=== PATIENT | female | born 1955 | race Two or more races ===

== ENCOUNTER → 2020-04-28 09:48 | Outpatient (BNVA) | payer OTHER, SELFPAY | PROVIDERS: PCP Internal Medicine Endocrinology, Diabetes & Metabolism; Referring Provider Internal Medicine Endocrinology, Diabetes & Metabolism; Visit Provider Hospitalist | DX: J45.40 Moderate persistent asthma, uncomplicated (principal); G47.33 Obstructive sleep apnea (adult) (pediatric); D86.9 Sarcoidosis, unspecified; Z23 Encounter for immunization | CPT/HCPCS: 90686 ==

== ENCOUNTER → 2020-08-10 14:17 | Outpatient (BNVA) | payer OTHER, SELFPAY | PROVIDERS: PCP Internal Medicine Endocrinology, Diabetes & Metabolism; Visit Provider Hospitalist ==

== ENCOUNTER → 2020-08-30 10:29 | Outpatient (BNVA) | payer OTHER, SELFPAY | PROVIDERS: PCP Internal Medicine Endocrinology, Diabetes & Metabolism; Visit Provider Hospitalist | DX: D86.9 Sarcoidosis, unspecified (principal) ==

== ENCOUNTER → 2020-12-17 10:51 | Outpatient (BNVA) | payer OTHER, SELFPAY | PROVIDERS: PCP Internal Medicine Endocrinology, Diabetes & Metabolism; Visit Provider Hospitalist ==

== ENCOUNTER → 2021-06-20 13:28 | Outpatient (BNVA) | payer MEDICARE, OTHER, SELFPAY | PROVIDERS: PCP Internal Medicine Endocrinology, Diabetes & Metabolism; Visit Provider Hospitalist | DX: J45.40 Moderate persistent asthma, uncomplicated (principal); G47.33 Obstructive sleep apnea (adult) (pediatric); D86.9 Sarcoidosis, unspecified; I21.4 Non-ST elevation (NSTEMI) myocardial infarction; I42.9 Cardiomyopathy, unspecified; Z23 Encounter for immunization | CPT/HCPCS: 90471; 90686; 99212 ==

== ENCOUNTER 2021-09-29 09:52 | Outpatient (REF) | payer MEDICARE, OTHER, SELFPAY ==
--- NOTE | 2021-09-29 13:20 | PFT_ITS ---
Forced vital capacity is 77%, FEV1 82%. FEV1/FVC is 82. FEF 25-75 93%. MVV 74%. Post bronchodilator therapy, there is no change. Total lung capacity 75%. Residual volume 79%. Diffusion capacity 71%. CONCLUSION: Mild restrictive pulmonary disorder. No obstructive airway disorder. No response to bronchodilator therapy. Clinical correlation is recommended. MD SUNDAY Bryan/MODL / [id number]
== END 2021-09-29 09:53 | disposition home or self-care (01) ==
LOC: HO.RESP 09:52
PROVIDERS: PCP Internal Medicine Endocrinology, Diabetes & Metabolism; Visit Provider Hospitalist
DX: D86.9 Sarcoidosis, unspecified (principal)
CPT/HCPCS: 94060; 94727; 94729; 99212

== ENCOUNTER → 2022-01-05 10:29 | Outpatient (BNVA) | payer MEDICARE, OTHER, SELFPAY | PROVIDERS: PCP Internal Medicine Endocrinology, Diabetes & Metabolism; Visit Provider Hospitalist | DX: D86.9 Sarcoidosis, unspecified (principal); J45.40 Moderate persistent asthma, uncomplicated; G47.33 Obstructive sleep apnea (adult) (pediatric); I21.4 Non-ST elevation (NSTEMI) myocardial infarction; I42.9 Cardiomyopathy, unspecified | CPT/HCPCS: 99212 ==

== ENCOUNTER → 2022-04-24 10:26 | Outpatient (BNVA) | payer MEDICARE, OTHER, SELFPAY | PROVIDERS: PCP Internal Medicine Endocrinology, Diabetes & Metabolism; Visit Provider Hospitalist | DX: D86.9 Sarcoidosis, unspecified (principal); J45.40 Moderate persistent asthma, uncomplicated; G47.33 Obstructive sleep apnea (adult) (pediatric); I42.9 Cardiomyopathy, unspecified; I25.2 Old myocardial infarction; Z23 Encounter for immunization | CPT/HCPCS: 90471; 90686; 99212 ==

== ENCOUNTER 2022-06-19 16:07 | Outpatient (REF) | payer MEDICARE, OTHER, SELFPAY ==
--- NOTE | ~2022-06-19 | XR_ITS ---
EXAMINATION: XR CHEST CLINICAL INFORMATION: The lungs are well-expanded and clear of acute process. The heart size and pulmonary vascularity is normal. There are dual pacer electrodes in right atrium and right ventricle. No gross bony abnormality seen. COMPARISON: Chest x-ray 03/31/2020 TECHNIQUE: 2 views of the chest were obtained. FINDINGS: No significant abnormality is noted involving the heart, lungs, mediastinum, bony thorax or soft tissues. XR/XR chest 2V IMPRESSION: Unremarkable chest examination.
[2022-06-19 16:24] LABS: MANUAL DIFF FLAG NO
[2022-06-19 16:33] LABS: Basophils Absolute Auto 0.1 X10*3/uL (0.0-0.2); Basophils Percent Auto 0.8 % (0-2); Eosinophils Absolute Auto 0.3 X10*3/uL (0.0-0.4); Hematocrit 36.6 % (37.0-47.0); Hemoglobin 11.6 g/dl (12.0-16.0); Imm Gran Abs Auto 0.01 X10*3/uL (0.00-0.03); Imm Gran Pct Auto 0.2 % (0.0-0.4); Lymphocytes Absolute Auto 1.8 X10*3/uL (1.2-4.9); Lymphocytes Percent Auto 29.4 % (20-40); Mean Corpuscular HGB Conc 31.7 g/dl (31.0-35.0); Mean Corpuscular Hemoglobin 28.2 pg (27.0-33.0); Mean Corpuscular Volume 88.8 fL (80.0-98.0); Mean Platelet Volume 10.3 fL (9.4-12.3); Monocytes Absolute Auto 0.4 X10*3/uL (0.1-1.2); Monocytes Percent Auto 6.7 % (2-11); Neutrophils Absolute Auto 3.4 x10*3/uL (2.0-8.3); Neutrophils Percent Auto 57.9 % (45-73); Platelet Count 204 X10*3/uL (160-400); Red Blood Count 4.12 X10*6/uL (4.20-5.50); Red Cell Distribution Width 14.5 % (11.0-16.0)
[2022-06-19 17:00] LABS: Alanine Aminotransferase 19 U/L (0-31); Albumin Level 4.3 g/dL (3.5-5.0); Alkaline Phosphatase 56 U/L (39-117); Anion Gap 12 (12-20); Aspartate Amino Transferase 22 U/L (5-31); Bilirubin Direct < 0.2 mg/dL (0.0-0.5); Bilirubin Total 0.4 mg/dL (0.0-1.0); Blood Urea Nitrogen 23 mg/dL (9-16); Calcium 9.4 mg/dL (8.4-10.2); Carbon Dioxide 25 mmol/L (22-29); Chloride 106 mmol/L (96-108); Estimated Glomerular Filt Rate > 60; Glucose Random 82 mg/dL (60-115); Potassium 4.4 mmol/L (3.3-5.1); Sodium 139 mmol/L (135-145); Total Protein 7.2 g/dL (6.5-8.0)
[2022-06-19 17:28] LABS: Erythrocyte Sedimentation Rate 16 MM/HR (0-20)
[2022-06-22 01:23] LABS: TS Negative Control Passed; TS Panel A 2; TS Panel B 0; TS Positive Control Passed; TSpotTB Negative (Negative)
[2022-06-22 10:34] LABS: Anti Nuclear Antibody Screen POSITIVE (NEGATIVE)
[2022-06-22 10:43] LABS: Anti Nuclear Antibody Titer 1:40 titer
[2022-06-23 04:58] LABS: Angiotensin Converting Enzyme 38 U/L (9-67)
== END 2022-06-19 16:08 | disposition home or self-care (01) ==
LOC: HO.LAB 16:07
PROVIDERS: Visit Provider Hospitalist
DX: D86.9 Sarcoidosis, unspecified (principal); J45.40 Moderate persistent asthma, uncomplicated; R05.3 Chronic cough; G47.33 Obstructive sleep apnea (adult) (pediatric); I21.4 Non-ST elevation (NSTEMI) myocardial infarction; I42.9 Cardiomyopathy, unspecified; Z95.0 Presence of cardiac pacemaker; Z98.890 Other specified postprocedural states; Z79.899 Other long term (current) drug therapy
CPT/HCPCS: 36415; 71046; 80048; 80076; 82164; 85025; 85652; 86038; 86039; 86481; 99212

== ENCOUNTER → 2022-08-01 11:02 | Outpatient (BNVA) | payer MEDICARE, OTHER, SELFPAY | PROVIDERS: PCP Internal Medicine Endocrinology, Diabetes & Metabolism; Visit Provider Hospitalist | DX: D86.9 Sarcoidosis, unspecified (principal); G47.33 Obstructive sleep apnea (adult) (pediatric); J45.40 Moderate persistent asthma, uncomplicated; I21.4 Non-ST elevation (NSTEMI) myocardial infarction; I42.9 Cardiomyopathy, unspecified | CPT/HCPCS: 99212 ==

== ENCOUNTER 2022-09-05 14:42 | Outpatient (REF) | payer MEDICARE, OTHER, SELFPAY ==
[2022-09-05 17:35] LABS: Basophils Absolute Auto 0.1 X10*3/uL (0.0-0.2); Basophils Percent Auto 0.5 % (0-2); Eosinophils Absolute Auto 0.4 X10*3/uL (0.0-0.4); Eosinophils Percent Auto 4.7 % (0-4); Hematocrit 34.5 % (37.0-47.0); Hemoglobin 10.7 g/dl (12.0-16.0); Imm Gran Abs Auto 0.03 X10*3/uL (0.00-0.03); Imm Gran Pct Auto 0.3 % (0.0-0.4); Lymphocytes Absolute Auto 1.8 X10*3/uL (1.2-4.9); Lymphocytes Percent Auto 19.5 % (20-40); MANUAL DIFF FLAG NO; Mean Corpuscular Hemoglobin 26.9 pg (27.0-33.0); Mean Corpuscular Volume 86.7 fL (80.0-98.0); Mean Platelet Volume 10.4 fL (9.4-12.3); Monocytes Absolute Auto 0.7 X10*3/uL (0.1-1.2); Monocytes Percent Auto 7.2 % (2-11); Neutrophils Absolute Auto 6.4 x10*3/uL (2.0-8.3); Neutrophils Percent Auto 67.8 % (45-73); Platelet Count 367 X10*3/uL (160-400); Red Blood Count 3.98 X10*6/uL (4.20-5.50); Red Cell Distribution Width 15.3 % (11.0-16.0); White Blood Count 9.4 X10*3/uL (4.8-10.8)
[2022-09-05 17:45] LABS: D Dimer High Sensitivity 309 NG/ML
[2022-09-05 18:00] LABS: Alanine Aminotransferase 14 U/L (0-31); Albumin Level 3.8 g/dL (3.5-5.0); Alkaline Phosphatase 69 U/L (39-117); Anion Gap 16 (12-20); Aspartate Amino Transferase 16 U/L (5-31); Bilirubin Direct < 0.2 mg/dL (0.0-0.5); Bilirubin Total 0.2 mg/dL (0.0-1.0); Blood Urea Nitrogen 19 mg/dL (9-16); Calcium 8.8 mg/dL (8.4-10.2); Carbon Dioxide 27 mmol/L (22-29); Chloride 105 mmol/L (96-108); Estimated Glomerular Filt Rate > 60; Glucose Random 106 mg/dL (60-115); Potassium 4.8 mmol/L (3.3-5.1); Sodium 143 mmol/L (135-145); Total Protein 6.5 g/dL (6.5-8.0)
[2022-09-05 18:09] LABS: Troponin-I High Sensitivity < 3.5 ng/L (<3.5-17.0)
[2022-09-05 20:15] LABS: Erythrocyte Sedimentation Rate 95 MM/HR (0-20)
[2022-09-12 06:29] LABS: Angiotensin Converting Enzyme 34.8 U/L (9-67)
== END 2022-09-05 14:43 | disposition home or self-care (01) ==
LOC: HO.LAB 14:42
PROVIDERS: PCP Internal Medicine Endocrinology, Diabetes & Metabolism; Visit Provider Hospitalist
DX: J45.40 Moderate persistent asthma, uncomplicated (principal); G47.33 Obstructive sleep apnea (adult) (pediatric); R07.9 Chest pain, unspecified; I42.9 Cardiomyopathy, unspecified; R78.89 Finding of other specified substances, not normally found in blood; D86.9 Sarcoidosis, unspecified
CPT/HCPCS: 36415; 80048; 80076; 82164; 84484; 85025; 85379; 85652; 99212

== ENCOUNTER 2022-09-06 14:42 | Outpatient (REF) | payer MEDICARE, OTHER, SELFPAY ==
--- NOTE | ~2022-09-06 | CT_ITS ---
EXAMINATION: CT ANGIOGRAM OF THE CHEST WITH AND WITHOUT CONTRAST (CT PULMONARY ANGIOGRAM FOR PE) CLINICAL INFORMATION: Reason for Exam R07.9 - Chest pain, unspecified COMPARISON: Previous chest x-rays most recent May 2022 TECHNIQUE: Prior to contrast administration, noncontrast localization images were obtained. Subsequently, multidetector volumetric imaging was performed from the thoracic inlet to below the diaphragms following the administration of 65 mL Omnipaque 350 intravenous contrast. No contrast reaction reported Sagittal, coronal, and MIP oblique sagittal reformatted images were obtained on the CT workstation, uploaded to PACS, and reviewed. This CT examination was performed using dose optimization techniques as appropriate, variously including the following: *Automated exposure control *Adjustment of mA and/or kV according to patient size (this includes techniques or standardized protocols for targeted exams where dose is matched to indication/reason for exam; i.e. extremities or head) *Use of iterative reconstruction technique Total exam dose-length product 220 mGy-cm FINDINGS: QUALITY OF STUDY/CONTRAST BOLUS: Satisfactory. PULMONARY ARTERIES: No central or segmental pulmonary emboli. THORACIC AORTA: No aneurysm or dissection. LUNG: There is focal peripheral wedge-shaped consolidation and surrounding irregularly-shaped nodular opacities seen in the posterior segment of the right upper lobe. There are additional smaller bilateral pulmonary nodules and more irregularly-shaped nodular opacities. Largest pulmonary nodules measure 1.2 cm in the left upper lobe and right lower lobe. PLEURA: No pleural effusion or pneumothorax. MEDIASTINUM: Enlarged heart. Left subclavian dual chamber pacemaker. No pericardial effusion. No enlarged hilar or mediastinal lymph nodes. Upper normal-sized pulmonary arteries. Normal caliber thoracic aorta. CORONARY ARTERY CALCIFICATION: None visualized on this study. CHEST WALL/AXILLA: No axillary or internal mammary lymphadenopathy. OSSEOUS STRUCTURES: No acute or suspicious osseous abnormality. Degenerative changes of the spine. UPPER ABDOMEN: Unremarkable. No reflux of contrast into the hepatic veins to suggest elevated right heart pressures. CT/CT angio chest PE protocol IMPRESSION: No evidence of pulmonary embolism. Large area of consolidation in the posterior segment of the right upper lobe and surrounding smaller nodular opacities. Bilateral smaller pulmonary nodules and nodular opacities, largest measuring 1.2 cm. Infectious, inflammatory and neoplastic processes should be considered. Enlarged heart. Upper normal-sized pulmonary arteries. VTE: negative Findings will be communicated by the [facility] work flow infant childcare provider.
[2022-09-06] MEDS: iohexoL 350 MG/ML 100 ML INFUS..BTL IV (15:21)
== END 2022-09-06 14:43 | disposition home or self-care (01) ==
LOC: HO.CT 14:42
PROVIDERS: PCP Internal Medicine Endocrinology, Diabetes & Metabolism; Visit Provider Hospitalist
DX: R07.9 Chest pain, unspecified (principal); R78.89 Finding of other specified substances, not normally found in blood
CPT/HCPCS: 71275; Q9967

== ENCOUNTER → 2022-09-28 12:47 | Outpatient (BNVA) | payer MEDICARE, OTHER, SELFPAY | PROVIDERS: PCP Internal Medicine Endocrinology, Diabetes & Metabolism; Visit Provider Hospitalist | DX: J45.40 Moderate persistent asthma, uncomplicated (principal); J18.9 Pneumonia, unspecified organism; R91.8 Other nonspecific abnormal finding of lung field; G47.33 Obstructive sleep apnea (adult) (pediatric); I42.9 Cardiomyopathy, unspecified; D86.9 Sarcoidosis, unspecified | CPT/HCPCS: 99212 ==

== ENCOUNTER → 2022-10-17 10:55 | Outpatient (BNVA) | payer MEDICARE, OTHER, SELFPAY | PROVIDERS: PCP Internal Medicine Endocrinology, Diabetes & Metabolism; Visit Provider Hospitalist | DX: D86.9 Sarcoidosis, unspecified (principal); J45.40 Moderate persistent asthma, uncomplicated; G47.33 Obstructive sleep apnea (adult) (pediatric); I42.9 Cardiomyopathy, unspecified; R91.8 Other nonspecific abnormal finding of lung field; J18.9 Pneumonia, unspecified organism | CPT/HCPCS: 99212 ==

== ENCOUNTER 2023-01-16 12:48 | Outpatient (REF) | payer MEDICARE, OTHER, SELFPAY ==
--- NOTE | ~2023-01-16 | CT_ITS ---
EXAMINATION: CT CHEST WITHOUT CONTRAST CLINICAL INFORMATION: Pulmonary nodule >8 mm COMPARISON: CT angiogram chest 09/06/2022: Bilateral smaller pulmonary nodules and nodular opacities, largest measuring 1.2 cm. Infectious, inflammatory and neoplastic processes should be considered. TECHNIQUE: Multidetector volumetric CT imaging of the chest was done. Axial MIP volume rendering provided. Sagittal and coronal reformatted images were obtained. This CT examination was performed using dose optimization techniques as appropriate, variously including the following: *Automated exposure control *Adjustment of mA and/or kV according to patient size (this includes techniques or standardized protocols for targeted exams where dose is matched to indication/reason for exam; i.e. extremities or head) *Use of iterative reconstruction technique DLP: 118 mGy-cm FINDINGS: LUNGS: Since the prior study, there has been improvement in the wedge-shaped consolidation previously seen in the right upper lobe. However, the irregular-shaped nodular opacities seen surrounding this in a vivo-wp-apu-type configuration appear unchanged to minimally improved. For example, a right upper lobe opacity which had measured 1.2 x 1.2 cm now measures 1.1 x 1.0 cm (5:100 compare prior 7:92). Similar irregular opacities are present in the left upper lobe. A left upper lobe opacity that had measured 0.8 x 0.6 cm now measures 0.6 x 0.4 cm (5:88 compare prior 7:62). Both Lower lobes appear normal without worrisome opacity or nodular density. MEDIASTINUM: A left chest wall dual-lead pacemaker is again seen. Some small mediastinal lymph nodes are present but there is no adenopathy. No aortic aneurysm. Thyroid appears unremarkable. CORONARY ARTERY CALCIFICATION: Moderate PLEURA: There is no pleural effusion. No pleural mass or thickening. AXILLA: No lymphadenopathy. UPPER ABDOMEN: Unremarkable. OSSEOUS STRUCTURES: Degenerative changes are present in the spine. No bony destructive lesions. CT/CT chest wo IV con IMPRESSION: 1. Improvement in the wedge-shaped consolidation in the right upper lobe. 2. Other irregular-shaped opacities in the upper lobes are unchanged to minimally improved. 3. No new suspicious lung nodules are seen. 4. Suspect etiology to be inflammatory/infectious and 3 month follow-up CT is recommended. Fleischner guidelines were followed.
== END 2023-01-16 12:49 | disposition home or self-care (01) ==
LOC: HO.CT 12:48
PROVIDERS: PCP Internal Medicine Endocrinology, Diabetes & Metabolism; Visit Provider Hospitalist
DX: R91.8 Other nonspecific abnormal finding of lung field (principal)
CPT/HCPCS: 71250

== ENCOUNTER 2023-02-19 11:07 | Outpatient (AMB) | payer MEDICARE, OTHER, SELFPAY ==
--- NOTE | 2023-02-19 11:24 | MHC.OFFVIS ---
Intake Vital Signs 02/19/23 11:25 Height 4 ft 11 in Weight 141 lb BMI 28.5 Pulse 63 Pulse Source Pulse Oximeter Pulse Oximetry (%) 99 Oxygen Delivery Method Room Air Intake Visit Reasons: COPD Make Up Artist Required: No Allergies No Known Allergies [No Known Allergies*] Allergy (Verified 02/19/23 11:26) HPI HPI Comments History of Present Illness Details The patient is a 68-year-old woman with a known history of sarcoid and obstructive sleep apnea. During the last visit the patient was having some chest discomfort. Her EKG was abnormal and her cardiac enzymes were elevated. She was admitted to the hospital in transfer to [facility]. There, she did have a cardiac catheterization demonstrated no significant CAD which is reassuring. Ultimately, underwent an MRI of the heart demonstrating no significant infiltrative cardiac disease to suggest cardiac sarcoid. Also, in the past she did have a cardiac PET that was negative for any cardiac sarcoid. 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 Current the patient has been feeling better. Her shortness of breath has improved. no evidence of active cardiac sarcoid at this time. will recheck her Champ level in the next few weeks and have to Champ level is elevated we will talk about repeating her cardiac PET scan. 06/20/2021 the patient is here for a pulmonary follow-up visit. Since we last spoke the patient is admitted to [facility] with chest discomfort. She was found to have a non ST elevation myocardial infarction. The workup included an echocardiogram with EF of 50-55%. She was noted to have left ventricular hypertrophy. The patient also underwent a cardiac catheterization without any significant coronary artery disease. She did follow-up with cardiology. The concern is if indeed she could have some active cardiac sarcoidosis. She has had a history of high-grade cardiac pauses requiring a pacemaker in the past. The patient denies any respiratory symptoms. At this point the patient requires a cardiac PET to address the question of cardiac sarcoidosis and see if she needs systemic immunosuppression. She was on steroids in the past but resulted significant adverse effects and she could not tolerate the systemic therapy. Therefore, will be important to get a cardiac PET to assess her need for systemic therapy. 09/29/2021 the patient is here for a pulmonary follow-up visit. Overall the patient is doing fair. She started to have a lot of her symptoms that she had back when she was diagnosed with sarcoidosis. Some neuropathy issues in some headache issues and fatigue. She did have a cardiac PET scan that was reassuring without any activity in the heart although she still has significant nodular densities in the lungs and lymph nodes that are active consistent with active sarcoidosis. She also has some dyspnea on exertion. The patient did have a pulmonary function study that we did review in the office demonstrating a mild restrictive ventilatory defect likely suggestive of her active sarcoid. The patient is agreeable to starting a small dose of methotrexate in order to improve the inflammatory changes. I am also hopeful that this does will provide her with some relief. The patient is very sensitive to medications and out that we can keep her on a low-dose at this time. Before starting the medication she is going to have blood work to make sure that her kidneys liver and blood counts are stable. She continues using her CPAP. 01/05/2022 the patient is here for pulmonary follow-up visit. The patient appears to be upset. She recently underwent a thyroid ultrasound which demonstrated left sided thyroid nodule. Was recommended she get a biopsy. We did review the results together. Explained to her that this will be a relatively benign procedure with local anesthesia. The patient was reassured. She is going to go ahead and get the biopsy done. I in regards of her sarcoidosis, she recently started the methotrexate. She has not been taking it for too long. Therefore will go ahead and just continue to watch her on this lower dose. Will plan to get blood work prior to consider increasing the medication in the fall. Patient denies any significant shortness of breath. Denies any significant cough or any other concerning respiratory symptoms. 04/24/2022 the patient is here for a pulmonary follow-up visit. She has multiple complaints. She started developing some visual changes in addition to that she has noted a lump in her subcutaneous tissue. We did talk that this may be manifestation of sarcoidosis. She has been taking the methotrexate with good adherence. However, she is taking a very small dose. Therefore the dose may have to be adjusted. She did have blood work recently we did reviewed. Since that she has a very mild anemia. Appears to be stable compared to previous drops. Will continue to monitor. Other laboratory data was reassuring. Seems to tolerate the methotrexate. She is reluctant to take more. I did explain to her that if indeed the sarcoid is active then additional medication will be warranted. The other option is to add a small dose of prednisone. She will have an appoint with silk screen layout drafter soon therefore that area could be further addressed. The patient also states that she has been having issues with increased heart rate. She does have cardiology at [facility] although her mold finisher is retired. She needs to be set up with a new mold finisher at [facility] at this time. Her last cardiac PET scan was reassuring without any evidence of any cardiac involvement although she did have significant hypermetabolic activity of the lymph nodes. 06/19/2022 the patient is here for a pulmonary follow-up visit. She continues to have fatigue in addition to dyspnea. She also complains of no a dry hacky cough. Moderate severity. She has been on the methotrexate. Did talk about the risks and adverse effects of methotrexate. Will go ahead and have her undergo blood work in addition to a chest x-ray to see if there is any evidence of pneumonitis or evidence of any issues with the methotrexate. In view of her ongoing symptoms she may be a very good candidate for Remicade. Remicade will be able to stabilize her sarcoid symptoms inflammation to a greater affecting the methotrexate. In view of her ongoing cough may be a sign that she is not tolerating the Immunomodulator. In the meantime will go ahead and treat her cough. She does use respiratory medications. The patient is resistant to use any systemic steroids at this time. 08/01/2022 the patient is here for a pulmonary follow-up visit. She is still continues to complaint of dyspnea. She had increased her methotrexate to 6 tablets weekly. Her cough improved. Although she was doing better then all of a sudden she started feeling worse again. She has been having more shortness of breath and chest tightness. Unfortunately she could not get the Symbicort because it was too expensive. She does have a rescue inhaler. We did review her last blood work and chest x-ray which were all reassuring. At this point she seems to be tolerating the methotrexate. I do not see any evidence of any adverse effects of pulmonary toxicity. Will plan to continue the current regimen and repeat her blood work and chest x-ray in 6-8 weeks. In the meantime I do have a sample of Breo that I did provide the patient is she can start treating her asthma. Her blood work did demonstrate eosinophilia suggesting an allergic component to her asthma. In addition to not taking the Symbicort the patient ran out of the Singulair because it was back order at the pharmacy. I did send it to a different pharmacy in order for her to be started. The patient understands that stopping the singular also with worsen her asthma symptoms. Now back on the Singulair and starting the Breo I am hoping that her symptoms will continue to improve. If however she has worsening symptoms she is to call the office. Otherwise we will follow-up in 6-8 weeks. 09/05/2022 the patient is here for a sick visit. She started developing worsening cough and also pleuritic chest discomfort along with back pain. Moderate to severe. She had a hard time breathing with it. She did follow-up with her primary care doctor who ordered a D-dimer. This was done at [facility]. The D-dimer was indeed elevated 0.94 N anything about 0.5 is considered abnormal. She also complained of like discomfort. Fell some tenderness behind the calf in the knee. 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 However, with a positive D-dimer will going to have to further look into this. I will going to have her repeat the D-dimer and also get additional blood work including kidney function in case we need to do a CTA. The patient's last chest x-ray was without any acute disease. She does have underlying sarcoidosis that is being treated with methotrexate at this time. It may be the case that the methotrexate may not be holding or stabilizing the sarcoidosis and she may need a different agent. Therefore, will send her some prednisone that she can use in the meantime while we wait for the blood work to come back. 09/28/2022 the patient is here for sick visit. She initially was doing okay and all the sudden her cough returned. Initially she developed laryngitis and lost her voice and then her cough has been even worse. moderate to severe in severity. She has been able to sleep because of the cough. She took the prednisone without any significant improvement. She has been on the methotrexate. She did have an elevated D-dimer so therefore she underwent a CTA. We personally reviewed in the office. No evidence of any pulmonary emboli although the patient does have evidence of airspace disease. She has been on the azithromycin. Will go ahead and switch over to Vantin for better coverage. In the meantime will take her off the methotrexate just in case she is having an adverse reaction to the medication. Another option will be to place on CellCept which should be also helpful in decreasing the sarcoid activity but does not have the pulmonary adverse effects. Remicade is also good option. patient does not want take any medications that have to do with opiates therefore she is not willing to take any other cough syrup with codeine. The Tessalon Perles are only partially helpful. I did recommend she pear picker Mucinex DM to see if that would help some. Will reassess and a few weeks. If the patient is no better will consider bronchoscopy further diagnostic interventions to assess the abnormal findings on the CT scan. We did talk about the likelihood of the progression of the sarcoidosis. However, need to consider infectious processes and or noninfectious inflammatory conditions. Malignancy is also in differential though less likely based on the fact that she has had this nodular densities to some degree in the past. 10/17/2022 the patient is overall doing better. Her cough is better and her breathing is better. She does stop the methotrexate and she did take the prednisone and also the Vantin. She also started the mycophenolate. However, after reading the side effects in the adverse issues potentially with that she decided to stop it altogether. Clinically the patient is feeling better and she opts to avoid any immunosuppressants at this time specially since she is going to need surgery in a couple months. I did agree with her as long she is doing okay. If her symptoms were to worsen we can also readdressed. I do believe that she was having a reaction to the methotrexate at the end. A or if anything indeed a could have been an infectious process. Do a way to know for sure is to repeat the CT scan in several months after her surgery in order to see if there is any progression of the airspace disease and nodular densities. If indeed she becomes symptomatic we can address that earlier. But right now will try to minimize her immune suppression in view of her other ongoing issues. Clinically patient is doing better. She is using respiratory therapy. 02/19/2023 the patient is here for a pulmonary follow-up visit. The patient's breathing seems to be better overall. She stop the methotrexate and has been off the prednisone. She also completed the antibiotics. The patient has been noticing lower extremity edema which is new for her. Moderate in the mouth. The patient did have a Doppler ultrasound the ruled out DVT. She no longer has a mold finisher. She was being followed by Cardiology program at [facility] specially with when she was diagnosed with cardiac sarcoidosis. The patient has not had an echo in more than a year. Will go ahead and start her on diuretics because appears to be volume overloaded will request blood work and also request an echocardiogram. The patient needs to be stab which with a new mold finisher at this time. Hold off any treatments for sarcoid at this time. Although depending on the results we can talk about potential therapies. She tried immunomodulators without any significant improvement if anything worsening symptoms. I do believe that if she has any evidence of active sarcoidosis we can consider Remicade as a very good option for her. REPLACED BY [facility] Medical History (Updated 02/19/23 @ 11:49 by Naldo Salguero MD) Asthma Cardiomyopathy Limb swelling NSTEMI (non-ST elevated myocardial infarction) JES (obstructive sleep apnea) Pneumonia Pulmonary nodules Sarcoid Family History Other HTN (hypertension) Social History Patient Tobacco Use Status: Never used Tobacco Review of Systems Const Denies fatigue, Denies headache(s) and Denies night sweats ENT Denies change in voice, Denies headache(s) and Denies lip swelling Card Denies chest pain, Reports leg edema, Denies dyspnea and Reports dyspnea on exertion Resp Denies chest congestion, Reports cough, Denies excessive phlegm production, Denies dyspnea and Reports dyspnea on exertion GI Denies abdominal pain Musc Denies no additional complaints and Denies tingling Neuro Denies Neuro-related abnormal movements, Denies headache(s) and Denies tingling Psych Denies no additional complaints Endo Denies fatigue Gucci/Lymph Denies easy bleeding and Denies lymphadenopathy Aller/Immun Denies lip swelling Physical Exam Vital Signs: Last Vital Signs Pulse 63 02/19/23 11:25 Pulse Ox 99 02/19/23 11:25 Oxygen Delivery Method Room Air 02/19/23 11:25 BMI result Body Mass Index 28.5 Const General: alert Neck Neck: Yes normal visual inspection, Yes full ROM and Yes no lymphadenopathy Chest Chest palpation & inspection: normal inspection of the chest Resp Effort & Inspection: normal respiratory effort Auscultation: diminished lung sounds Cardio Rate: regular rate Rhythm: regular rhythm Heart sounds: S1 normal heart sound present, S2 normal heart sound present and Murmur heart sound present GI Palpation (GI): Soft to palpation and nontender Auscultation: normal bowel sounds Skin General skin exam: rashes and/or lesions noted Extrem General: Yes edema Assessment & Plan Assessment & Plan (1) Sarcoid: Code(s): D86.9 - Sarcoidosis, unspecified (2) Asthma: Code(s): J45.909 - Unspecified asthma, uncomplicated Qualifiers: Asthma complication type: uncomplicated Asthma persistence: persistent Asthma severity: moderate Qualified Code(s): J45.40 - Moderate persistent asthma, uncomplicated (3) JES (obstructive sleep apnea): Comment: Not compliant with CPAP at this time Code(s): G47.33 - Obstructive sleep apnea (adult) (pediatric) (4) Cardiomyopathy: Code(s): I42.9 - Cardiomyopathy, unspecified (5) Pulmonary nodules: Code(s): R91.8 - Other nonspecific abnormal finding of lung field Plan REC: start Lasix Bloodwork ECHO Cardiology referral consider remicade continue Breo continue singulair Continue Benzonates Mucinex DM OTC ABIGAIL as needed follow-up with Dermatology in addition to ophthalmology F/U 2-[address] chest Orders: Orders CA echo transthoracic complete Today I27.20 - Pulmonary hypertension, unspecified, I42.9 - Cardiomyopathy, unspecified, M79.89 - Other specified soft tissue disorders Complete Blood Count Auto Diff Today D86.9 - Sarcoidosis, unspecified, M79.89 - Other specified soft tissue disorders Basic Metabolic Panel Today D86.9 - Sarcoidosis, unspecified, M79.89 - Other specified soft tissue disorders Liver Panel Today D86.9 - Sarcoidosis, unspecified, M79.89 - Other specified soft tissue disorders Angiotensin Converting Enzyme Today J18.9 - Pneumonia, unspecified organism B Type Natriuretic Peptide Today I42.9 - Cardiomyopathy, unspecified, I50.9 - Heart failure, unspecified Referrals Cardiology Referral I42.9 - Cardiomyopathy, unspecified, M79.89 - Other specified soft tissue disorders Medications: New furosemide (Lasix) 20 mg PO DAILY 30 tabs 1RF Coding Level of Care Code Est Pt Level 4 (37698) Diagnoses Sarcoid D86.9 Asthma J45.40 Asthma complication type: uncomplicated Asthma persistence: persistent Asthma severity: moderate JES (obstructive sleep apnea) G47.33 Cardiomyopathy I42.9 Pulmonary nodules R91.8 Time Spent (min) 20
[2023-02-19 11:25] VITALS: PULSE 63; O2SAT 99; BMI 28.5
== END 2023-02-19 11:56 | disposition home or self-care (01) ==
PROVIDERS: PCP Internal Medicine Endocrinology, Diabetes & Metabolism; Visit Provider Hospitalist
DX: D86.9 Sarcoidosis, unspecified (principal); J45.40 Moderate persistent asthma, uncomplicated; G47.33 Obstructive sleep apnea (adult) (pediatric); I42.9 Cardiomyopathy, unspecified; R91.8 Other nonspecific abnormal finding of lung field
CPT/HCPCS: 99214

== ENCOUNTER 2023-02-19 11:07 | Outpatient (REF) | payer MEDICARE, OTHER, SELFPAY ==
[2023-02-19 12:25] LABS: MANUAL DIFF FLAG NO
[2023-02-19 14:08] LABS: Basophils Absolute Auto 0.1 X10*3/uL (0.0-0.2); Basophils Percent Auto 0.8 % (0-2); Eosinophils Absolute Auto 0.3 X10*3/uL (0.0-0.4); Eosinophils Percent Auto 4.5 % (0-4); Hematocrit 34.6 % (37.0-47.0); Hemoglobin 10.6 g/dl (12.0-16.0); Imm Gran Abs Auto 0.02 X10*3/uL (0.00-0.03); Imm Gran Pct Auto 0.3 % (0.0-0.4); Lymphocytes Absolute Auto 1.9 X10*3/uL (1.2-4.9); Lymphocytes Percent Auto 25.1 % (20-40); Mean Corpuscular HGB Conc 30.6 g/dl (31.0-35.0); Mean Corpuscular Hemoglobin 25.2 pg (27.0-33.0); Mean Corpuscular Volume 82.2 fL (80.0-98.0); Mean Platelet Volume 11.1 fL (9.4-12.3); Monocytes Absolute Auto 0.5 X10*3/uL (0.1-1.2); Monocytes Percent Auto 6.5 % (2-11); Neutrophils Absolute Auto 4.7 x10*3/uL (2.0-8.3); Neutrophils Percent Auto 62.8 % (45-73); Platelet Count 215 X10*3/uL (160-400); Red Blood Count 4.21 X10*6/uL (4.20-5.50); Red Cell Distribution Width 16.5 % (11.0-16.0); White Blood Count 7.5 X10*3/uL (4.8-10.8)
[2023-02-19 14:39] LABS: B Type Natriuretic Peptide 34 pg/mL (<100)
[2023-02-19 15:50] LABS: Alanine Aminotransferase 19 U/L (0-31); Alkaline Phosphatase 52 U/L (39-117); Anion Gap 13 (12-20); Aspartate Amino Transferase 22 U/L (5-31); Bilirubin Direct 0.2 mg/dL (0.0-0.5); Bilirubin Total 0.4 mg/dL (0.0-1.0); Blood Urea Nitrogen 27 mg/dL (9-16); Calcium 9.3 mg/dL (8.4-10.2); Carbon Dioxide 25 mmol/L (22-29); Chloride 110 mmol/L (96-108); Estimated Glomerular Filt Rate > 60; Glucose Random 56 mg/dL (60-115); Potassium 3.9 mmol/L (3.3-5.1); Sodium 144 mmol/L (135-145)
[2023-02-23 08:49] LABS: Angiotensin Converting Enzyme 33 U/L (9-67)
== END 2023-02-19 11:08 | disposition home or self-care (01) ==
LOC: HO.LAB 11:07
PROVIDERS: PCP Internal Medicine Endocrinology, Diabetes & Metabolism; Visit Provider Hospitalist
DX: R91.8 Other nonspecific abnormal finding of lung field (principal); M79.89 Other specified soft tissue disorders; J18.9 Pneumonia, unspecified organism; I42.9 Cardiomyopathy, unspecified; I50.9 Heart failure, unspecified; D86.9 Sarcoidosis, unspecified; J45.40 Moderate persistent asthma, uncomplicated; G47.33 Obstructive sleep apnea (adult) (pediatric)
CPT/HCPCS: 36415; 80048; 80076; 82164; 83880; 85025; 99212

== ENCOUNTER → 2023-03-30 12:45 | Outpatient (REF) | payer MEDICARE, OTHER, SELFPAY ==
--- NOTE | 2023-03-30 13:17 | CA_ITS ---
Transthoracic Echocardiogram Patient (Last, First, Middle): Sharon Zhu, Gender: Female Date of : 1955 Age: 68 Procedure Date: 03/30/2023 Procedure Type: Transthoracic Echocardiogram Location: OP Height: 149.86 cm Weight: 64.41 kg BSA: 1.59 m2 Heart Rate: 60 bpm BP: 155 / 75 mmHg Department Sales Manager: SABRA Reddy MD: Naldo Salguero MD Slat Basket Maker Helper Machine: Corey Martinez MD Symptoms: I27.20 - Pulmonary hypertension, unspecified Study Quality: Fair ECG Rhythm: Sinus Conclusions: - 1. Normal LV systolic function with severe asymmetric septal hypertrophy without obstructive physiology with impaired relaxation filling pattern 2. Mild mitral regurgitation 3. Normal RV systolic pressure 4. No gross pericardial effusion Findings Left Ventricle Normal left ventricular size, thickness, and systolic function. The visually estimated ejection fraction is between 60-65%. There is no dynamic left ventricular outflow tract obstruction. Spectral Doppler is indicative of an impaired relaxation filling pattern. E/E prime ratio is between 8 and 15 consistent with indeterminate filling pressures. There is severe septal asymmetric hypertrophy. Peak GLS is -17.5%, borderline normal. Right Ventricle Normal right ventricular cavity size and systolic function. Atria The left atrium is normal in size. There is no evidence of interatrial shunt. The right atrium is normal in size. Aortic Valve Normal aortic valve structure and function. There is no aortic valve stenosis. There is no aortic valve regurgitation. Mitral Valve Normal mitral valve structure and function. There is mild mitral valve regurgitation. There is no mitral valve stenosis. Pulmonic Valve The pulmonic valve is likely normal. There is trace pulmonic valve regurgitation. Tricuspid Valve Normal tricuspid valve structure. There is trace tricuspid valve regurgitation. The right ventricular systolic pressure is normal. Normal right atrial pressure. There is no evidence of pulmonary hypertension. Great Vessels All visible segments of the aorta are normal in size. The pulmonary artery was not well visualized. Venous The inferior vena cava is normal in size and collapses greater than 50% with inspiration. Pericardium/Pleural There is no evidence of pericardial effusion. Prior Study Comparison No prior study available for comparison. Measurements 2D Linear Measurements IVSd: 2.10 0.6-0.9/0.6-1.0 cm LVIDd: 3.10 3.9-5.3/4.2-5.9 cm LVIDd Index: 1.95 2.4-3.2/2.2-3.1 cm/m2 LVIDs: 2.00 2.0-3.6 cm LVPWd: 1.00 0.7-1.1 cm LA Diam: 3.70 2.7-3.8/3.0-4.0 cm LAIDs Index: 2.33 1.5-2.3 cm/m2 LV Mass: 216.88 67-162/88-224 g LV Mass Index: 136.40 43-95/49-115 g/m2 LVOT Diam: 1.90 3.0+(-)1.3 cm 2D Systolic Function EF 4C: 53.70 >55% EF 2C: 71.30 >55% EF BiP: 63.10 >55% Mitral Valve MV Pk E: 0.72 MV PK A: 0.70 MV Decel Time: 204.00 E/A: 1.00 E'Lateral: 10.10 E'Medial: 4.90 E/E' Med: 14.60 E/E' Lat: 7.10 PHT: 60.00 MVA PHT: 3.67 Decel Loíza: 3.50 Aortic Valve AoV Pk Dominik: 1.19 AoV Mn Dominik: 0.89 AoV VTI: 0.30 AoV Pk Grad: 6.00 Aov Mn Grad: 4.00 KAL Cont.VTI: 2.27 LVOT LVOT Pk Dominik: 0.93 LVOT Mn Dominik: 0.72 LVOT VTI: 0.24 LVOT Pk Grad: 3.00 LVOT Mn Grad: 2.00 LVOT Diam: 1.90 LVOT Area: 2.84 Diastolic Function MV Pk E: 0.72 MV Pk A: 0.70 E/A: 1.00 E'Medial: 4.90 E/E' Med: 14.60 E' Laterial: 10.10 E/E' Lat: 7.10 Right Ventricle TAPSE (mm): 17.10 TVS' Dominik: 9.57 Tricuspid Valve TR Pk Dominik: 1.79 TR Pk Grad: 13.00 RA Press: 3.00 RVSP: 16.00 Great Vessels Aorta Sinus of Valsalva: 3.30 2.0-3.5 cm Ao Asc: 3.40 2.1-3.4 cm Pulmonary Valve PV Pk Dominik: 1.05 Peak PV Grad: 4.00 Updated in Other Vendor System with Status of Final Corey Martinez MD electronically signed on 03/30/2023 3:56:46 PM with status of Final
== END ==
LOC: HO.CARD 12:45
PROVIDERS: PCP Internal Medicine Endocrinology, Diabetes & Metabolism; Visit Provider Hospitalist
DX: I27.20 Pulmonary hypertension, unspecified (principal); I42.9 Cardiomyopathy, unspecified; M79.89 Other specified soft tissue disorders
CPT/HCPCS: 93306; 93356

== ENCOUNTER → 2023-03-30 13:17 | Outpatient (BNV) | payer MEDICARE, OTHER, SELFPAY | PROVIDERS: PCP Internal Medicine Endocrinology, Diabetes & Metabolism; Visit Provider Internal Medicine Cardiovascular Disease | DX: I34.0 Nonrheumatic mitral (valve) insufficiency (principal) | CPT/HCPCS: 93306 ==

== ENCOUNTER 2023-05-15 10:00 | Outpatient (REF) | payer MEDICARE, OTHER, SELFPAY ==
[2023-05-15 10:19] LABS: MANUAL DIFF FLAG NO
[2023-05-15 10:40] LABS: Basophils Absolute Auto 0.1 X10*3/uL (0.0-0.2); Basophils Percent Auto 0.7 % (0-2); Eosinophils Absolute Auto 0.3 X10*3/uL (0.0-0.4); Eosinophils Percent Auto 4.5 % (0-4); Hemoglobin 12.4 g/dl (12.0-16.0); Imm Gran Abs Auto 0.02 X10*3/uL (0.00-0.03); Imm Gran Pct Auto 0.3 % (0.0-0.4); Lymphocytes Absolute Auto 1.9 X10*3/uL (1.2-4.9); Mean Corpuscular HGB Conc 31.8 g/dl (31.0-35.0); Mean Corpuscular Hemoglobin 26.6 pg (27.0-33.0); Mean Corpuscular Volume 83.5 fL (80.0-98.0); Mean Platelet Volume 9.8 fL (9.4-12.3); Monocytes Absolute Auto 0.5 X10*3/uL (0.1-1.2); Monocytes Percent Auto 7.7 % (2-11); Neutrophils Absolute Auto 4.1 x10*3/uL (2.0-8.3); Neutrophils Percent Auto 59.8 % (45-73); Platelet Count 320 X10*3/uL (160-400); Red Blood Count 4.67 X10*6/uL (4.20-5.50); Red Cell Distribution Width 14.1 % (11.0-16.0); White Blood Count 6.9 X10*3/uL (4.8-10.8)
[2023-05-15 11:08] LABS: Alanine Aminotransferase 24 U/L (0-31); Albumin Level 4.5 g/dL (3.5-5.0); Alkaline Phosphatase 56 U/L (39-117); Anion Gap 14 (12-20); Aspartate Amino Transferase 28 U/L (5-31); Bilirubin Direct 0.2 mg/dL (0.0-0.5); Bilirubin Total 0.4 mg/dL (0.0-1.0); Blood Urea Nitrogen 23 mg/dL (9-16); Calcium 9.8 mg/dL (8.4-10.2); Carbon Dioxide 28 mmol/L (22-29); Chloride 103 mmol/L (96-108); Estimated Glomerular Filt Rate 59; Glucose Random 91 mg/dL (60-115); Potassium 4.4 mmol/L (3.3-5.1); Sodium 141 mmol/L (135-145); Total Protein 8.1 g/dL (6.5-8.0)
[2023-05-15 11:32] LABS: Erythrocyte Sedimentation Rate 27 MM/HR (0-20)
== END 2023-05-15 10:01 | disposition home or self-care (01) ==
LOC: HO.LAB 10:00
PROVIDERS: PCP Internal Medicine Endocrinology, Diabetes & Metabolism; Visit Provider Hospitalist
DX: D86.9 Sarcoidosis, unspecified (principal); M79.89 Other specified soft tissue disorders
CPT/HCPCS: 36415; 80048; 80076; 85025; 85652

== ENCOUNTER 2023-05-21 10:06 | Outpatient (AMB) | payer MEDICARE, OTHER, SELFPAY ==
--- NOTE | 2023-05-21 10:16 | MHC.OFFVIS ---
Intake Intake Visit Reasons: copd Allergies No Known Allergies [No Known Allergies*] Allergy (Verified 02/19/23 11:26) HPI HPI Comments History of Present Illness Details The patient is a 68-year-old woman with a known history of sarcoid and obstructive sleep apnea. During the last visit the patient was having some chest discomfort. Her EKG was abnormal and her cardiac enzymes were elevated. She was admitted to the hospital in transfer to [facility]. There, she did have a cardiac catheterization demonstrated no significant CAD which is reassuring. Ultimately, underwent an MRI of the heart demonstrating no significant infiltrative cardiac disease to suggest cardiac sarcoid. Also, in the past she did have a cardiac PET that was negative for any cardiac sarcoid. 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 Current the patient has been feeling better. Her shortness of breath has improved. no evidence of active cardiac sarcoid at this time. will recheck her Champ level in the next few weeks and have to Champ level is elevated we will talk about repeating her cardiac PET scan. 01/05/2022 the patient is here for pulmonary follow-up visit. The patient appears to be upset. She recently underwent a thyroid ultrasound which demonstrated left sided thyroid nodule. Was recommended she get a biopsy. We did review the results together. Explained to her that this will be a relatively benign procedure with local anesthesia. The patient was reassured. She is going to go ahead and get the biopsy done. I in regards of her sarcoidosis, she recently started the methotrexate. She has not been taking it for too long. Therefore will go ahead and just continue to watch her on this lower dose. Will plan to get blood work prior to consider increasing the medication in the fall. Patient denies any significant shortness of breath. Denies any significant cough or any other concerning respiratory symptoms. 04/24/2022 the patient is here for a pulmonary follow-up visit. She has multiple complaints. She started developing some visual changes in addition to that she has noted a lump in her subcutaneous tissue. We did talk that this may be manifestation of sarcoidosis. She has been taking the methotrexate with good adherence. However, she is taking a very small dose. Therefore the dose may have to be adjusted. She did have blood work recently we did reviewed. Since that she has a very mild anemia. Appears to be stable compared to previous drops. Will continue to monitor. Other laboratory data was reassuring. Seems to tolerate the methotrexate. She is reluctant to take more. I did explain to her that if indeed the sarcoid is active then additional medication will be warranted. The other option is to add a small dose of prednisone. She will have an appoint with supervisor char house soon therefore that area could be further addressed. The patient also states that she has been having issues with increased heart rate. 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 She needs to be set up with a new field crop grower at [facility] at this time. Her last cardiac PET scan was reassuring without any evidence of any cardiac involvement although she did have significant hypermetabolic activity of the lymph nodes. 06/19/2022 the patient is here for a pulmonary follow-up visit. She continues to have fatigue in addition to dyspnea. She also complains of no a dry hacky cough. Moderate severity. She has been on the methotrexate. Did talk about the risks and adverse effects of methotrexate. Will go ahead and have her undergo blood work in addition to a chest x-ray to see if there is any evidence of pneumonitis or evidence of any issues with the methotrexate. In view of her ongoing symptoms she may be a very good candidate for Remicade. Remicade will be able to stabilize her sarcoid symptoms inflammation to a greater affecting the methotrexate. In view of her ongoing cough may be a sign that she is not tolerating the Immunomodulator. In the meantime will go ahead and treat her cough. She does use respiratory medications. The patient is resistant to use any systemic steroids at this time. 08/01/2022 the patient is here for a pulmonary follow-up visit. She is still continues to complaint of dyspnea. She had increased her methotrexate to 6 tablets weekly. Her cough improved. Although she was doing better then all of a sudden she started feeling worse again. She has been having more shortness of breath and chest tightness. Unfortunately she could not get the Symbicort because it was too expensive. She does have a rescue inhaler. We did review her last blood work and chest x-ray which were all reassuring. At this point she seems to be tolerating the methotrexate. I do not see any evidence of any adverse effects of pulmonary toxicity. Will plan to continue the current regimen and repeat her blood work and chest x-ray in 6-8 weeks. In the meantime I do have a sample of Breo that I did provide the patient is she can start treating her asthma. Her blood work did demonstrate eosinophilia suggesting an allergic component to her asthma. In addition to not taking the Symbicort the patient ran out of the Singulair because it was back order at the pharmacy. I did send it to a different pharmacy in order for her to be started. The patient understands that stopping the singular also with worsen her asthma symptoms. Now back on the Singulair and starting the Breo I am hoping that her symptoms will continue to improve. If however she has worsening symptoms she is to call the office. Otherwise we will follow-up in 6-8 weeks. 09/05/2022 the patient is here for a sick visit. She started developing worsening cough and also pleuritic chest discomfort along with back pain. Moderate to severe. She had a hard time breathing with it. She did follow-up with her primary care doctor who ordered a D-dimer. This was done at [facility]. The D-dimer was indeed elevated 0.94 N anything about 0.5 is considered abnormal. She also complained of like discomfort. Fell some tenderness behind the calf in the knee. 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 However, with a positive D-dimer will going to have to further look into this. I will going to have her repeat the D-dimer and also get additional blood work including kidney function in case we need to do a CTA. The patient's last chest x-ray was without any acute disease. She does have underlying sarcoidosis that is being treated with methotrexate at this time. It may be the case that the methotrexate may not be holding or stabilizing the sarcoidosis and she may need a different agent. Therefore, will send her some prednisone that she can use in the meantime while we wait for the blood work to come back. 09/28/2022 the patient is here for sick visit. She initially was doing okay and all the sudden her cough returned. Initially she developed laryngitis and lost her voice and then her cough has been even worse. moderate to severe in severity. She has been able to sleep because of the cough. She took the prednisone without any significant improvement. She has been on the methotrexate. She did have an elevated D-dimer so therefore she underwent a CTA. We personally reviewed in the office. No evidence of any pulmonary emboli although the patient does have evidence of airspace disease. She has been on the azithromycin. Will go ahead and switch over to Vantin for better coverage. In the meantime will take her off the methotrexate just in case she is having an adverse reaction to the medication. Another option will be to place on CellCept which should be also helpful in decreasing the sarcoid activity but does not have the pulmonary adverse effects. Remicade is also good option. patient does not want take any medications that have to do with opiates therefore she is not willing to take any other cough syrup with codeine. The Tessalon Perles are only partially helpful. I did recommend she cone picker Mucinex DM to see if that would help some. Will reassess and a few weeks. If the patient is no better will consider bronchoscopy further diagnostic interventions to assess the abnormal findings on the CT scan. We did talk about the likelihood of the progression of the sarcoidosis. However, need to consider infectious processes and or noninfectious inflammatory conditions. Malignancy is also in differential though less likely based on the fact that she has had this nodular densities to some degree in the past. 10/17/2022 the patient is overall doing better. Her cough is better and her breathing is better. She does stop the methotrexate and she did take the prednisone and also the Vantin. She also started the mycophenolate. However, after reading the side effects in the adverse issues potentially with that she decided to stop it altogether. Clinically the patient is feeling better and she opts to avoid any immunosuppressants at this time specially since she is going to need surgery in a couple months. I did agree with her as long she is doing okay. If her symptoms were to worsen we can also readdressed. I do believe that she was having a reaction to the methotrexate at the end. A or if anything indeed a could have been an infectious process. Do a way to know for sure is to repeat the CT scan in several months after her surgery in order to see if there is any progression of the airspace disease and nodular densities. If indeed she becomes symptomatic we can address that earlier. But right now will try to minimize her immune suppression in view of her other ongoing issues. Clinically patient is doing better. She is using respiratory therapy. 02/19/2023 the patient is here for a pulmonary follow-up visit. The patient's breathing seems to be better overall. She stop the methotrexate and has been off the prednisone. She also completed the antibiotics. The patient has been noticing lower extremity edema which is new for her. Moderate in the mouth. The patient did have a Doppler ultrasound the ruled out DVT. 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 She was being followed by Cardiology program at [facility] specially with when she was diagnosed with cardiac sarcoidosis. The patient has not had an echo in more than a year. Will go ahead and start her on diuretics because appears to be volume overloaded will request blood work and also request an echocardiogram. The patient needs to be stab which with a new field crop grower at this time. Hold off any treatments for sarcoid at this time. Although depending on the results we can talk about potential therapies. She tried immunomodulators without any significant improvement if anything worsening symptoms. I do believe that if she has any evidence of active sarcoidosis we can consider Remicade as a very good option for her. 05/21/2023 the patient is here for a pulmonary follow-up visit. Overall she is feeling better. She continues on the Lasix 20 mg daily. Although she has noticed some increased lower extremity swelling since we last spoke. Should go ahead increase it to 2 tablets for the next few days and then go back down to 20 mg daily. She did have an echocardiogram demonstrating significant asymmetric hypertrophy of the left ventricle. She will be following up with Cardiology soon. She is also going to have a pacemaker check as well. We did review her blood work which is reassuring. The inflammatory markers have subsided significantly. At this point the patient does not need any therapy for the sarcoid as appears to be dormant. She continues use respiratory therapy as needed. Recently she did have a upper respiratory illness and she was able to clear without any medications prescribed. Clinically the patient is doing better will follow-up in 4-6 months. [facility] Medical History (Updated 05/21/23 @ 10:17 by Naldo Salguero MD) Limb swelling Pneumonia Pulmonary nodules Cardiomyopathy NSTEMI (non-ST elevated myocardial infarction) JES (obstructive sleep apnea) Asthma Sarcoid Family History Other HTN (hypertension) Social History Patient Tobacco Use Status: Never used Tobacco Review of Systems Const Denies fatigue, Denies headache(s) and Denies night sweats ENT Denies change in voice, Denies headache(s) and Denies lip swelling Card Denies chest pain, Reports leg edema, Denies dyspnea and Denies dyspnea on exertion Resp Denies chest congestion, Reports cough, Denies excessive phlegm production, Denies dyspnea and Denies dyspnea on exertion GI Denies abdominal pain Musc Denies no additional complaints and Denies tingling Neuro Denies Neuro-related abnormal movements, Denies headache(s) and Denies tingling Psych Denies no additional complaints Endo Denies fatigue Gucci/Lymph Denies easy bleeding and Denies lymphadenopathy Aller/Immun Denies lip swelling Physical Exam Const General: alert HEENT Head: Yes normocephalic Neck Neck: Yes normal visual inspection, Yes full ROM and Yes no lymphadenopathy Chest Chest palpation & inspection: normal inspection of the chest Resp Effort & Inspection: normal respiratory effort Auscultation: diminished lung sounds Cardio Rate: regular rate Rhythm: regular rhythm Heart sounds: S1 normal heart sound present, S2 normal heart sound present and Murmur heart sound present GI Palpation (GI): Soft to palpation and nontender Auscultation: normal bowel sounds Skin General skin exam: rashes and/or lesions noted Extrem General: Yes edema Immunizations pneumoc 20-abhilash conj-dip cr(PF) 0.5 mL IM syringe Performing Provider: Naldo Salguero MD Performing Location: [facility] [place] [facility] Administered by: Linda Bhatti LPN on 05/21/23 10:33 Dose Route Admin Location Dispensed Lot Number Expiration Date 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 0.5 mL IM Left Deltoid 0.5 mL [id number] 05/22/24 [id number] [employer] [place] VIS Given Date VIS Provided VIS Publication Date 05/21/23 Single Vaccine 22 Eligibility Eligibility Date Funding Source Not [facility] Eligible 05/21/23 Private Assessment & Plan Assessment & Plan (1) Sarcoid: Code(s): D86.9 - Sarcoidosis, unspecified (2) Asthma: Code(s): J45.909 - Unspecified asthma, uncomplicated Qualifiers: Asthma complication type: uncomplicated Asthma persistence: persistent Asthma severity: moderate Qualified Code(s): J45.40 - Moderate persistent asthma, uncomplicated (3) JES (obstructive sleep apnea): Comment: Not compliant with CPAP at this time Code(s): G47.33 - Obstructive sleep apnea (adult) (pediatric) (4) Cardiomyopathy: Code(s): I42.9 - Cardiomyopathy, unspecified Qualifiers: Cardiomyopathy type: unspecified Qualified Code(s): I42.9 - Cardiomyopathy, unspecified (5) Pulmonary nodules: Code(s): R91.8 - Other nonspecific abnormal finding of lung field Plan REC: continue Lasix, additional lasix x 2-3 days, then back to 20mg daily Cardiology referral pending consider remicade, holding for now as the sarcoid appears to be dormant continue Breo continue singulair Continue Benzonates as needed ABIGAIL as needed follow-up with Dermatology in addition to ophthalmology F/U 4-6 months Orders: Orders Pneumococcal 20 Immunization Today Z23 - Encounter for immunization Medications: Changed From furosemide (Lasix) 20 mg PO DAILY 30 tabs 1RF To furosemide (Lasix) 40 mg (2 x 20 mg) PO DAILY 30 tabs 3RF Coding Level of Care Code Est Pt Level 4 (50335) Diagnoses Sarcoid D86.9 Moderate persistent asthma without complication J45.40 Asthma complication type: uncomplicated Asthma persistence: persistent Asthma severity: moderate JES (obstructive sleep apnea) G47.33 Cardiomyopathy, unspecified type I42.9 Cardiomyopathy type: unspecified Pulmonary nodules R91.8 Time Spent (min) 17
== END 2023-05-21 10:32 | disposition home or self-care (01) ==
PROVIDERS: PCP Internal Medicine Endocrinology, Diabetes & Metabolism; Visit Provider Hospitalist
DX: D86.9 Sarcoidosis, unspecified (principal); J45.40 Moderate persistent asthma, uncomplicated; G47.33 Obstructive sleep apnea (adult) (pediatric); I42.9 Cardiomyopathy, unspecified; R91.8 Other nonspecific abnormal finding of lung field
CPT/HCPCS: 99214

== ENCOUNTER → 2023-05-21 10:06 | Outpatient (BNVA) | payer MEDICARE, OTHER, SELFPAY | PROVIDERS: PCP Internal Medicine Endocrinology, Diabetes & Metabolism; Visit Provider Hospitalist | DX: Z23 Encounter for immunization (principal); D86.9 Sarcoidosis, unspecified; J45.40 Moderate persistent asthma, uncomplicated; R91.8 Other nonspecific abnormal finding of lung field; G47.33 Obstructive sleep apnea (adult) (pediatric); I42.9 Cardiomyopathy, unspecified | CPT/HCPCS: 90471; 90677; 99212 ==

== ENCOUNTER 2023-08-20 09:47 | Outpatient (REF) | payer MEDICARE, OTHER, SELFPAY ==
[2023-08-20 10:40] LABS: MANUAL DIFF FLAG NO
[2023-08-20 11:36] LABS: Basophils Absolute Auto 0.1 X10*3/uL (0.0-0.2); Basophils Percent Auto 0.8 % (0-2); Eosinophils Absolute Auto 0.3 X10*3/uL (0.0-0.4); Eosinophils Percent Auto 3.5 % (0-4); Hematocrit 33.9 % (37.0-47.0); Hemoglobin 10.7 g/dl (12.0-16.0); Imm Gran Abs Auto 0.02 X10*3/uL (0.00-0.03); Imm Gran Pct Auto 0.3 % (0.0-0.4); Lymphocytes Absolute Auto 1.9 X10*3/uL (1.2-4.9); Lymphocytes Percent Auto 25.9 % (20-40); Mean Corpuscular HGB Conc 31.6 g/dl (31.0-35.0); Mean Corpuscular Hemoglobin 26.1 pg (27.0-33.0); Mean Corpuscular Volume 82.7 fL (80.0-98.0); Mean Platelet Volume 10.5 fL (9.4-12.3); Monocytes Absolute Auto 0.5 X10*3/uL (0.1-1.2); Monocytes Percent Auto 7.4 % (2-11); Neutrophils Absolute Auto 4.5 x10*3/uL (2.0-8.3); Neutrophils Percent Auto 62.1 % (45-73); Platelet Count 228 X10*3/uL (160-400); Red Cell Distribution Width 14.5 % (11.0-16.0); White Blood Count 7.2 X10*3/uL (4.8-10.8)
[2023-08-20 12:19] LABS: Erythrocyte Sedimentation Rate 25 MM/HR (0-20)
[2023-08-20 12:42] LABS: Alanine Aminotransferase 19 U/L (0-31); Albumin Level 4.3 g/dL (3.5-5.0); Alkaline Phosphatase 55 U/L (39-117); Anion Gap 11 (12-20); Aspartate Amino Transferase 21 U/L (5-31); Bilirubin Direct 0.1 mg/dL (0.0-0.5); Bilirubin Total 0.3 mg/dL (0.0-1.0); Blood Urea Nitrogen 34 mg/dL (9-16); Calcium 9.2 mg/dL (8.4-10.2); Carbon Dioxide 26 mmol/L (22-29); Chloride 108 mmol/L (96-108); Estimated Glomerular Filt Rate 56; Glucose Random 92 mg/dL (60-115); Potassium 3.9 mmol/L (3.3-5.1); Sodium 141 mmol/L (135-145); Total Protein 7.7 g/dL (6.5-8.0)
[2023-08-20 13:13] LABS: TSH reflex Free T4 4.27 uIU/mL (0.32-4.0)
[2023-08-20 14:10] LABS: Free T4 (Free Thyroxine) 0.97 ng/dL (0.71-1.85)
[2023-08-23 17:59] LABS: Angiotensin Converting Enzyme 32 U/L (9-67)
== END 2023-08-20 09:48 | disposition home or self-care (01) ==
LOC: HO.LAB 09:47
PROVIDERS: PCP Internal Medicine Endocrinology, Diabetes & Metabolism; Visit Provider Hospitalist
DX: M79.89 Other specified soft tissue disorders (principal); D86.9 Sarcoidosis, unspecified; J45.40 Moderate persistent asthma, uncomplicated; I42.9 Cardiomyopathy, unspecified; R91.8 Other nonspecific abnormal finding of lung field; G47.33 Obstructive sleep apnea (adult) (pediatric)
CPT/HCPCS: 36415; 80048; 80076; 82164; 84439; 84443; 85025; 85652; 99212

== ENCOUNTER 2023-08-20 09:47 | Outpatient (AMB) | payer MEDICARE, OTHER, SELFPAY ==
[2023-08-20 09:55] VITALS: PULSE 67; O2SAT 100; BMI 32.0
--- NOTE | 2023-08-20 09:55 | A.OFFVIS_ITS ---
Intake Vital Signs 08/20/23 09:55 Height 4 ft 9 in Weight 148 lb BMI 32.0 Pulse 67 Pulse Source Pulse Oximeter Pulse Oximetry (%) 100 Oxygen Delivery Method Room Air Intake Visit Reasons: copd Computer Security Coordinator Required: No Allergies No Known Allergies [No Known Allergies*] Allergy (Verified 08/20/23 09:57) HPI HPI Comments History of Present Illness Details The patient is a 68-year-old woman with a known history of sarcoid and obstructive sleep apnea. During the last visit the patient was having some chest discomfort. Her EKG was abnormal and her cardiac enzymes were elevated. She was admitted to the hospital in transfer to [facility]. There, she did have a cardiac catheterization demonstrated no significant CAD which is reassuring. Ultimately, underwent an MRI of the heart demonstrating no significant infiltrative cardiac disease to suggest cardiac sarcoid. Also, in the past she did have a cardiac PET that was negative for any cardiac sarcoid. 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 Current the patient has been feeling better. Her shortness of breath has improved. no evidence of active cardiac sarcoid at this time. will recheck her Champ level in the next few weeks and have to Champ level is elevated we will talk about repeating her cardiac PET scan. 08/01/2022 the patient is here for a pulm onary follow-up visit. She is still continues to complaint of dyspnea. She had increased her methotrexate to 6 tablets weekly. Her cough improved. Although she was doing better then all of a sudden she started feeling worse again. She has been having more shortness of breath and chest tightness. Unfortunately she could not get the Symbicort because it was too expensive. She does have a rescue inhaler. We did review her last blood work and chest x-ray which were all reassuring. At this point she seems to be tolerating the methotrexate. I do not see any evidence of any adverse effects of pulmonary toxicity. Will plan to continue the current regimen and repeat her blood work and chest x-ray in 6-8 weeks. In the meantime I do have a sample of Breo that I did provide the patient is she can start treating her asthma. Her blood work did demonstrate eosinophilia suggesting an allergic component to her asthma. In addition to not taking the Symbicort the patient ran out of the Singulair because it was back order at the pharmacy. I did send it to a different pharmacy in order for her to be started. The patient understands that stopping the singular also with worsen her asthma symptoms. Now back on the Singulair and starting the Breo I am hoping that her symptoms will continue to improve. If however she has worsening symptoms she is to call the office. Otherwise we will follow-up in 6-8 weeks. 09/05/2022 the patient is here for a sick visit. She started developing worsening cough and also pleuritic chest discomfort along with back pain. Moderate to severe. She had a hard time breathing with it. She did follow-up with her primary care doctor who ordered a D-dimer. This was done at [facility]. The D-dimer was indeed elevated 0.94 N anything about 0.5 is considered abnormal. She also complained of like discomfort. Fell some tenderness behind the calf in the knee. 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 However, with a positive D-dimer will going to have to further look into this. I will going to have her repeat the D-dimer and also get additional blood work including kidney function in case we need to do a CTA. The patient's last chest x-ray was without any acute disease. She does have underlying sarcoidosis that is being treated with methotrexate at this time. It may be the case that the methotrexate may not be holding or stabilizing the sarcoidosis and she may need a different agent. Therefore, will send her some prednisone that she can use in the meantime while we wait for the blood work to come back. 09/28/2022 the patient is here for sick vi sit. She initially was doing okay and all the sudden her cough returned. Initially she developed laryngitis and lost her voice and then her cough has been even worse. moderate to severe in severity. She has been able to sleep because of the cough. She took the prednisone without any significant improvement. She has been on the methotrexate. She did have an elevated D-dimer so therefore she underwent a CTA. We personally reviewed in the office. No evidence of any pulmonary emboli although the patient does have evidence of airspace disease. She has been on the azithromycin. Will go ahead and switch over to Vantin for better coverage. In the meantime will take her off the methotrexate just in case she is having an adverse reaction to the medication. Another option will be to place on CellCept which should be also helpful in decreasing the sarcoid activity but does not have the pulmonary adverse effects. Remicade is also good option. patient does not want take any medications that have to do with opiates therefore she is not willing to take any other cough syrup with codeine. The Tessalon Perles are only partially helpful. I did recommend she shredder picker Mucinex DM to see if that would help some. Will reassess and a few weeks. If the patient is no better will consider bronchoscopy further diagnostic interventions to assess the abnormal findings on the CT scan. We did talk about the likelihood of the progression of the sarcoidosis. However, need to consider infectious processes and or noninfectious inflammatory conditions. Malignancy is also in differential though less likely based on the fact that she has had this nodular densities to some degree in the past. 10/17/2022 the patient is overall doing b claire. Her cough is better and her breathing is better. She does stop the methotrexate and she did take the prednisone and also the Vantin. She also started the mycophenolate. However, after reading the side effects in the adverse issues potentially with that she decided to stop it altogether. Clinically the patient is feeling better and she opts to avoid any immunosuppressants at this time specially since she is going to need surgery in a couple months. I did agree with her as long she is doing okay. If her symptoms were to worsen we can also readdressed. I do believe that she was having a reaction to the methotrexate at the end. A or if anything indeed a could have been an infectious process. Do a way to know for sure is to repeat the CT scan in several months after her surgery in order to see if there is any progression of the airspace disease and nodular densities. If indeed she becomes symptomatic we can address that earlier. But right now will try to minimize her immune suppression in view of her other ongoing issues. Clinically patient is doing better. She is using respiratory therapy. 02/19/2023 the patient is here for a pulm onary follow-up visit. The patient's breathing seems to be better overall. She stop the methotrexate and has been off the prednisone. She also completed the antibiotics. The patient has been noticing lower extremity edema which is new for her. Moderate in the mouth. The patient did have a Doppler ultrasound the ruled out DVT. 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 She was being followed by Cardiology program at [facility] specially with when she was diagnosed with cardiac sarcoidosis. The patient has not had an echo in more than a year. Will go ahead and start her on diuretics because appears to be volume overloaded will request blood work and also request an echocardiogram. The patient needs to be stab which with a new computer technology trainer at this time. Hold off any treatments for sarcoid at this time. Although depending on the results we can talk about potential therapies. She tried immunomodulators without any significant improvement if anything worsening symptoms. I do believe that if she has any evidence of active sarcoidosis we can consider Remicade as a very good option for her. 05/21/2023 [facility]. Overall she is feeling better. She continues on the Lasix 20 mg daily. Although she has noticed some increased lower extremity swelling since we last spoke. Should go ahead increase it to 2 tablets for the next few days and then go back down to 20 mg daily. She did have an echocardiogram demonstrating significant asymmetric hypertrophy of the left ventricle. She will be following up with Cardiology soon. She is also going to have a pacemaker check as well. We did review her blood work which is reassuring. The inflammatory markers have subsided significantly. At this point the patient does not need any therapy for the sarcoid as appears to be dormant. She continues use respiratory therapy as needed. Recently she did have a upper respiratory illness and she was able to clear without any medications prescribed. Clinically the patient is doing better will follow-up in 4-6 months. 08/20/2023 the patient is here for a pul onary follow-up visit. The patient continues to have difficulties. Complaining of episodes of tachycardia palpitations. In addition to that she is having some lower extremity edema. She is responding well to the Lasix. She was supposed to see Cardiology but since she is already established at [facility] they would not see her here in her situation being so complex. We did again review her echocardiogram demonstrating the significant asymmetric hypertrophy concerning. The patient does have an explosive ordnance specialist at [facility] that prescribes her metoprolol. She is describing episodes of tachycardia and palpitations so therefore since she has taking a small dose I will go up on it to 25 mg. She should be followed up with him soon and if he thinks his reasonable he can continue prescribing the higher dose if he does not then he can bring it down to the previous dose. The patient will have blood work as well in the meantime to make sure that she can not tolerate the additional diuresis. From a pulmonary standpoint she continues to do fairly well though still complaining of some shortness of breath [id number] severity. Her respiratory exam is clear. She is still waiting to have knee surgery and now having issues with surgeries that she is going to further require. Therefore rather not place her on any immunosuppressant therapy for the purpose of postoperative healing. No evidence of any active sarcoid at this time. [facility] Medical History (Updated 05/21/23 @ 10:17 by Naldo Salguero MD) Limb swelling Pneumonia Pulmonary nodules Cardiomyopathy NSTEMI (non-ST elevated myocardial infarction) JES (obstructive sleep apnea) Asthma Sarcoid Family History Other HTN (hypertension) Social History Patient Tobacco Use Status: Never used Tobacco Review of Systems Const Denies fatigue, Denies headache(s) and Denies night sweats ENT Denies change in voice, Denies headache(s) and Denies lip swelling Card Denies chest pain, Reports leg edema, Denies dyspnea and Denies dyspnea on exertion Resp Denies chest congestion, Reports cough, Denies excessive phlegm production, Denies dyspnea and Denies dyspnea on exertion GI Denies abdominal pain Musc Denies no additional complaints and Denies tingling Neuro Denies Neuro-related abnormal movements, Denies headache(s) and Denies tingling Psych Denies no additional complaints Endo Denies fatigue Gucci/Lymph Denies easy bleeding and Denies lymphadenopathy Aller/Immun Denies lip swelling Physical Exam Vital Signs: Last Vital Signs Pulse 67 08/20/23 09:55 Pulse Ox 100 08/20/23 09:55 Oxygen Delivery Method Room Air 08/20/23 09:55 BMI result Body Mass Index 32.0 Const General: alert HEENT Head: Yes normocephalic Neck Neck: Yes normal visual inspection, Yes full ROM and Yes no lymphadenopathy Chest Chest palpation & inspection: normal inspection of the chest Resp Effort & Inspection: normal respiratory effort Auscultation: diminished lung sounds Cardio Rate: regular rate Rhythm: regular rhythm Heart sounds: S1 normal heart sound present, S2 normal heart sound present and Murmur heart sound present GI Palpation (GI): Soft to palpation and nontender Auscultation: normal bowel sounds Skin General skin exam: rashes and/or lesions noted Extrem General: Yes edema Assessment & Plan Assessment & Plan (1) Sarcoid: Code(s): D86.9 - Sarcoidosis, unspecified (2) Asthma: Code(s): J45.909 - Unspecified asthma, uncomplicated Qualifiers: Asthma complication type: uncomplicated Asthma persistence: persistent Asthma severity: moderate Qualified Code(s): J45.40 - Moderate persistent asthma, uncomplicated (3) JES (obstructive sleep apnea): Comment: Not compliant with CPAP at this time Code(s): G47.33 - Obstructive sleep apnea (adult) (pediatric) (4) Cardiomyopathy: Code(s): I42.9 - Cardiomyopathy, unspecified Qualifiers: Cardiomyopathy type: unspecified Qualified Code(s): I42.9 - Cardiomyopa thy, unspecified (5) Pulmonary nodules: Code(s): R91.8 - Other nonspecific abnormal finding of lung field Plan REC: Cardiology referral pending at [facility] Increase TOPROL 12.5 TO 25mg daily continue diuresis as tolerated Bloodwork consider remicade, holding for now as the sarcoid appears to be dormant continue Breo continue singulair Continue Benzonates as needed ABIGAIL as needed follow-up with Dermatology in addition to ophthalmology F/U 3-4 months Orders: Orders Complete Blood Count Auto Diff Today D86.9 - Sarcoidosis, unspecified, M79.89 - Other specified soft tissue disorders Basic Metabolic Panel Today D86.9 - Sarcoidosis, unspecified, M79.89 - Other specified soft tissue disorders Angiotensin Converting Enzyme Today D86.9 - Sarcoidosis, unspecified, M79.89 - Other specified soft tissue disorders Erythrocyte Sedimentation Rate Today D86.9 - Sarcoidosis, unspecified, M79.89 - Other specified soft tissue disorders Liver Panel Today D86.9 - Sarcoidosis, unspecified, M79.89 - Other specified soft tissue disorders TSH reflex Free T4 Today D86.9 - Sarcoidosis, unspecified, M79.89 - Other specified soft tissue disorders Referrals Cardiology Referral D86.9 - Sarcoidosis, unspecified, I42.9 - Cardiomyopathy, unspecified Medications: New metoprolol succinate ER 25 mg PO DAILY 30 days 30 tabs 1RF furosemide (Lasix) 40 mg (2 x 20 mg) PO DAILY 30 days 60 tabs 2RF Refilled furosemide (Lasix) 40 mg (2 x 20 mg) PO DAILY 30 tabs 3RF Coding Level of Care Code Est Pt Level 4 (20035) Diagnoses Sarcoid D86.9 Moderate persistent asthma without complication J45.40 Asthma complication type: uncomplicated Asthma persistence: persistent Asthma severity: moderate JES (obstructive sleep apnea) G47.33 Cardiomyopathy, unspecified type I42.9 Cardiomyopathy type: unspecified Pulmonary nodules R91.8 Time Spent (min) 17
== END 2023-08-20 10:17 | disposition home or self-care (01) ==
PROVIDERS: PCP Internal Medicine Endocrinology, Diabetes & Metabolism; Visit Provider Hospitalist
DX: D86.9 Sarcoidosis, unspecified (principal); J45.40 Moderate persistent asthma, uncomplicated; G47.33 Obstructive sleep apnea (adult) (pediatric); I42.9 Cardiomyopathy, unspecified; R91.8 Other nonspecific abnormal finding of lung field
CPT/HCPCS: 99214

== ENCOUNTER 2023-11-26 09:57 | Outpatient (AMB) | payer MEDICARE, OTHER, SELFPAY ==
[2023-11-26 10:04] VITALS: PULSE 71; O2SAT 97; BMI 32.7
--- NOTE | 2023-11-26 10:04 | A.OFFVIS_ITS ---
Vital Signs 11/26/23 10:04 Height 4 ft 9 in Weight 151 lb BMI 32.7 Pulse 71 Pulse Source Pulse Oximeter Pulse Oximetry (%) 97 Oxygen Delivery Method Room Air Intake Visit Reasons: COPD Heating Element Repairer Required: No Allergies No Known Allergies [No Known Allergies*] Allergy (Verified 11/26/23 10:07) HPI Comments Details: The patient is a 68-year-old woman with a known history of sarcoid and obstructive sleep apnea. During the last visit the patient was having some chest discomfort. Her EKG was abnormal and her cardiac enzymes were elevated. She was admitted to the hospital in transfer to [facility]. There, she did have a cardiac catheterization demonstrated no significant CAD which is reassuring. Ultimately, underwent an MRI of the heart demonstrating no sig nificant infiltrative cardiac disease to suggest cardiac sarcoid. Also, in the past she did have a cardiac PET that was negative for any cardiac sarcoid. 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 Current the patient has been feeling better. Her shortness of breath has improved. no evidence of active cardiac sarcoid at this time. will recheck her Champ level in the next few weeks and have to Champ level is elevated we will talk about repeating her cardiac PET scan. 10/17/2022 the patient is overall doing better. Her cough is better and her breathing is better. She does stop the methotrexate and she did take the prednisone and also the Vantin. She also started the mycophenolate. However, after reading the side effects in the adverse issues potentially with that she decided to stop it altogether. Clinically the patient is feeling better and she opts to avoid any immunosuppressants at this time specially since she is going to need surgery in a couple months. I did agree with her as long she is doing okay. If her symptoms were to worsen we can also readdressed. I do believe that she was having a reaction to the methotrexate at the end. A or if anything indeed a could have been an infectious process. Do a way to know for sure is to repeat the CT scan in several months after her surgery in order to see if there is any progression of the airspace disease and nodular densities. If indeed she becomes symptomatic we can address that earlier. But right now will try to minimize her immune suppression in view of her other ongoing issues. Clinically patient is doing better. She is using respiratory therapy. 02/19/2023 the patient is here for a pulmonary follow-up visit. The patient's breathing seems to be better overall. She stop the methotrexate and has been off the prednisone. She also completed the antibiotics. The patient has been noticing lower extremity edema which is new for her. Moderate in the mouth. The patient did have a Doppler ultrasound the ruled out DVT. She no longer has a marketing technology specialist. She was being followed by Cardiology program at [facility] specially with when she was diagnosed with cardiac sarcoidosis. The patient has not had an echo in more than a year. Will go ahead and start her on diuretics because appears to be volume overloaded will request blood work and also request an echocardiogram. The patient needs to be stab which with a new marketing technology specialist at this time. Hold off any treatments for sarcoid at this time. Although depending on the results we can talk about potential therapies. She tried immunomodulators without any significant improvement if anything worsening symptoms. I do believe that if she has any evidence of active sarcoidosis we can consider Remicade as a very good option for her. 05/21/2023 the patient is here for a pulmonary follow-up visit. Overall she is feeling better. She continues on the Lasix 20 mg daily. Although she has noticed some increased lower extremity swelling since we last spoke. Should go ahead increase it to 2 tablets for the next few days and then go back down to 20 mg daily. She did have an echocardiogram demonstrating significant asymmetric hypertrophy of the left ventricle. She will be following up with Cardiology soon. She is also going to have a pacemaker check as well. We did review her blood work which is reassuring. The inflammatory markers have subsided significantly. At this point the patient does not need any therapy for the sarcoid as appears to be dormant. She continues use respiratory therapy as needed. Recently she did have a upper respiratory illness and she was able to clear without any medications prescribed. Clinically the patient is doing better will follow-up in 4-6 months. 08/20/2023 the patient is here for a pulmonary follow-up visit. The patient continues to have difficulties. Complaining of episodes of tachycardia palpitations. In addition to that she is having some lower extremity edema. She is responding well to the Lasix. She was supposed to see Cardiology but since she is already established at [facility] they would not see her here in her situation being so complex. We did again review her echocardiogram demonstrating the significant asymmetric hypertrophy concerning. The patient does have an diamond sorter at [facility] that prescribes her metoprolol. She is describing episodes of tachycardia and palpitations so therefore since she has taking a small dose I will go up on it to 25 mg. She should be followed up with him soon and if he thinks his reasonable he can continue prescribing the higher dose if he does not then he can bring it down to the previous dose. The patient will have blood work as well in the meantime to make sure that she can not tolerate the additional diuresis. From a pulmonary standpoint she continues to do fairly well though still complaining of some shortness of breath [id number] severity. Her respiratory exam is clear. She is still waiting to have knee surgery and now having issues with surgeries that she is going to further require. Therefore rather not place her on any immunosuppressant therapy for the purpose of postoperative healing. No evidence of any active sarcoid at this time. 11/26/2023 the patient is here for a pulmonary follow-up visit. Patient is concerned that she is developing worsening she did finally see Cardiology at [facility]. She is scheduled to undergo an MRI of the heart to assess for any cardiac sarcoid. She was told to stop the Lasix. She stopped it after 3 days she noticed significant swelling of her lower extremity and she became very concerned. She started noticing some decrease appetite and early satiety. The patient did restart taking the Lasix. I did recommend she can talk to her marketing technology specialist regarding now. Once she gets her MRI of the heart I will go ahead and review to see if there is any active sarcoid. If the patient does have active sarcoidosis then will have to see about starting immunomodulator therapy or biologic therapy. She has been on multiple medications in the past. I do believe that Remicade will be a better option for her moving forward if she has any activity. In the meantime she will take additional diuresis today. [facility] Medical History (Updated 05/21/23 @ 10:17 by Naldo Salguero MD) Limb swelling Pneumonia Pulmonary nodules Cardiomyopathy NSTEMI (non-ST elevated myocardial infarction) JES (obstructive sleep apnea) Asthma Sarcoid Family History Other HTN (hypertension) Social History Patient Tobacco Use Status: Never used Tobacco Review of Systems Const Denies fatigue, Denies headache(s) and Denies night sweats ENT Denies change in voice, Denies headache(s) and Denies lip swelling Card Denies chest pain, Reports leg edema, Denies dyspnea and Denies dyspnea on exertion Resp Denies chest congestion, Reports cough, Denies excessive phlegm production, Denies dyspnea and Denies dyspnea on exertion GI Denies abdominal pain Musc Denies no additional complaints and Denies tingling Neuro Denies Neuro-related abnormal movements, Denies headache(s) and Denies tingling Psych Denies no additional complaints Endo Denies fatigue Gucci/Lymph Denies easy bleeding and Denies lymphadenopathy Aller/Immun Denies lip swelling Physical Exam Vital Signs: Last Vital Signs Pulse 71 11/26/23 10:04 Pulse Ox 97 11/26/23 10:04 Oxygen Delivery Method Room Air 11/26/23 10:04 BMI result Body Mass Index 32.7 Const General: alert HEENT Head: Yes normocephalic Neck Neck: Yes normal visual inspection, Yes full ROM and Yes no lymphadenopathy Chest Chest palpation & inspection: normal inspection of the chest Resp Effort & Inspection: normal respiratory effort Auscultation: diminished lung sounds Cardio Rate: regular rate Rhythm: regular rhythm Heart sounds: S1 normal heart sound present, S2 normal heart sound present and Murmur heart sound present GI Palpation (GI): Soft to palpation and nontender Auscultation: normal bowel sounds Skin General skin exam: rashes and/or lesions noted Extrem General: Yes edema Assessment & Plan Assessment & Plan (1) Sarcoid: Code(s): D86.9 - Sarcoidosis, unspecified Category: Medical (2) Asthma: Code(s): J45.909 - Unspecified asthma, uncomplicated Category: Medical Qualifiers: Asthma complication type: uncomplicated Asthma persistence: persistent Asthma severity: moderate Qualified Code(s): J45.40 - Moderate persistent as thma, uncomplicated (3) JES (obstructive sleep apnea): Comment: Not compliant with CPAP at this time Code(s): G47.33 - Obstructive sleep apnea (adult) (pediatric) Category: Medical (4) Cardiomyopathy: Code(s): I42.9 - Cardiomyopathy, unspecified Category: Medical Qualifiers: Cardiomyopathy type: unspecified Qualified Code(s): I42.9 - Cardiomyopathy, unspecified (5) Pulmonary nodules: Code(s): R91.8 - Other nonspecific abnormal finding of lung field Category: Medical Plan REC: Awaiting Cardiac MRI at [facility] continue diuresis as tolerated consider remicade, if +active sarcoid activity continue Breo continue singulair Continue Benzonates as needed ABIGAIL as needed follow-up with Dermatology in addition to ophthalmology F/U 3-4 months Coding Level of Care Code Est Pt Level 4 (51336) Diagnoses Sarcoid D86.9 Moderate persistent asthma without complication J45.40 Asthma complication type: uncomplicated Asthma persistence: persistent Asthma severity: moderate JES (obstructive sleep apnea) G47.33 Cardiomyopathy, unspecified type I42.9 Cardiomyopathy type: unspecified Pulmonary nodules R91.8 Time Spent (min) 17
== END 2023-11-26 10:25 | disposition home or self-care (01) ==
PROVIDERS: PCP Internal Medicine Endocrinology, Diabetes & Metabolism; Visit Provider Hospitalist
DX: D86.9 Sarcoidosis, unspecified (principal); J45.40 Moderate persistent asthma, uncomplicated; G47.33 Obstructive sleep apnea (adult) (pediatric); I42.9 Cardiomyopathy, unspecified; R91.8 Other nonspecific abnormal finding of lung field
CPT/HCPCS: 99214

== ENCOUNTER → 2023-11-26 09:57 | Outpatient (BNVA) | payer MEDICARE, OTHER, SELFPAY | PROVIDERS: PCP Internal Medicine Endocrinology, Diabetes & Metabolism; Visit Provider Hospitalist | DX: J45.40 Moderate persistent asthma, uncomplicated (principal); D86.9 Sarcoidosis, unspecified; G47.33 Obstructive sleep apnea (adult) (pediatric); I42.9 Cardiomyopathy, unspecified; R91.8 Other nonspecific abnormal finding of lung field | CPT/HCPCS: 99212 ==

== ENCOUNTER 2024-03-12 08:51 | Outpatient (AMB) | payer MEDICARE, OTHER, SELFPAY ==
[2024-03-12 08:59] VITALS: PULSE 60; O2SAT 98; BMI 30.9
--- NOTE | 2024-03-12 08:59 | MHC.OFFVIS ---
Vital Signs 03/12/24 08:59 Height 4 ft 10 in Weight 147 lb 11.355 oz BMI 30.9 Pulse 60 Pulse Source Pulse Oximeter Pulse Oximetry (%) 98 Oxygen Delivery Method Room Air Intake Visit Reasons: COPD Sleeping Car Service Attendant Required: No Allergies No Known Allergies [No Known Allergies*] Allergy (Verified 03/12/24 09:00) HPI Comments Details: The patient is a 69-year-old woman with a known history of sarcoid and obstructive sleep apnea. During the last visit the patient was having some chest discomfort. Her EKG was abnormal and her cardiac enzymes were elevated. She was admitted to the hospital in transfer to [facility]. There, she did have a cardiac catheterization demonstrated no significant CAD which is reassuring. Ultimately, underwent an MRI of the heart demonstrating no significant infiltrative cardiac disease to suggest cardiac sarcoid. Also, in the past she did have a cardiac PET that was negative for any cardiac sarcoid. 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 Current the patient has been feeling better. Her shortness of breath has improved. no evidence of active cardiac sarcoid at this time. will recheck her Champ level in the next few weeks and have to Champ level is elevated we will talk about repeating her cardiac PET scan. 10/17/2022 the patient is overall doing better. Her cough is better and her breathing is better. She does stop the methotrexate and she did take the prednisone and also the Vantin. She also started the mycophenolate. However, after reading the side effects in the adverse issues potentially with that she decided to stop it altogether. Clinically the patient is feeling better and she opts to avoid any immunosuppressants at this time specially since she is going to need surgery in a couple months. I did agree with her as long she is doing okay. If her symptoms were to worsen we can also readdressed. I do believe that she was having a reaction to the methotrexate at the end. A or if anything indeed a could have been an infectious process. Do a way to know for sure is to repeat the CT scan in several months after her surgery in order to see if there is any progression of the airspace disease and nodular densities. If indeed she becomes symptomatic we can address that earlier. But right now will try to minimize her immune suppression in view of her other ongoing issues. Clinically patient is doing better. She is using respiratory therapy. 02/19/2023 the patient is here for a pulmonary follow-up visit. The patient's breathing seems to be better overall. She stop the methotrexate and has been off the prednisone. She also completed the antibiotics. The patient has been noticing lower extremity edema which is new for her. Moderate in the mouth. The patient did have a Doppler ultrasound the ruled out DVT. She no longer has a checkering machine adjuster. She was being followed by Cardiology program at [facility] specially with when she was diagnosed with cardiac sarcoidosis. The patient has not had an echo in more than a year. Will go ahead and start her on diuretics because appears to be volume overloaded will request blood work and also request an echocardiogram. The patient needs to be stab which with a new checkering machine adjuster at this time. Hold off any treatments for sarcoid at this time. Although depending on the results we can talk about potential therapies. She tried immunomodulators without any significant improvement if anything worsening symptoms. I do believe that if she has any evidence of active sarcoidosis we can consider Remicade as a very good option for her. 05/21/2023 the patient is here for a pulmonary follow-up visit. Overall she is feeling better. She continues on the Lasix 20 mg daily. Although she has noticed some increased lower extremity swelling since we last spoke. Should go ahead increase it to 2 tablets for the next few days and then go back down to 20 mg daily. She did have an echocardiogram demonstrating significant asymmetric hypertrophy of the left ventricle. She will be following up with Cardiology soon. She is also going to have a pacemaker check as well. We did review her blood work which is reassuring. The inflammatory markers have subsided significantly. At this point the patient does not need any therapy for the sarcoid as appears to be dormant. She continues use respiratory therapy as needed. Recently she did have a upper respiratory illness and she was able to clear without any medications prescribed. Clinically the patient is doing better will follow-up in 4-6 months. 08/20/2023 the patient is here for a pulmonary follow-up visit. The patient continues to have difficulties. Complaining of episodes of tachycardia palpitations. In addition to that she is having some lower extremity edema. She is responding well to the Lasix. She was supposed to see Cardiology but since she is already established at [facility] they would not see her here in her situation being so complex. We did again review her echocardiogram demonstrating the significant asymmetric hypertrophy concerning. The patient does have an support services specialist at [facility] that prescribes her metoprolol. She is describing episodes of tachycardia and palpitations so therefore since she has taking a small dose I will go up on it to 25 mg. She should be followed up with him soon and if he thinks his reasonable he can continue prescribing the higher dose if he does not then he can bring it down to the previous dose. The patient will have blood work as well in the meantime to make sure that she can not tolerate the additional diuresis. From a pulmonary standpoint she continues to do fairly well though still complaining of some shortness of breath [id number] severity. Her respiratory exam is clear. She is still waiting to have knee surgery and now having issues with surgeries that she is going to further require. Therefore rather not place her on any immunosuppressant therapy for the purpose of postoperative healing. No evidence of any active sarcoid at this time. 11/26/2023 the patient is here for a pulmonary follow-up visit. Patient is concerned that she is developing worsening she did finally see Cardiology at [facility]. She is scheduled to undergo an MRI of the heart to assess for any cardiac sarcoid. She was told to stop the Lasix. She stopped it after 3 days she noticed significant swelling of her lower extremity and she became very concerned. She started noticing some decrease appetite and early satiety. The patient did restart taking the Lasix. I did recommend she can talk to her checkering machine adjuster regarding now. Once she gets her MRI of the heart I will go ahead and review to see if there is any active sarcoid. If the patient does have active sarcoidosis then will have to see about starting immunomodulator therapy or biologic therapy. She has been on multiple medications in the past. I do believe that Remicade will be a better option for her moving forward if she has any activity. In the meantime she will take additional diuresis today. 03/12/2024 the patient is here for a pulmonary follow-up visit. Overall the patient has been doing fair. She did have a cardiac MRI. No evidence of any cardiac sarcoid evident on the MRI which is reassuring. Although she does have a left ventricular outflow tract. Because of the significant she was referred to [facility] for further evaluation likely with Cardiothoracic surgery. From a sarcoid standpoint the patient appears to be in remission no evidence of any active disease. The patient does have daytime drowsiness. She does have an invalid [place] score of 11/24. She had 1 episode where she woke up short of breath and she checked her oxygen level was when was in the low 80s. She became concerned. The oxygen did come back up. Will go ahead and request a sleep study this time to further address the question sleep apnea. In the meantime no evidence of any active sarcoid so no need for any systemic therapies at this time. [facility] Medical History (Updated 03/12/24 @ 10:58 by Naldo Salguero MD) Limb swelling Pneumonia Pulmonary nodules Cardiomyopathy NSTEMI (non-ST elevated myocardial infarction) JES (obstructive sleep apnea) Asthma Sarcoid Family History Other HTN (hypertension) Social History Patient Tobacco Use Status: Never used Tobacco Review of Systems Const Reports daytime sleepiness, Reports fatigue, Denies headache(s) and Denies night sweats ENT Denies change in voice, Denies headache(s) and Denies lip swelling Card Denies chest pain, Reports leg edema, Denies dyspnea, Reports dyspnea on exertion and Reports orthopnea Resp Denies chest congestion, Reports cough, Denies excessive phlegm production, Denies dyspnea and Reports dyspnea on exertion GI Denies abdominal pain Musc Denies no additional complaints and Denies tingling Neuro Denies Neuro-related abnormal movements, Denies headache(s) and Denies tingling Psych Denies no additional complaints Endo Reports fatigue Gucci/Lymph Denies easy bleeding and Denies lymphadenopathy Aller/Immun Denies lip swelling Physical Exam Vital Signs: Last Vital Signs Pulse 60 03/12/24 08:59 Pulse Ox 98 03/12/24 08:59 Oxygen Delivery Method Room Air 03/12/24 08:59 BMI result Body Mass Index 30.9 Const General: alert HEENT Head: Yes normocephalic Neck Neck: Yes normal visual inspection, Yes full ROM and Yes no lymphadenopathy Chest Chest palpation & inspection: normal inspection of the chest Resp Effort & Inspection: normal respiratory effort Auscultation: diminished lung sounds Cardio Rate: regular rate Rhythm: regular rhythm Heart sounds: S1 normal heart sound present, S2 normal heart sound present and Murmur heart sound present GI Palpation (GI): Soft to palpation and nontender Auscultation: normal bowel sounds Skin General skin exam: rashes and/or lesions noted Extrem General: Yes edema Assessment & Plan Assessment & Plan (1) Sarcoid: Code(s): D86.9 - Sarcoidosis, unspecified Category: Medical (2) Asthma: Code(s): J45.909 - Unspecified asthma, uncomplicated Category: Medical Qualifiers: Asthma complication type: uncomplicated Asthma persistence: persistent Asthma severity: moderate Qualified Code(s): J45.40 - Moderate persistent asthma, uncomplicated (3) JES (obstructive sleep apnea): Code(s): G47.33 - Obstructive sleep apnea (adult) (pediatric) Category: Medical (4) Cardiomyopathy: Code(s): I42.9 - Cardiomyopathy, unspecified Category: Medical Qualifiers: Cardiomyopathy type: unspecified Qualified Code(s): I42.9 - Cardiomyopathy, unspecified (5) Pulmonary nodules: Code(s): R91.8 - Other nonspecific abnormal finding of lung field Category: Medical Plan REC: Home [facility] clinic appointment Cardiac MRI at [facility] - no sarcoid +LVOT continue diuresis as tolerated no remicade, only if +active sarcoid activity continue Breo continue singulair Continue Benzonates as needed ABIGAIL as needed follow-up with Dermatology in addition to ophthalmology F/U 3-4 months Orders: Orders RT home sleep study Today G47.33 - Obstructive sleep apnea (adult) (pediatric) Coding Level of Care Code Est Pt Level 4 (48919) Complex EM visit Add On G2211 Diagnoses Sarcoid D86.9 Moderate persistent asthma without complication J45.40 Asthma complication type: uncomplicated Asthma persistence: persistent Asthma severity: moderate JES (obstructive sleep apnea) G47.33 Cardiomyopathy, unspecified type I42.9 Cardiomyopathy type: unspecified Pulmonary nodules R91.8 Time Spent (min) 18
== END 2024-03-12 09:17 | disposition home or self-care (01) ==
PROVIDERS: PCP Internal Medicine Endocrinology, Diabetes & Metabolism; Visit Provider Hospitalist
DX: D86.9 Sarcoidosis, unspecified (principal); J45.40 Moderate persistent asthma, uncomplicated; G47.33 Obstructive sleep apnea (adult) (pediatric); I42.9 Cardiomyopathy, unspecified; R91.8 Other nonspecific abnormal finding of lung field
CPT/HCPCS: 99214; G2211

== ENCOUNTER → 2024-03-12 08:51 | Outpatient (BNVA) | payer MEDICARE, OTHER, SELFPAY | PROVIDERS: PCP Internal Medicine Endocrinology, Diabetes & Metabolism; Visit Provider Hospitalist | DX: J44.9 Chronic obstructive pulmonary disease, unspecified (principal); J45.40 Moderate persistent asthma, uncomplicated; I42.9 Cardiomyopathy, unspecified; G47.33 Obstructive sleep apnea (adult) (pediatric); D86.9 Sarcoidosis, unspecified; R91.8 Other nonspecific abnormal finding of lung field | CPT/HCPCS: 99212 ==

== ENCOUNTER → 2024-04-28 10:49 | Outpatient (REF) | payer MEDICARE, OTHER, SELFPAY | LOC: HO.SL 10:49 | PROVIDERS: PCP Internal Medicine Endocrinology, Diabetes & Metabolism; Visit Provider Hospitalist | DX: G47.33 Obstructive sleep apnea (adult) (pediatric) (principal) | CPT/HCPCS: 95806 ==

== ENCOUNTER 2024-06-17 09:36 | Outpatient (AMB) | payer MEDICARE, OTHER, SELFPAY ==
[2024-06-17 09:40] VITALS: BP 134/70; PULSE 78; O2SAT 97; BMI 32.5
--- NOTE | 2024-06-17 09:40 | MHC.OFFVIS ---
Vital Signs 06/17/24 09:40 Height 4 ft 10 in Weight 155 lb 6.814 oz BMI 32.5 BP 134/70 Blood Pressure Location Rt brachial Position Sitting Pulse 78 Pulse Source Pulse Oximeter Pulse Oximetry (%) 97 Oxygen Delivery Method Room Air Intake Visit Reasons: COPD Oncology Research Rn Required: No Cake Inspector: Cake Inspector offered & declined Accompanied by: Self / Same As Patient Allergies No Known Allergies [No Known Allergies*] Allergy (Verified 06/17/24 09:45) Medication List - Last Reconciled 06/17/24 by Suzanne Alexandra LPN acetaminophen (Tylenol) 325 mg PO QID PRN albuterol sulfate 90 mcg/actuation 2 puffs inhalation Q6H PRN aspirin 81 mg PO DAILY atorvastatin 10 mg PO DAILY benzonatate 200 mg PO BID PRN 30 days cefpodoxime 200 mg PO BID cholecalciferol (vitamin D3) 25 mcg PO DAILY famotidine (Pepcid) 20 mg PO DAILY fluticasone furoate-vilanterol 100-25 mcg/dose (Breo Ellipta) 1 inh inhalation Q24H folic acid 1 mg PO DAILY furosemide (Lasix) 40 mg (2 x 20 mg) PO DAILY furosemide (Lasix) 40 mg (2 x 20 mg) PO DAILY 30 days loratadine (Claritin) 10 mg PO DAILY 30 days metoprolol succinate ER 50 mg PO BID montelukast 10 mg PO DAILY oxybutynin chloride ER 10 mg PO DAILY HPI Comments Details: The patient is a 69-year-old woman with a known history of sarcoid and obstructive sleep apnea. During the last visit the patient was having some chest discomfort. Her EKG was abnormal and her cardiac enzymes were elevated. She was admitted to the hospital in transfer to [facility]. There, she did have a cardiac catheterization demonstrated no significant CAD which is reassuring. Ultimately, underwent an MRI of the heart demonstrating no significant infiltrative cardiac disease to suggest cardiac sarcoid. Also, in the past she did have a cardiac PET that was negative for any cardiac sarcoid. 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 Current the patient has been feeling better. Her shortness of breath has improved. no evidence of active cardiac sarcoid at this time. will recheck her Champ level in the next few weeks and have to Champ level is elevated we will talk about repeating her cardiac PET scan. 10/17/2022 the patient is overall doing better. Her cough is better and her breathing is better. She does stop the methotrexate and she did take the prednisone and also the Vantin. She also started the mycophenolate. However, after reading the side effects in the adverse issues potentially with that she decided to stop it altogether. Clinically the patient is feeling better and she opts to avoid any immunosuppressants at this time specially since she is going to need surgery in a couple months. I did agree with her as long she is doing okay. If her symptoms were to worsen we can also readdressed. I do believe that she was having a reaction to the methotrexate at the end. A or if anything indeed a could have been an infectious process. Do a way to know for sure is to repeat the CT scan in several months after her surgery in order to see if there is any progression of the airspace disease and nodular densities. If indeed she becomes symptomatic we can address that earlier. But right now will try to minimize her immune suppression in view of her other ongoing issues. Clinically patient is doing better. She is using respiratory therapy. 02/19/2023 the patient is here for a pulmonary follow-up visit. The patient's breathing seems to be better overall. She stop the methotrexate and has been off the prednisone. She also completed the antibiotics. The patient has been noticing lower extremity edema which is new for her. Moderate in the mouth. The patient did have a Doppler ultrasound the ruled out DVT. She no longer has a clinical coder. She was being followed by Cardiology program at [facility] specially with when she was diagnosed with cardiac sarcoidosis. The patient has not had an echo in more than a year. Will go ahead and start her on diuretics because appears to be volume overloaded will request blood work and also request an echocardiogram. The patient needs to be stab which with a new clinical coder at this time. Hold off any treatments for sarcoid at this time. Although depending on the results we can talk about potential therapies. She tried immunomodulators without any significant improvement if anything worsening symptoms. I do believe that if she has any evidence of active sarcoidosis we can consider Remicade as a very good option for her. 05/21/2023 the patient is here for a pulmonary follow-up visit. Overall she is feeling better. She continues on the Lasix 20 mg daily. Although she has noticed some increased lower extremity swelling since we last spoke. Should go ahead increase it to 2 tablets for the next few days and then go back down to 20 mg daily. She did have an echocardiogram demonstrating significant asymmetric hypertrophy of the left ventricle. She will be following up with Cardiology soon. She is also going to have a pacemaker check as well. We did review her blood work which is reassuring. The inflammatory markers have subsided significantly. At this point the patient does not need any therapy for the sarcoid as appears to be dormant. She continues use respiratory therapy as needed. Recently she did have a upper respiratory illness and she was able to clear without any medications prescribed. Clinically the patient is doing better will follow-up in 4-6 months. 08/20/2023 the patient is here for a pulmonary follow-up visit. The patient continues to have difficulties. Complaining of episodes of tachycardia palpitations. In addition to that she is having some lower extremity edema. She is responding well to the Lasix. She was supposed to see Cardiology but since she is already established at [facility] they would not see her here in her situation being so complex. We did again review her echocardiogram demonstrating the significant asymmetric hypertrophy concerning. The patient does have an outdoor studies director at [facility] that prescribes her metoprolol. She is describing episodes of tachycardia and palpitations so therefore since she has taking a small dose I will go up on it to 25 mg. She should be followed up with him soon and if he thinks his reasonable he can continue prescribing the higher dose if he does not then he can bring it down to the previous dose. The patient will have blood work as well in the meantime to make sure that she can not tolerate the additional diuresis. From a pulmonary standpoint she continues to do fairly well though still complaining of some shortness of breath [id number] severity. Her respiratory exam is clear. She is still waiting to have knee surgery and now having issues with surgeries that she is going to further require. Therefore rather not place her on any immunosuppressant therapy for the purpose of postoperative healing. No evidence of any active sarcoid at this time. 11/26/2023 the patient is here for a pulmonary follow-up visit. Patient is concerned that she is developing worsening she did finally see Cardiology at [facility]. She is scheduled to undergo an MRI of the heart to assess for any cardiac sarcoid. She was told to stop the Lasix. She stopped it after 3 days she noticed significant swelling of her lower extremity and she became very concerned. She started noticing some decrease appetite and early satiety. The patient did restart taking the Lasix. I did recommend she can talk to her clinical coder regarding now. Once she gets her MRI of the heart I will go ahead and review to see if there is any active sarcoid. If the patient does have active sarcoidosis then will have to see about starting immunomodulator therapy or biologic therapy. She has been on multiple medications in the past. I do believe that Remicade will be a better option for her moving forward if she has any activity. In the meantime she will take additional diuresis today. 03/12/2024 the patient is here for a pulmonary follow-up visit. Overall the patient has been doing fair. She did have a cardiac MRI. No evidence of any cardiac sarcoid evident on the MRI which is reassuring. Although she does have a left ventricular outflow tract. Because of the significant she was referred to [facility] for further evaluation likely with Cardiothoracic surgery. From a sarcoid standpoint the patient appears to be in remission no evidence of any active disease. The patient does have daytime drowsiness. She does have an invalid [place] score of 11/24. She had 1 episode where she woke up short of breath and she checked her oxygen level was when was in the low 80s. She became concerned. The oxygen did come back up. Will go ahead and request a sleep study this time to further address the question sleep apnea. In the meantime no evidence of any active sarcoid so no need for any systemic therapies at this time. 06/17/2024 the patient is here for a pulmonary follow-up visit. She did have her evaluation [facility]. She was not very impressed. She is not clear exactly what took place. She needs to follow-up with her local clinical coder to make signs of her visit and to review the impression from [facility]. For now the patient did have a repeat home sleep study. She does have moderate to severe sleep apnea with significant hypoxia. She needs to use her APAP. She did start using it. Her AHI using her machine is down 2 episodes per hour. Her pressure is adequate and her supplies are good. She will continue to use her CPAP at this time. In the meantime she is still having dyspnea on exertion. [id number] severity. It is not clear of her sarcoidosis is active. Will go ahead and request additional blood work and also a CT scan to address her pulmonary nodules into see this any progression of her interstitial lung disease to suggest sarcoid activity. If indeed she has active sarcoid she needs to start treatment. She also needs follow-up Cardiology to figure out what the next step is regarding the hypertrophic cardiac changes. [facility] Medical History (Updated 03/12/24 @ 10:58 by Naldo Salguero MD) Limb swelling Pneumonia Pulmonary nodules Cardiomyopathy NSTEMI (non-ST elevated myocardial infarction) JES (obstructive sleep apnea) Asthma Sarcoid Family History Other HTN (hypertension) Social History Patient Tobacco Use Status: Never used Tobacco Review of Systems Const Reports daytime sleepiness, Reports fatigue, Denies headache(s) and Denies night sweats ENT Denies change in voice, Denies headache(s) and Denies lip swelling Card Denies chest pain, Reports leg edema, Denies dyspnea, Reports dyspnea on exertion and Reports orthopnea Resp Denies chest congestion, Reports cough, Denies excessive phlegm production, Denies dyspnea and Reports dyspnea on exertion GI Denies abdominal pain Musc Denies no additional complaints and Denies tingling Neuro Denies Neuro-related abnormal movements, Denies headache(s) and Denies tingling Psych Denies no additional complaints Endo Reports fatigue Gucci/Lymph Denies easy bleeding and Denies lymphadenopathy Aller/Immun Denies lip swelling Physical Exam Vital Signs: Last Vital Signs Pulse 78 06/17/24 09:40 BP 134/70 06/17/24 09:40 Pulse Ox 97 06/17/24 09:40 Oxygen Delivery Method Room Air 06/17/24 09:40 BMI result Body Mass Index 32.5 Const General: alert HEENT Head: Yes normocephalic Neck Neck: Yes normal visual inspection, Yes full ROM and Yes no lymphadenopathy Chest Chest palpation & inspection: normal inspection of the chest Resp Effort & Inspection: normal respiratory effort Auscultation: diminished lung sounds Cardio Rate: regular rate Rhythm: regular rhythm Heart sounds: S1 normal heart sound present, S2 normal heart sound present and Murmur heart sound present GI Palpation (GI): Soft to palpation and nontender Auscultation: normal bowel sounds Skin General skin exam: rashes and/or lesions noted Extrem General: Yes edema Office Procedures Flu Questionnaire Does the patient have a severe egg allergy?: No Does the patient have severe life threatening allergies?: No Does the patient have a fever or illness today?: No Has the patient ever had Guillain-[place] Syndrome?: No Has the patient ever had any past reaction to a flu shot?: No Immunizations Fluarix Triv [id number] (PF) 45 mcg (15 mcg x 3)/0.5 mL IM syringe Performing Provider: Naldo Salguero MD Performing Location: [facility] Administered by: Suzanne Alexandra LPN on 06/17/24 10:24 Dose Route Admin Location Dispensed Lot Number Expiration Date NDC Awning Erector 0.5 mL IM Left Deltoid 0.5 mL [id number] 01/19/25 [id number] [employer] VIS Given Date VIS Provided VIS Publication Date 06/17/24 Single Vaccine 21 Eligibility Eligibility Date Funding Source Not [facility] Eligible 06/17/24 Private Assessment & Plan Assessment & Plan (1) Sarcoid: Code(s): D86.9 - Sarcoidosis, unspecified Category: Medical (2) Asthma: Code(s): J45.909 - Unspecified asthma, uncomplicated Category: Medical Qualifiers: Asthma complication type: uncomplicated Asthma persistence: persistent Asthma severity: moderate Qualified Code(s): J45.40 - Moderate persistent asthma, uncomplicated (3) JES (obstructive sleep apnea): Code(s): G47.33 - Obstructive sleep apnea (adult) (pediatric) Category: Medical (4) Cardiomyopathy: Code(s): I42.9 - Cardiomyopathy, unspecified Category: Medical Qualifiers: Cardiomyopathy type: unspecified Qualified Code(s): I42.9 - Cardiomyopathy, unspecified (5) Pulmonary nodules: Code(s): R91.8 - Other nonspecific abnormal finding of lung field Category: Medical Plan REC: continue APAP Cardiac MRI at [facility] - no sarcoid +LVOT continue diuresis as tolerated no remicade, only if +active sarcoid activity continue Breo continue singulair Continue Benzonates as needed ABIGAIL as needed follow-up with Dermatology in addition to ophthalmology bloodwork CT chest F/U 3 months Orders: Orders Angiotensin Converting Enzyme Today I50.9 - Heart failure, unspecified, J18.9 - Pneumonia, unspecified organism, M79.89 - Other specified soft tissue disorders Complete Blood Count Auto Diff Today I50.9 - Heart failure, unspecified, J18.9 - Pneumonia, unspecified organism, M79.89 - Other specified soft tissue disorders Erythrocyte Sedimentation Rate Today I50.9 - Heart failure, unspecified, J18.9 - Pneumonia, unspecified organism, M79.89 - Other specified soft tissue disorders Cyclic Citrullinated Peptide Today R91.8 - Other nonspecific abnormal finding of lung field CT chest wo IV con Today R91.8 - Other nonspecific abnormal finding of lung field Influenza [id number] Immunization Today D86.9 - Sarcoidosis, unspecified, J45.40 - Moderate persistent asthma, uncomplicated PHUONG Reflex Titer and Pattern Today I50.9 - Heart failure, unspecified, J18.9 - Pneumonia, unspecified organism, M79.89 - Other specified soft tissue disorders Liver Panel Today I50.9 - Heart failure, unspecified, J18.9 - Pneumonia, unspecified organism, M79.89 - Other specified soft tissue disorders B Type Natriuretic Peptide Today I50.9 - Heart failure, unspecified, J18.9 - Pneumonia, unspecified organism, M79.89 - Other specified soft tissue disorders Sjogren's Antibodies Today I50.9 - Heart failure, unspecified, J18.9 - Pneumonia, unspecified organism, M79.89 - Other specified soft tissue disorders Basic Metabolic Panel Today I50.9 - Heart failure, unspecified, J18.9 - Pneumonia, unspecified organism, M79.89 - Other specified soft tissue disorders Coding Level of Care Code Est Pt Level 4 (77718) Complex EM visit Add On G2211 Diagnoses Sarcoid D86.9 Moderate persistent asthma without complication J45.40 Asthma complication type: uncomplicated Asthma persistence: persistent Asthma severity: moderate JES (obstructive sleep apnea) G47.33 Cardiomyopathy, unspecified type I42.9 Cardiomyopathy type: unspecified Pulmonary nodules R91.8 Time Spent (min) 18
== END 2024-06-17 10:11 | disposition home or self-care (01) ==
PROVIDERS: PCP Internal Medicine Endocrinology, Diabetes & Metabolism; Visit Provider Hospitalist
DX: D86.9 Sarcoidosis, unspecified (principal); J45.40 Moderate persistent asthma, uncomplicated; G47.33 Obstructive sleep apnea (adult) (pediatric); I42.9 Cardiomyopathy, unspecified; R91.8 Other nonspecific abnormal finding of lung field
CPT/HCPCS: 99214; G2211

== ENCOUNTER → 2024-06-17 09:36 | Outpatient (BNVA) | payer MEDICARE, OTHER, SELFPAY | PROVIDERS: PCP Internal Medicine Endocrinology, Diabetes & Metabolism; Visit Provider Hospitalist | DX: J45.40 Moderate persistent asthma, uncomplicated (principal); J18.9 Pneumonia, unspecified organism; R91.8 Other nonspecific abnormal finding of lung field; G47.33 Obstructive sleep apnea (adult) (pediatric); R09.02 Hypoxemia; D86.9 Sarcoidosis, unspecified; I42.9 Cardiomyopathy, unspecified; I50.9 Heart failure, unspecified; M79.89 Other specified soft tissue disorders; Z23 Encounter for immunization; Z99.89 Dependence on other enabling machines and devices | CPT/HCPCS: 90471; 90656; 99212 ==

== ENCOUNTER 2024-08-14 10:27 | Outpatient (REF) | payer MEDICARE, OTHER, SELFPAY ==
--- NOTE | ~2024-08-14 | CT_ITS ---
CLINICAL HISTORY: R91.8 - Other nonspecific abnormal finding of lung field CT chest without contrast Comparison: CT/REG/HI/SR - CT CHEST WO IV CON - 01/16/23 12:[address]/HI/SR - CT ANGIO CHEST PE PROTOCOL - 09/06/22 15:14 EST Findings: Chest CT from September 06, 2022 demonstrated of the dense area of consolidation involving the lateral aspect of the right upper lobe. This is improved on the study from January 16, 2023. On the current examination, there is only a small amount of residual linear density in this areas suggesting post infectious/postinflammatory scarring. No concerning mass lesion or pulmonary nodule is identified in that location. There is a 4 mm noncalcified pulmonary nodule within the right middle lobe, not appreciably changed compared to prior study. No new pulmonary nodules are identified. No new areas of consolidation. No pleural effusion or pneumothorax. Left-sided pacemaker with right atrial and right ventricular pacer leads. Mild to moderate dilation of the left ventricular chamber with calcification of the mitral valve. Small hiatal hernia. No free fluid or free air within the upper abdomen. No acute bony abnormality. IMPRESSION: 1. Likely residual scarring from prior infection or inflammation within the right upper lobe. No concerning infiltrate or pulmonary nodule identified at this time. This document has been electronically signed by: Pablo Salas MD on 08/15/2024 09:14:32
[2024-08-14 11:12] LABS: MANUAL DIFF FLAG NO
[2024-08-14 11:28] LABS: Basophils Percent Auto 0.5 % (0-2); Eosinophils Absolute Auto 0.4 X10*3/uL (0.0-0.4); Eosinophils Percent Auto 7.2 % (0-4); Hematocrit 37.4 % (37.0-47.0); Hemoglobin 12.1 g/dl (12.0-16.0); Imm Gran Abs Auto 0.01 X10*3/uL (0.00-0.03); Imm Gran Pct Auto 0.2 % (0.0-0.4); Lymphocytes Absolute Auto 1.6 X10*3/uL (1.2-4.9); Lymphocytes Percent Auto 27.2 % (20-40); Mean Corpuscular HGB Conc 32.4 g/dl (31.0-35.0); Mean Corpuscular Hemoglobin 27.6 pg (27.0-33.0); Mean Corpuscular Volume 85.4 fL (80.0-98.0); Mean Platelet Volume 10.1 fL (9.4-12.3); Monocytes Absolute Auto 0.4 X10*3/uL (0.1-1.2); Monocytes Percent Auto 7.4 % (2-11); Neutrophils Absolute Auto 3.3 x10*3/uL (2.0-8.3); Neutrophils Percent Auto 57.5 % (45-73); Platelet Count 209 X10*3/uL (160-400); Red Blood Count 4.38 X10*6/uL (4.20-5.50); Red Cell Distribution Width 13.7 % (11.0-16.0); White Blood Count 5.7 X10*3/uL (4.8-10.8)
[2024-08-14 11:34] LABS: Alanine Aminotransferase 19 U/L (0-31); Albumin Level 4.1 g/dL (3.5-5.0); Alkaline Phosphatase 48 U/L (39-117); Anion Gap 8 (12-20); Aspartate Amino Transferase 24 U/L (5-31); Bilirubin Direct 0.1 mg/dL (0.0-0.5); Bilirubin Total 0.3 mg/dL (0.0-1.0); Blood Urea Nitrogen 28 mg/dL (9-16); Calcium 9.3 mg/dL (8.4-10.2); Carbon Dioxide 26 mmol/L (22-29); Chloride 112 mmol/L (96-108); Estimated Glomerular Filt Rate > 60; Glucose Random 79 mg/dL (60-115); Potassium 4.1 mmol/L (3.3-5.1); Sodium 142 mmol/L (135-145); Total Protein 7.6 g/dL (6.5-8.0)
[2024-08-14 11:39] LABS: B Type Natriuretic Peptide 43 pg/mL (<100)
[2024-08-14 12:18] LABS: Erythrocyte Sedimentation Rate 17 MM/HR (0-20)
[2024-08-15 20:29] LABS: Antibody to SS-A Antigen <1.0 NEG AI (<1.0 NEG); Antibody to SS-B Antigen <1.0 NEG AI (<1.0 NEG)
== END 2024-08-14 10:28 | disposition home or self-care (01) ==
LOC: HO.CT 10:27
PROVIDERS: PCP Internal Medicine Endocrinology, Diabetes & Metabolism; Visit Provider Hospitalist
DX: R91.8 Other nonspecific abnormal finding of lung field (principal); I50.9 Heart failure, unspecified; M79.89 Other specified soft tissue disorders; J18.9 Pneumonia, unspecified organism
CPT/HCPCS: 36415; 71250; 80048; 80076; 82164; 83880; 85025; 85652; 86038; 86200; 86235

== ENCOUNTER → 2024-08-14 10:29 | Outpatient (BNV) | payer MEDICARE, OTHER, SELFPAY | PROVIDERS: PCP Internal Medicine Endocrinology, Diabetes & Metabolism; Visit Provider Radiology Diagnostic Radiology | DX: R91.8 Other nonspecific abnormal finding of lung field (principal) | CPT/HCPCS: 71250 ==

== ENCOUNTER 2024-09-22 10:49 | Outpatient (AMB) | payer MEDICARE, OTHER, SELFPAY ==
[2024-09-22 10:58] VITALS: BP 140/82; PULSE 60; O2SAT 98; BMI 31.8
--- NOTE | 2024-09-22 10:58 | A.OFFVIS_ITS ---
Vital Signs 09/22/24 10:58 Height 4 ft 10 in Weight 152 lb 1.903 oz BMI 31.8 BP 140/82 H Blood Pressure Location Rt brachial Position Sitting Pulse 60 Pulse Source Pulse Oximeter Pulse Oximetry (%) 98 Oxygen Delivery Method Room Air Intake Visit Reasons: copd Allergies No Known Allergies [No Known Allergies*] Allergy (Verified 09/22/24 11:01) HPI Comments Details: The patient is a 69-year-old woman with a known history of sarcoid and obstructive sleep apnea. During the last visit the patient was having some chest discomfort. Her EKG was abnormal and her cardiac enzymes were elevated. She was admitted to the hospital in transfer to [facility]. There, she did have a cardiac catheterization demonstrated no significant CAD which is reassuring. Ultimately, underwent an MRI of the heart demonstrating no significant infiltrative cardiac disease to suggest cardiac sarcoid. Also, in the past she did have a cardiac PET that was negative for any cardiac sarcoid. 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 Current the patient has been feeling better. Her shortness of breath has improved. no evidence of active cardiac sarcoid at this time. will recheck her Champ level in the next few weeks and have to Champ level is elevated we will talk about repeating her cardiac PET scan. 10/17/2022 the patient is overall doing better. Her cough is better and her breathing is better. She does stop the methotrexate and she did take the prednisone and also the Vantin. She also started the mycophenolate. However, after reading the side effects in the adverse issues potentially with that she decided to stop it altogether. Clinically the patient is feeling better and she opts to avoid any immunosuppressants at this time specially since she is going to need surgery in a couple months. I did agree with her as long she is doing okay. If her symptoms were to worsen we can also readdressed. I do believe that she was having a reaction to the methotrexate at the end. A or if anything indeed a could have been an infectious process. Do a way to know for sure is to repeat the CT scan in several months after her surgery in order to see if there is any progression of the airspace disease and nodular densities. If indeed she becomes symptomatic we can address that earlier. But right now will try to minimize her immune suppression in view of her other ongoing issues. Clinically patient is doing better. She is using respiratory therapy. 02/19/2023 the patient is here for a pulmonary follow-up visit. The patient's breathing seems to be better overall. She stop the methotrexate and has been off the prednisone. She also completed the antibiotics. The patient has been noticing lower extremity edema which is new for her. Moderate in the mouth. The patient did have a Doppler ultrasound the ruled out DVT. She no longer has a motor overhauler. She was being followed by Cardiology program at [facility] specially with when she was diagnosed with cardiac sarcoidosis. The patient has not had an echo in more than a year. Will go ahead and start her on diuretics because appears to be volume overloaded will request blood work and also request an echocardiogram. The patient needs to be stab which with a new motor overhauler at this time. Hold off any treatments for sarcoid at this time. Although depending on the results we can talk about potential therapies. She tried immunomodulators without any significant improvement if anything worsening symptoms. I do believe that if she has any evidence of active sarcoidosis we can consider Remicade as a very good option for her. 05/21/2023 the patient is here for a pulmonary follow-up visit. Overall she is feeling better. She continues on the Lasix 20 mg daily. Although she has noticed some increased lower extremity swelling since we last spoke. Should go ahead increase it to 2 tablets for the next few days and then go back down to 20 mg daily. She did have an echocardiogram demonstrating significant asymmetric hypertrophy of the left ventricle. She will be following up with Cardiology soon. She is also going to have a pacemaker check as well. We did review her blood work which is reassuring. The inflammatory markers have subsided significantly. At this point the patient does not need any therapy for the sarcoid as appears to be dormant. She continues use respiratory therapy as needed. Recently she did have a upper respiratory illness and she was able to clear without any medications prescribed. Clinically the patient is doing better will follow-up in 4-6 months. 08/20/2023 the patient is here for a pulmonary follow-up visit. The patient continues to have difficulties. Complaining of episodes of tachycardia palpitations. In addition to that she is having some lower extremity edema. She is responding well to the Lasix. She was supposed to see Cardiology but since she is already established at [facility] they would not see her here in her situation being so complex. We did again review her echocardiogram demonstrating the significant asymmetric hypertrophy concerning. The patient does have an dental service chief at [facility] that prescribes her metoprolol. She is describing episodes of tachycardia and palpitations so therefore since she has taking a small dose I will go up on it to 25 mg. She should be followed up with him soon and if he thinks his reasonable he can continue prescribing the higher dose if he does not then he can bring it down to the previous dose. The patient will have blood work as well in the meantime to make sure that she can not tolerate the additional diuresis. From a pulmonary standpoint she continues to do fairly well though still complaining of some shortness of breath [id number] severity. Her respiratory exam is clear. She is still waiting to have knee surgery and now having issues with surgeries that she is going to further require. Therefore rather not place her on any immunosuppressant therapy for the purpose of postoperative healing. No evidence of any active sarcoid at this time. 11/26/2023 the patient is here for a pulmonary follow-up visit. Patient is concerned that she is developing worsening she did finally see Cardiology at [facility]. She is scheduled to undergo an MRI of the heart to assess for any cardiac sarcoid. She was told to stop the Lasix. She stopped it after 3 days she noticed significant swelling of her lower extremity and she became very concerned. She started noticing some decrease appetite and early satiety. The patient did restart taking the Lasix. I did recommend she can talk to her motor overhauler regarding now. Once she gets her MRI of the heart I will go ahead and review to see if there is any active sarcoid. If the patient does have active sarcoidosis then will have to see about starting immunomodulator therapy or biologic therapy. She has been on multiple medications in the past. I do believe that Remicade will be a better option for her moving forward if she has any activity. In the meantime she will take additional diuresis today. 03/12/2024 the patient is here for a pulmonary follow-up visit. Overall the patient has been doing fair. She did have a cardiac MRI. No evidence of any cardiac sarcoid evident on the MRI which is reassuring. Although she does have a left ventricular outflow tract. Because of the significant she was referred to [facility] for further evaluation likely with Cardiothoracic surgery. From a sarcoid standpoint the patient appears to be in remission no evidence of any active disease. The patient does have daytime drowsiness. She does have an invalid [place] score of 06/15. She had 1 episode where she woke up short of breath and she checked her oxygen level was when was in the low 80s. She became concerned. The oxygen did come back up. Will go ahead and request a sleep study this time to further address the question sleep apnea. In the meantime no evidence of any active sarcoid so no need for any systemic therapies at this time. 06/17/2024 the patient is here for a pulmonary follow-up visit. She did have her evaluation [facility]. She was not very impressed. She is not clear exactly what took place. She needs to follow-up with her local motor overhauler to make signs of her visit and to review the impression from [facility]. For now the patient did have a repeat home sleep study. She does have moderate to severe sleep apnea with significant hypoxia. She needs to use her APAP. She did start using it. Her AHI using her machine is down 2 episodes per hour. Her pressure is adequate and her supplies are good. She will continue to use her CPAP at this time. In the meantime she is still having dyspnea on exertion. [id number] severity. It is not clear of her sarcoidosis is active. Will go ahead and request additional blood work and also a CT scan to address her pulmonary nodules into see this any progression of her interstitial lung disease to suggest sarcoid activity. If indeed she has active sarcoid she needs to start treatment. She also needs follow-up Cardiology to figure out what the next step is regarding the hypertrophic cardiac changes. 09/22/2024 the patient is here for pulmonary follow-up visit. She continues to have difficulties in general. She has significant arthralgias primarily of her hands and elbows. We did do blood work including connective tissue disease workup and she had an elevated PHUONG but was mild and everything also pretty negative. She does have evidence of osteoarthritis. The patient has been on meloxicam. She also takes Tylenol. Be reasonable to see if she responds to Plaquenil. Because of debilitation of her hands have gotten to the point that she can not even open the water chamber on her CPAP and therefore she has a hard time using it. So will trial her on the Plaquenil to see if this provides her relief in order for her to be able to do her activities of daily living. The patient has tried other alternative medicines including turmeric and glucosamine with out any significant improvement. As far as her cardiac status apparently she is doing okay. She does not have any further follow-up with Cardiology. And as far as her sarcoid seems to be stable at this time. For CPAP we did talk about alternative therapies including an oral mandibular device. If she continues to struggle with her CPAP then will have to refer her to a dentist in order to see if we can get her mandibular device. The patient does have severe sleep apnea already established on her sleep study. She can not sleep on her side because of her arthritic issues not allowing her and also her pacemaker. She has been sleeping on a recliner for now. We did go for brief walking oximetry the patient did very well maintaining a pulse ox of 96%. [facility] Medical History (Updated 03/12/24 @ 10:58 by Naldo Salguero MD) Limb swelling Pneumonia Pulmonary nodules Cardiomyopathy NSTEMI (non-ST elevated myocardial infarction) JES (obstructive sleep apnea) Asthma Sarcoid Family History Other HTN (hypertension) Social History Patient Tobacco Use Status: Never used Tobacco Review of Systems Const Reports daytime sleepiness, Reports fatigue, Denies headache(s) and Denies night sweats ENT Denies change in voice, Denies headache(s) and Denies lip swelling Card Denies chest pain, Reports leg edema, Denies dyspnea, Reports dyspnea on exertion and Reports orthopnea Resp Denies chest congestion, Reports cough, Denies excessive phlegm production, Denies dyspnea and Reports dyspnea on exertion GI Denies abdominal pain Musc Reports as per HPI, Reports deformity, Reports arthralgias, Reports joint swelling, Reports limited range of motion and Denies tingling Neuro Denies Neuro-related abnormal movements, Denies headache(s) and Denies tingling Psych Denies no additional complaints Endo Reports fatigue Gucci/Lymph Denies easy bleeding and Denies lymphadenopathy Aller/Immun Denies lip swelling Physical Exam Vital Signs: Last Vital Signs Pulse 60 09/22/24 10:58 BP 140/82 H 03/03/25 10:58 Pulse Ox 98 09/22/24 10:58 Oxygen Delivery Method Room Air 09/22/24 10:58 BMI result Body Mass Index 31.8 Const General: alert HEENT Head: Yes normocephalic Neck Neck: Yes normal visual inspection, Yes full ROM and Yes no lymphadenopathy Chest Chest palpation & inspection: normal inspection of the chest Resp Effort & Inspection: normal respiratory effort Auscultation: diminished lung sounds Cardio Rate: regular rate Rhythm: regular rhythm Heart sounds: S1 normal heart sound present, S2 normal heart sound present and Murmur heart sound present GI Palpation (GI): Soft to palpation and nontender Auscultation: normal bowel sounds Skin General skin exam: rashes and/or lesions noted Extrem General: Yes edema Assessment & Plan Assessment & Plan (1) Sarcoid: Code(s): D86.9 - Sarcoidosis, unspecified Category: Medical (2) Asthma: Code(s): J45.909 - Unspecified asthma, uncomplicated Category: Medical Qualifiers: Asthma complication type: uncomplicated Asthma persistence: persistent Asthma severity: moderate Qualified Code(s): J45.40 - Moderate persistent asth ma, uncomplicated (3) JES (obstructive sleep apnea): Code(s): G47.33 - Obstructive sleep apnea (adult) (pediatric) Category: Medical (4) Cardiomyopathy: Code(s): I42.9 - Cardiomyopathy, unspecified Category: Medical Qualifiers: Cardiomyopathy type: unspecified Qualified Code(s): I42.9 - Cardiomyopathy, unspecified (5) Pulmonary nodules: Code(s): R91.8 - Other nonspecific abnormal finding of lung field Category: Medical Plan REC: continue APAP Cardiac MRI at [facility] - no sarcoid +LVOT continue diuresis as tolerated no remicade, only if +active sarcoid activity continue Breo continue singulair Continue Benzonates as needed ABIGAIL as needed start Plaquenil trial x 1 month F/U 3-4 months Medications: New hydroxychloroquine 100 mg PO BID 60 tabs 6RF Coding Level of Care Code Est Pt Level 4 (77721) Complex EM visit Add On G2211 Diagnoses Sarcoid D86.9 Moderate persistent asthma without complication J45.40 Asthma complication type: uncomplicated Asthma persistence: persistent Asthma severity: moderate JES (obstructive sleep apnea) G47.33 Cardiomyopathy, unspecified type I42.9 Cardiomyopathy type: unspecified Pulmonary nodules R91.8 Time Spent (min) 18
--- OUTSIDE RECORDS SUMMARY | 2024-09-22 12:44 | XMS_ITS | Continuity of Care Document ---
Author Organization [facility] [address] [place] [address] Phone [phone] Care Team Providers Care Tying In Machine Operator Name Role Phone Stepan Mancia M.D. Care Team Information Re ceiver [phone] Tami Ziegler M.D. Care Team Information Aircraft Lay Out Worker [phone] Problems Active Problems Provider Date Asthma Stepan Mancia M.D. Onset: 1 Sarcoidosis Stepan Mancia M.D. Onset: 1 Obstructive sleep apnea syndrome Stepan johnson M.D. Onset: 05/04/2022 Essential hypertension Stepan Mancia M.D. O nset: 05/04/2022 Multinodular goiter Stepan Mancia M.D. Onse t: 06/23/2022 Hyperlipidemia Stepan Mancia M.D. Onset: 1 08/27/2022 Social History Type Date Description Comments Sex Unknown Tobacco Use Start: Unknown Never Smoked Cigarettes Smoking Status Reviewed: 06/10/24 Never Smoked Cigaret bry ETOH Use Denies alcohol use Allergies and adverse reactions Description No Known Drug Allergies Medications Active Medications SIG Qnty Indications Order ing Provider Date Atorvastatin [id number] Tablets 1 tablet by mouth in the evening 90tabs Stepan Mancia M.D. 12/11/[address] 1 by mouth every day 90tabs Stepan Mancia M.D. 12/05/2022 Hydrocortisone2.5% Cream apply twice a day to affected area as needed 30gm Stepan Mancia M.D. 07/10/2022 Oxybutynin Chloride ER10mg Tablets ER 24HR take 1 tablet by mouth once daily as directed 90tabs Stepan Mancia M.D. 05/04/2022 Qrtzrlucj56es Tablets 1 by mouth every day Stepan Mancia M.D. 05/04/2022 Metoprolol Succinate ER25mg Tablets ER 24HR Take 1 Tablet By Mouth Every Day Before Breakfast Unknown Albuterol Sulfate OHV641(90Base) mcg/Act Aerosol Naldo Salguero Vital Signs Date Vital Result Comment 06/10/2024 2:13pm BP Systolic 150 mmHg BP Diastolic 90 mmHg Heart Rate 72 /min Height 59 inches 4'11 Weight 152.38 lb BMI (Body Mass Index) 30.8 kg/m2 Results Test Acquired Date Facility Test Result H/L Range Note Comp. Metabolic Panel (14) 12/10/2023 [facility] Glucose 83 mg/dL 70-99 BUN 25 mg/dL 8-27 Creatinine 0.84 mg/dL 0.57-1.00 eGFR 76 mL/min/1.7 3 >59 BUN/Creatinine Ratio 30 High 12-28 Sodium 144 mmol/L 134-144 Potassium 4.6 mmol/L 3.5-5.2 Chloride 109 mmol/L High 96-106 Carbon Dioxide, Total 21 mmol/L 20-29 Calcium 9.1 mg/dL 8.7-10.3 Protein, Total 6.8 g/dL 6.0-8.5 Albumin 4.3 g/dL 3.9-4.9 Globulin, Total 2.5 g/dL 1.5-4.5 A/G Ratio 1.7 1.2-2.2 Bilirubin, Total 0.3 mg/dL 0.0-1.2 Alkaline Phosphatase 54 IU/L 44-121 Ast (Sgot) 22 IU/L 0-40 Alt (SGPT) 13 IU/L 0-32 Lipid Panel 12/10/2023 [facility] Cholesterol, Total 242 mg/dL High 100-199 Triglycerides 103 mg/dL 0-149 HDL Cholesterol 64 mg/dL >39 VLDL Cholesterol Sebastien 18 mg/dL 5-40 LDL Chol Calc (Nih) 160 mg/dL High 0-99 Comment: TNP Urinalysis, Complete 12/10/2023 [facility] Specific [place] 1.023 1.005-1.03 0 pH 6.0 5.0-7.5 Urine-Color Yellow Yellow Appearance Clear Clear WBC Esterase Trace Abnormal Negative Protein Negative Negative/T race Glucose Negative Negative Ketones Negative Negative Occult Blood Negative Negative Bilirubin Negative Negative Urobilinogen,Se mi-Qn 0.2 mg/dL 0.2-1.0 Nitrite, Urine Negative Negative Microscopic Examination See below: 1 Microscopic Examination TNP WBC 0-5 /hpf 0 - 5 RBC 0-2 /hpf 0 - 2 Epithelial Cells (non renal) 0-10 /hpf 0 - 10 Epithelial Cells (renal) TNP Casts None seen /lpf None seen Cast Type TNP Crystals TNP Crystal Type TNP Mucus Threads TNP Bacteria None seen None seen/Few Yeast TNP Trichomonas TNP Comment TNP CBC With Differential/Pl atelet 12/10/2023 [facility] WBC 5.4 x10E3/uL 3.4-10.8 RBC 4.48 x10E6/uL 3.77-5.28 Hemoglobin 11.5 g/dL 11.1-15.9 Hematocrit 37.0 % 34.0-46.6 MCV 83 fL 79-97 MCH 25.7 pg Low 26.6-33.0 MCHC 31.1 g/dL Low 31.5-35.7 RDW 14.8 % 11.7-15.4 Platelets 234 x10E3/uL 150-450 Neutrophils 54 % Not Estab. Lymphs 28 % Not Estab. Monocytes 8 % Not Estab. Eos 9 % Not Estab. Basos 1 % Not Estab. Immature Cells TNP Neutrophils (Absolute) 3.0 x10E3/uL 1.4-7.0 Lymphs (Absolute) 1.5 x10E3/uL 0.7-3.1 Monocytes(Absol subhash) 0.4 x10E3/uL 0.1-0.9 Eos (Absolute) 0.5 x10E3/uL High 0.0-0.4 Baso (Absolute) 0.0 x10E3/uL 0.0-0.2 Immature Granulocytes 0 % Not Estab. Immature Grans (Abs) 0.0 x10E3/uL 0.0-0.1 NRBC TNP Hematology Comments: TNP TSH+Free T4 12/10/2023 [facility] T4,Free(Direct) 1.10 ng/dL 0.82-1.77 TSH 3.420 uIU/mL 0.450-4.50 0 Laboratory test finding 01/25/2023 [facility] TSH With Reflex To FT4 3.86 uIU/mL (0.4-4.2) Comprehensive Metabolic Panl 12/05/2022 [facility] Glucose 86 mg/dL (70-99) BUN 20 mg/dL (8-23) Creatinine 0.8 mg/dL (0.5-1.0) Sodium 142 mmol/L (133-145) Potassium 4.6 mmol/L (3.6-5.2) Chloride 106 mmol/L (98-107) Bicarbonate 27 mmol/L (22-29) Anion Gap 9 (4-17) Albumin 4.5 GM/DL (3.4-4.8) Calcium 9.4 mg/dL (8.6-10.5) Bilirubin,Total 0.2 mg/dL (0-1.2 ) Total Protein 7.0 GM/DL (6.2-8.2 ) Ag Ratio 1.8 Ast 22 U/L (0-32) Alk Phos 53 U/L (35-104) Alt 18 U/L (0-33) Estimated GFR Creatinine 82 ML/MIN/1.7 3M2 2 Complete Abc With Diff 12/05/2022 [facility] WBC 6.2 K/MM3 (4.0-11.0) RBC 4.52 M/MM3 (4.20-5.40 ) HGB 11.1 GM/DL Low (11.7-15.5 ) HCT 37.6 % (35.7-45.8 ) MCV 83.2 FL (80.0-100. 0) MCH 24.6 pg Low (27.0-34.0 ) MCHC 29.5 g/dL Low (33.0-37.0 ) PLT 233 K/MM3 (150-460) RDW-SD 45.1 FL (<47.0) MPV 12.4 FL (9.4-12.4) Automated NRBC 0.0 #/100WBC'S Abs. NRBC 0.0 K/MM3 Neut # 3.6 K/MM3 (1.3-7.0) Lymph # 1.9 K/MM3 (0.8-3.1) Tompkins# 0.4 K/MM3 (0.4-0.9) Eo # 0.3 K/MM3 (0.0-0.4) Baso # 0.0 K/MM3 (0.0-0.1) Abs. Imm Gran 0.0 K/MM3 Neut 57.9 % (44-76) Lymph 30.0 % (15-43) Monocyte 6.0 % (4.5-10.5) Eo 5.3 % (0-6) Baso 0.6 % (0-2) Imm Gran 0.2 % Order 12/05/2022 Inhouse EKG <pending> Laboratory test finding 09/01/2022 [facility] D-Dimer 0.93 mg/LFEU (<1.01) 3 1 Microscopic was mj cated and was performed. 2 Creatinine based est imated glomerular filtration (eGFR) in adults is calculated using the [employer] recommended 2020 CKD-EPI equation. Estimates GFR from serum creatinine, age and sex. 3 The sales and distribution clerk rec ommends that a d-Dimer value of <0.5 FEU mg/L can be used in conjunction with clinical criteria to help exclude Deep Vein Thrombosis (DVT) and/or Pulmonary Embolism (PE) in patients with a low pretest probability. Procedures Date Code Description Status 12/05/2022 47392 Electrocardiogram Complete C ompleted 12/01/2022 NSHOWOFF No Show Office Visit Complet ed Medical Devices Description No Information Available Encounters Type Date Location Provider Dx Diagnosis Office Visit 05/26/2024 2:14p Main Office Stepan Mancia M.D. E78.5 Hyperlipidemia, unspecified I10 Essential (primary) hypertension Assessments Date Code Description Provider 06/10/2024 I10 Essential (primary) hyperten uriah Stepan Mancia M.D. 06/10/2024 E04.1 Thyroid nodule Stepan stewart M.D. 06/10/2024 D86.9 Sarcoidosis Stepan johnson M.D. Plan of Treatment Future Appointment(s):* 12/08/2024 10:30 am - Stepan Mancia M.D. at Main Office 06/10/2024 - Stepan Mancia M.D.* I10 Essential (primary) hypertension * E04.1 Thyroid nodule * D86.9 Sarcoidosis Functional Status Description No Information Available Mental Status Description No Information Available Referrals Refer to Reason for Referral Status Appt [facility] Cardiology (New Patients) SARCOIDOSIS O F THE HEART Closed [address] [place], [place] [id number] [phone] Tami Ziegler M.D. LEFT LOBE THYROID NO DULE . SUSPICIOUS CANCER ON AFIRMA Closed 09/01/2022 Medical Center (Notes Only) [place] [address] [phone]
--- OUTSIDE RECORDS SUMMARY | 2024-09-22 12:44 | XMS_ITS | Data Portability ---
Author Organization [facility], [facility] Address [address] [place] [address] Assessment Encounter Date Assessment Date Assessment LastModified by Organization Details LastModified Time 10/15/2023 10/15/2023 I am seeing the patient today under the supervision of Dr. Cleaning who was available but who did not see the patient. HPI: Patient presents for follow-up regarding low back pain. patient states she recently deeveloped increased low back pain when bending to do something about a week ago. Seems to be improving steadily. Denies radiating leg pain. Still having difficulty with the right knee but holding off on surgery for now.. Denies bowel or bladder dysfunction. TREATMENTS: Bed rest, activity modification, home exercise core strengthening lumbar stabilization program, bracing, heat/ice and OTC Tylenol/NSAIDs. Past family, medical, social history and review of systems has been reviewed, updated and signed by me and is located in the patient? s chart. Examination: The patient is well appearing, alert and oriented x3 and in no acute distress. Gait is normal. Inspection of the spine reveals no step off, deformity or overlying skin changes. Range of motion of the lumbar spine is 60% of normal. Range of motion of the hip and knees full without discomfort. The spine is mildly tender over the paravertebral musculature and sciatic notch. Nontender over the greater trochanters. Straight leg raise is positive on the right side seated with plantar flexion weakness noted 3/5 on the right side only. Strength and sensation intact otherwise. Re? e xes normal. No ankle clonus. CT scan reveals multilevel degenerative findings with moderate central stenosis at L3-4 and severe foraminal stenosis at L4-5 and L5-S1 on the right correlating with right leg symptoms. Impression/Plan: increased low back pain due to muscle strain recently about a week ago. Recommend heat, rest and NSAIDs as nneeded. Leg pain improved. Continue home exercise program. Follow-up if needed. [facility] speech recognition seed expert software was used to create portions of this document. An attempt at proofreading has been made to minimize errors. Please call for corrections. [email or web address] Not available 10/15/2023 13:13:44 Plan of Treatment Reminders Order Date Submit Date Provider Last Modified By Organization Details Last Modified Time Details Appointments None recorded. Lab None recorded. Referral None recorded. Procedures None recorded. Surgeries None recorded. Imaging XR, hip + pelvis, bilateral , 2 view - new pt 2 views bilateral hip rm 120 2023 024 [facility], [address], [facility] [address], [place], [address], 4 15:59:47 Medication Orders meloxicam 15 mg tablet 2023 024 [facility], [address] [facility], [place], [address], 4 16:46:06 Patient TargetsNo targets recorded. Patient InstructionsNo instructions recorded. Reason for Referral None Reported. Results Created Date Observation Date Name Description Value Unit Range Abnormal Flag Note LastModifiedBy Organization Detail LastModifiedTime 03/22/2004/27/2020 imagi ng/di agnos tic resul t No observ ation record ed. [email or web address] Not Available 02/22 09:21:55 03/22/20 24 04/27/2020 imagi ng/di agnos tic resul t No observ ation record ed. [email or web address] Not Available 02/22 09:22:00 03/22/20 24 06/09/2022 imagi ng/di agnos tic resul t No observ ation record ed. [email or web address] Not Available 02/22 09:22:38 04/01/20 24 04/01/2024 XR, hip + pelvi s, bilat eral, 2 view [email or web address]:/ [email or web address] ?Encry pted=s hAaTro YD8dLq bEUv6g %2BXZw aYqtaq 0bqfl% 2Fg9IQ a4ajBk vP9nXo QUaueC m3YtLR FvZlgJ JJ8mAn HZtai3 1b5128 AC0Kqa n%2BAU 6KhKiQ trMwF INTERFACE [facility] [address], [place], [address], 04/01/2024 16:29:01 04/01/20 24 04/01/2024 XR, hip + pelvi s, kvngat otilia, 2 view [email or web address]:/ [email or web address] ?Encry pted=s hAaTro YD8dLq bEUv6g %2BXZw aYqtaq 0bqfl% 2Fg9IQ a4ajBk vP9nXo QUaueC m3YtLR FvZlgJ JJ8mAn HZtai3 8n3129 AC0Kqa n%2BAU 6KhKiQ trMwF INTERFACE [facility] [address], [place], [address], 04/01/2024 16:29:03 Result Notes None recorded. Problems Name Problem SNOMED Code Status Onset Date Resolution Date Notes Provider Name and Address Organization Details Recorded Time Low back pain 969184776 Active 2020 Status : 'A'; Not Available [facility] 4 11:58:04 Osteoarthr itis of right knee joint 4975798396139 00 Active 2020 Status : 'A'; Not Available [facility] 4 11:58:04 Problem Notes None recorded. Procedures Surgical History None recorded. Imaging Results Imaging Date Name Status LastModified by Organiz ation Details LastModified Time 04/27/2020 imaging/diag nostic result completed Information not available 03/22/2024 09:21:55 04/27/2020 imaging/diag nostic result completed Information not available 03/22/2024 09:22:00 06/09/2022 imaging/diag nostic result completed Information not available 03/22/2024 09:22:38 04/01/2024 XR, hip + pelvis, bilateral, 2 view completed INTER[facility] [address], [place], [address], 04/01/2024 16:29:01 04/01/2024 XR, hip + pelvis, bilateral, 2 view completed [facility] [address], [place], [address], 04/01/2024 16:29:03 Procedure Notes None recorded. Medical Equipment None Reported. Allergies Allergen ID Allergen Name Allergen Category Reaction Reaction Severity Criticality Documentation Date Start Date Code Code System Note Provider Name and Address Organization Details Recorded Time 323075 Adhesive Bandages medicatio n Not available Not available Not available 09/24/20232021 09611 UNK Not Available [facility] 4 16:24:33 287542 latex gloves medicatio n Not available Not available Not available 09/24/20232014 80391 UNK Not Available [facility] 4 16:24:33 Medications Name Sig Start Date Stop Date Status Note LastModified by Organization Details LastModified Time amoxicillin 500 mg capsule TAKE 4 CAPSULES BY MOUTH 1 HR PRIOR TO DENTAL APPT. active Not Available Not Available No t Available atorvastati n 40 mg tablet active Not Available Not Available Not Available atorvastati n 10 mg tablet active Not Available Not Available Not Available oxybutynin chloride ER 10 mg tablet,exte nded release 24 hr active Not Available Not Available Not Available metoprolol succinate ER 50 mg tablet,exte nded release 24 hr TAKE 2 TABLETS BY MOUTH EVERY DAY active Not Available Not Available No t Available meloxicam 15 mg tablet TAKE 1 TABLET BY MOUTH EVERY DAY DIRECTED active Not Available Not Available No t Available hydrocortis one 2.5 % topical cream active Not Available Not Available Not Available montelukast 10 mg tablet TAKE 1 TABLET BY MOUTH EVERY DAY active Not Available Not Available No t Available furosemide 20 mg tablet active Not Available Not Available Not Available metoprolol succinate ER 25 mg tablet,exte nded release 24 hr TAKE 1 TABLET BY MOUTH DAILY active Not Available Not Available No t Available ibuprofen 600 mg tablet TAKE 1 TABLET BY MOUTH EVERY 6 HOURS NEEDED FOR MILD PAIN active Not Available Not Available No t Available albuterol sulfate HFA 90 mcg/actuati on aerosol inhaler active Not Available Not Available Not Available oxycodone HCl-oxycodo ne-ASA as directed 1 TABLET Q 4 HOURS PRN PAIN DO NOT DIRVE WHILE ON THIS MED 06/01 completed Statu s: 'Disc ontin ued'; Not Available Not Available Not Available Vitals Date Recorded Body height Body mass index (BMI) Body weight Provider Name and Address Organization Details Last Updated DateTime 10/15/2023 149.86 cm 30.7 kg/m2 78965.04 g Kaity joaquin [facility] 10/15/2023 11:50:04 Date Recorded Body height Body mass index (BMI) Body weight Provider Name and Address Organization Details Last Updated DateTime 04/01/2024 149.86 cm 30.3 kg/m2 91275.86 g Stacie Ordaz [facility] 04/01/2024 16:21:29 Social History None recorded. Functional Status None recorded. Mental Status None recorded. Family History Nothing Reported. Medical History No medical history recorded. Gynecological HistoryNo gynecological history recorded. Obstetrics History GPAL:G 0 P 0 0 0 0 Past Encounters Encounter ID Performer Location Encounter Start Date Encounter Closed Date Diagnosis/Indication Diagnosis SNOMED-CT Code Diagnosis ICD10 Code Diagnosis Note [id number] [facility] [address] [place] [address] 10/15/2023 10:55:35 11/03/2023 16:17:28 Low back pain 403399094 M54.50 [id number] [facility] [address] [place] [address] 04/01/2024 16:13:03 04/22/2024 15:59:47 Bilateral hip joint pain 6048702627 1666992 M25.551 M25.552 Trochanter ic bursitis of left hip 4970026986 57001 M70.62 Trochanter ic bursitis of right hip 9360032151 66890 M70.61 Health Concerns Section Related Observation LastModified by Organization Detai ls LastModified Time None Recorded Concern Status LastModified by Organization Details LastModified Time None Recorded Advance Directives Directive None Recorded Payers Encounter Date Sequence Insurance Name Policy Number Policy Willis Covered Member ID Willis Member ID Guarantor Name 10/15/2023 1 [place] [facility] Sharon Onrris Woods [id number] Sharon Norris [place] 10/15/2023 2 UNICARE - [employer] INDEMNITY PLAN (MEDICARE SUPPLEMENT) [id number] Sharon Norris-Sakshi edouard [id number] Sharon Norris [place] 04/01/2024 1 [place] [facility] Sharonjose Cameronenez [id number] Sharon Norris [place] 04/01/2024 2 [employer] - [employer] INDEMNITY PLAN (MEDICARE SUPPLEMENT) [id number] Sharon Norris-Sakshi edouard [id number] Sharon Norris [place] Notes Date Note Type Note Provider Name and Address Organization Details Recorded Time 04/01/2024 text/html I am seeing the patient today under the supervision of Dr. Flori Jin who was available but who did not see the patient. HPI:Patient is a 69-year-old female who presents to the office today with complaint of bilateral hip pain. Patient says that she's had bilateral hip pain for the last few weeks without any injury or fall. Patient does attribute the increase pain in her hips to going for a very long trip across the country and does a lot of driving. Has been having more pain in left hip than the right hip. Pain is located primarily on the lateral aspects of the bilateral hips. She has been utilizing Tylenol as well as ibuprofen and Aleve as-needed for pain relief She denies any groin pain. Denies any low back pain. Past family, medical, social history and review of systems has been reviewed, updated and is located in the patient? s chart. Examination:Well appearing 69-year-old female in no acute distress. She is alert and oriented x3. She ambulates with a symmetric gait. Bilateral hips reveal no erythema, warmth, ecchymosis, swelling. There is tenderness to palpation over the greater trochanters. Full range of motion of the bilateral hips in all directions with minimal discomfort. Hip strength 5/5 against resistance in all directions. Negative SKIP test bilaterally. Negative Stinchfield test bilaterally. Calves are soft and nontender. 2 views of the bilateral had an independent reviewed in the office today. Right hip reveals well preserved joint space with minimal arthritic changes noted.No fracture or dislocation. The left hip shows left total hip arthroplasty in good alignment. No evidence of any osteolyses or loosening. Slight heterotopic ossification noted. No fracture. Impression:Wei melendez hip trochanteric bursitis Plan:We discussed nature the diagnosis as well as treatment for this including anti-inflammatorie s medications, physical therapy, cortisone injection. Patient opted for at home PT program which we went over specific exercises to focus on as well as prescription anti-inflammatorie s medication. Patient given a prescription today for meloxicam which she will utilize once daily in the morning with food. Advised her not utilize any other anti-inflammatorie s medications while she has taken this. Patient can follow-up with us on an as-needed basis. Can come back for cortisone injections as-needed. At this time all patient questions and concerns were answered today. Ezra Mehta PA-C [address] [facility] [address], [place], [address], [place] [facility] 04/03/2024 15:40:25 OBGyn Episode No OBEpisode recorded.
== END 2024-09-22 11:34 | disposition home or self-care (01) ==
PROVIDERS: PCP Internal Medicine Endocrinology, Diabetes & Metabolism; Visit Provider Hospitalist
DX: D86.9 Sarcoidosis, unspecified (principal); J45.40 Moderate persistent asthma, uncomplicated; G47.33 Obstructive sleep apnea (adult) (pediatric); I42.9 Cardiomyopathy, unspecified; R91.8 Other nonspecific abnormal finding of lung field
CPT/HCPCS: 99214; G2211

== ENCOUNTER → 2024-09-22 10:49 | Outpatient (BNVA) | payer MEDICARE, OTHER, SELFPAY | PROVIDERS: PCP Internal Medicine Endocrinology, Diabetes & Metabolism; Visit Provider Hospitalist | DX: D86.9 Sarcoidosis, unspecified (principal); J45.40 Moderate persistent asthma, uncomplicated; G47.33 Obstructive sleep apnea (adult) (pediatric); I42.9 Cardiomyopathy, unspecified; R91.8 Other nonspecific abnormal finding of lung field | CPT/HCPCS: 99212 ==

== ENCOUNTER 2025-02-02 11:00 | Outpatient (REF) | payer MEDICARE, OTHER, SELFPAY ==
[2025-02-02 11:47] LABS: MANUAL DIFF FLAG NO
[2025-02-02 12:34] LABS: Hematocrit 36.6 % (37.0-47.0); Hemoglobin 11.5 g/dl (12.0-16.0); Imm Gran Abs Auto 0.01 X10*3/uL (0.00-0.03); Imm Gran Pct Auto 0.2 % (0.0-0.4); Lymphocytes Absolute Auto 1.6 X10*3/uL (1.2-4.9); Mean Corpuscular HGB Conc 31.4 g/dl (31.0-35.0); Mean Corpuscular Hemoglobin 27.4 pg (27.0-33.0); Mean Corpuscular Volume 87.1 fL (80.0-98.0); NRBC Abs Auto 0.000 X10*3/uL (0.0-0.012); NRBC Pct Auto 0.0 /100WBC (0.0-0.2); Platelet Count 217 X10*3/uL (160-400); Red Blood Count 4.20 X10*6/uL (4.20-5.50); White Blood Count 4.8 X10*3/uL (4.8-10.8)
--- OUTSIDE RECORDS SUMMARY | 2025-02-02 12:43 | XMS_ITS | Encounter Summary ---
Author Organization [facility] Address [address] [place] [address] Care Team Providers Care Field Service Rep Name Role Phone Stepan Mancia MD Primary Care Provider Unav ailable Reason for Visit * Reason Onset Date Comments Provider Call Back 10/31/2017 Encounter Details Date Type Department Care Team Description 10/31/2017 Telephone Pulmonology - [address] [place] [address] Naldo Salguero MD Provider Call Back Social History Tobacco Use Types Packs/Day Years Used Date Smoking Tobacco: Never Smokeless Tobacco: Never Sex Assigned at Date Recorded Not on file documented as of this encounter Miscellaneous Notes * Telephone Encounter - Naldo Salguero MD - 11/01/2017 4:19 PM EDT Called left message * Telephone Encounter - Nina Knowles M.A. - 10/31/2017 10:58 AM EDT Forward to . * Telephone Encounter - Tammie Menjivar - 10/31/2017 10:[address] Salguero please call Dr Hampton from [facility]. His cell is [phone]. Please call in afternoon if possible. documented in this encounter Plan of Treatment Not on file documented as of this encounter Visit Diagnoses Not on filedocumented in this encounter Care Teams Field Service Rep Relationship Specialty Start Date End Date Stepan Mancia MD PCP - General Endocrinology 08/02/17 documented as of this encounter
[2025-02-02 12:57] LABS: Alanine Aminotransferase 16 U/L (0-31); Albumin Level 4.3 g/dL (3.5-5.0); Alkaline Phosphatase 52 U/L (39-117); Anion Gap 10 (12-20); Aspartate Amino Transferase 25 U/L (5-31); Blood Urea Nitrogen 23 mg/dL (9-16); Calcium 9.0 mg/dL (8.4-10.2); Carbon Dioxide 26 mmol/L (22-29); Chloride 109 mmol/L (96-108); Estimated Glomerular Filt Rate > 60; Potassium 4.0 mmol/L (3.3-5.1); Sodium 141 mmol/L (135-145); Total Protein 7.1 g/dL (6.5-8.0)
[2025-02-02 13:03] LABS: B Type Natriuretic Peptide 95 pg/mL (<100)
[2025-02-02 13:07] LABS: Troponin-I High Sensitivity < 2.7 ng/L (<3.5-17.0)
== END 2025-02-02 11:01 | disposition home or self-care (01) ==
LOC: HO.LAB 11:00
PROVIDERS: PCP Internal Medicine Endocrinology, Diabetes & Metabolism; Visit Provider Hospitalist
DX: J45.40 Moderate persistent asthma, uncomplicated (principal); D86.9 Sarcoidosis, unspecified; G47.33 Obstructive sleep apnea (adult) (pediatric); I42.9 Cardiomyopathy, unspecified; R91.8 Other nonspecific abnormal finding of lung field; I50.9 Heart failure, unspecified; M79.89 Other specified soft tissue disorders; Z79.899 Other long term (current) drug therapy
CPT/HCPCS: 36415; 80048; 80076; 82164; 83880; 84484; 85025; 85652; 99212

== ENCOUNTER 2025-02-02 11:00 | Outpatient (AMB) | payer MEDICARE, OTHER, SELFPAY ==
[2025-02-02 11:04] VITALS: BP 150/72; PULSE 60; O2SAT 96; BMI 31.1
--- NOTE | 2025-02-02 11:04 | A.OFFVIS_ITS ---
Vital Signs 02/02/25 11:04 Height 4 ft 10 in Weight 148 lb 12.992 oz BMI 31.1 BP 150/72 H Blood Pressure Location Lt brachial Position Sitting Pulse 60 Pulse Source Pulse Oximeter Pulse Oximetry (%) 96 Oxygen Delivery Method Room Air Intake Visit Reasons: COPD Accompanied by: Self / Same As Patient Allergies adhesive tape Allergy (Mild, Verified 02/02/25 11:09) Rash latex Allergy (Mild, Verified 02/02/25 11:09) Rash HPI Comments Details: The patient is a 69-year-old woman with a known history of sarcoid and obstructive sleep apnea. During the last visit the patient was having some chest discomfort. Her EKG was abnormal and her cardiac enzymes were elevated. She was admitted to the hospital in transfer to [facility]. There, she did have a cardiac catheterization demonstrated no significant CAD which is reassuring. Ultimately, underwent an MRI of the heart demonstrating no significant infiltrative cardiac disease to suggest cardiac sarcoid. Also, in the past she did have a cardiac PET that was negative for any cardiac sarcoid. 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 Current the patient has been feeling better. Her shortness of breath has improved. no evidence of active cardiac sarcoid at this time. will recheck her Champ level in the next few weeks and have to Champ level is elevated we will talk about repeating her cardiac PET scan. 10/17/2022 the patient is overall doing better. Her cough is better and her breathing is better. She does stop the methotrexate and she did take the prednisone and also the Vantin. She also started the mycophenolate. However, after reading the side effects in the adverse issues potentially with that she decided to stop it altogether. Clinically the patient is feeling better and she opts to avoid any immunosuppressants at this time specially since she is going to need surgery in a couple months. I did agree with her as long she is doing okay. If her symptoms were to worsen we can also readdressed. I do believe that she was having a reaction to the methotrexate at the end. A or if anything indeed a could have been an infectious process. Do a way to know for sure is to repeat the CT scan in several months after her surgery in order to see if there is any progression of the airspace disease and nodular densities. If indeed she becomes symptomatic we can address that earlier. But right now will try to minimize her immune suppression in view of her other ongoing issues. Clinically patient is doing better. She is using respiratory therapy. 02/19/2023 the patient is here for a pulmonary follow-up visit. The patient's breathing seems to be better overall. She stop the methotrexate and has been off the prednisone. She also completed the antibiotics. The patient has been noticing lower extremity edema which is new for her. Moderate in the mouth. The patient did have a Doppler ultrasound the ruled out DVT. 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 She was being followed by Cardiology program at [facility] specially with when she was diagnosed with cardiac sarcoidosis. The patient has not had an echo in more than a year. Will go ahead and start her on diuretics because appears to be volume overloaded will request blood work and also request an echocardiogram. The patient needs to be stab which with a new bottoming room supervisor at this time. Hold off any treatments for sarcoid at this time. Although depending on the results we can talk about potential therapies. She tried immunomodulators without any significant improvement if anything worsening symptoms. I do believe that if she has any evidence of active sarcoidosis we can consider Remicade as a very good option for her. 05/21/2023 the patient is here for a pulmonary follow-up visit. Overall she is feeling better. She continues on the Lasix 20 mg daily. Although she has noticed some increased lower extremity swelling since we last spoke. Should go ahead increase it to 2 tablets for the next few days and then go back down to 20 mg daily. She did have an echocardiogram demonstrating significant asymmetric hypertrophy of the left ventricle. She will be following up with Cardiology soon. She is also going to have a pacemaker check as well. We did review her blood work which is reassuring. The inflammatory markers have subsided significantly. At this point the patient does not need any therapy for the sarcoid as appears to be dormant. She continues use respiratory therapy as needed. Recently she did have a upper respiratory illness and she was able to clear without any medications prescribed. Clinically the patient is doing better will follow-up in 4-6 months. 08/20/2023 the patient is here for a pulmonary follow-up visit. The patient continues to have difficulties. Complaining of episodes of tachycardia palpitations. In addition to that she is having some lower extremity edema. She is responding well to the Lasix. She was supposed to see Cardiology but since she is already established at [facility] they would not see her here in her situation being so complex. We did again review her echocardiogram demonstrating the significant asymmetric hypertrophy concerning. The patient does have an employment advisor at [facility] that prescribes her metoprolol. She is describing episodes of tachycardia and palpitations so therefore since she has taking a small dose I will go up on it to 25 mg. She should be followed up with him soon and if he thinks his reasonable he can continue prescribing the higher dose if he does not then he can bring it down to the previous dose. The patient will have blood work as well in the meantime to make sure that she can not tolerate the additional diuresis. From a pulmonary standpoint she continues to do fairly well though still complaining of some shortness of breath vysr-ib-[id number] severity. Her respiratory exam is clear. She is still waiting to have knee surgery and now having issues with surgeries that she is going to further require. Therefore rather not place her on any immunosuppressant therapy for the purpose of postoperative healing. No evidence of any active sarcoid at this time. 11/26/2023 the patient is here for a pulmonary follow-up visit. Patient is concerned that she is developing worsening she did finally see Cardiology at [facility]. She is scheduled to undergo an MRI of the heart to assess for any cardiac sarcoid. She was told to stop the Lasix. She stopped it after 3 days she noticed significant swelling of her lower extremity and she became very concerned. She started noticing some decrease appetite and early satiety. The patient did restart taking the Lasix. I did recommend she can talk to her bottoming room supervisor regarding now. Once she gets her MRI of the heart I will go ahead and review to see if there is any active sarcoid. If the patient does have active sarcoidosis then will have to see about starting immunomodulator therapy or biologic therapy. She has been on multiple medications in the past. I do believe that Remicade will be a better option for her moving forward if she has any activity. In the meantime she will take additional diuresis today. 03/12/2024 the patient is here for a pulmonary follow-up visit. Overall the patient has been doing fair. She did have a cardiac MRI. No evidence of any cardiac sarcoid evident on the MRI which is reassuring. Although she does have a left ventricular outflow tract. Because of the significant she was referred to [facility] for further evaluation likely with Cardiothoracic surgery. From a sarcoid standpoint the patient appears to be in remission no evidence of any active disease. The patient does have daytime drowsiness. She does have an invalid Sycamore score of 06/15. She had 1 episode where she woke up short of breath and she checked her oxygen level was when was in the low 80s. She became concerned. The oxygen did come back up. Will go ahead and request a sleep study this time to further address the question sleep apnea. In the meantime no evidence of any active sarcoid so no need for any systemic therapies at this time. 06/17/2024 the patient is here for a pulmonary follow-up visit. She did have her evaluation [facility]. She was not very impressed. She is not clear exactly what took place. She needs to follow-up with her local bottoming room supervisor to make signs of her visit and to review the impression from [facility]. For now the patient did have a repeat home sleep study. She does have moderate to severe sleep apnea with significant hypoxia. She needs to use her APAP. She did start using it. Her AHI using her machine is down 2 episodes per hour. Her pressure is adequate and her supplies are good. She will continue to use her CPAP at this time. In the meantime she is still having dyspnea on exertion. Mqmd-uh-abibjinr severity. It is not clear of her sarcoidosis is active. Will go ahead and request additional blood work and also a CT scan to address her pulmonary nodules into see this any progression of her interstitial lung disease to suggest sarcoid activity. If indeed she has active sarcoid she needs to start treatment. She also needs follow-up Cardiology to figure out what the next step is regarding the hypertrophic cardiac changes. 09/22/2024 the patient is here for pulmonary follow-up visit. She continues to have difficulties in general. She has significant arthralgias primarily of her hands and elbows. We did do blood work including connective tissue disease workup and she had an elevated PHUONG but was mild and everything also pretty negative. She does have evidence of osteoarthritis. The patient has been on meloxicam. She also takes Tylenol. Be reasonable to see if she responds to Plaquenil. Because of debilitation of her hands have gotten to the point that she can not even open the water chamber on her CPAP and therefore she has a hard time using it. So will trial her on the Plaquenil to see if this provides her relief in order for her to be able to do her activities of daily living. The patient has tried other alternative medicines including turmeric and glucosamine with out any significant improvement. As far as her cardiac status apparently she is doing okay. She does not have any further follow-up with Cardiology. And as far as her sarcoid seems to be stable at this time. For CPAP we did talk about alternative therapies including an oral mandibular device. If she continues to struggle with her CPAP then will have to refer her to a dentist in order to see if we can get her mandibular device. The patient does have severe sleep apnea already established on her sleep study. She can not sleep on her side because of her arthritic issues not allowing her and also her pacemaker. She has been sleeping on a recliner for now. We did go for brief walking oximetry the patient did very well maintaining a pulse ox of 96%. 02/02/2025 the patient is here for pulmonary follow-up visit. Continues have multiple myalgias and arthralgias. The Plaquenil was not helpful. She stopped it. She has been noticing increasing lower extremity edema. She has also gained weight. Has also noticed some elevated blood pressures and feels like her heart is working a little hard. I did confirm that she does have signific ant volume overload status at this time. Hopefully with some diuresis her blood pressure will come down and her volume status would improve. She is going to weigh herself closely. She will follow-up with the bottoming room supervisor as well. This is not to February. In the meantime she continues use the PAP therapy. The PAP therapy continues to be affecting beneficial. AHI is down to about 1. She does use more than 4 hours a night. She still struggles with sleep. She really does not want to have any prescriptions sleep medications. She will try melatonin though. I will send a script to the pharmacy. As far as laboratory she is going to get blood work now. CT scan her last CT scan was back in July 2024 so therefore does not need any imaging studies right now. Will have her come back in around 3-4 months with PFTs. [facility] Medical History (Updated 03/12/24 @ 10:58 by Naldo Salguero MD) Limb swelling Pneumonia Pulmonary nodules Cardiomyopathy NSTEMI (non-ST elevated myocardial infarction) JES (obstructive sleep apnea) Asthma Sarcoid Family History Other HTN (hypertension) Social History Patient Tobacco Use Status: Never used Tobacco Review of Systems Const Reports daytime sleepiness, Reports fatigue, Denies headache(s), Denies night sweats and Reports weight gain ENT Denies change in voice, Denies headache(s) and Denies lip swelling Card Denies chest pain, Reports leg edema, Denies dyspnea, Reports dyspnea on exertion and Reports orthopnea Resp Denies chest congestion, Reports cough, Denies excessive phlegm production, Roger es dyspnea and Reports dyspnea on exertion GI Denies abdominal pain Musc Reports as per HPI, Reports deformity, Reports arthralgias, Reports joint swe lling, Reports limited range of motion and Denies tingling Neuro Denies Neuro-related abnormal movements, Denies headache(s) and Denies tingling Psych Denies no additional complaints Endo Reports fatigue Gucci/Lymph Denies easy bleeding and Denies lymphadenopathy Aller/Immun Denies lip swelling Physical Exam Vital Signs: Last Vital Signs Pulse 60 02/02/25 11:04 BP 150/72 H 02/02/25 11:04 Pulse Ox 96 02/02/25 11:04 Oxygen Delivery Method Room Air 02/02/25 11:04 BMI result Body Mass Index 31.1 Const General: alert HEENT Head: Yes normocephalic Neck Neck: Yes normal visual inspection, Yes full ROM and Yes no lymphadenopathy Chest Chest palpation & inspection: normal inspection of the chest Resp Effort & Inspection: normal respiratory effort Auscultation: diminished lung sounds Cardio Rate: regular rate Rhythm: regular rhythm Heart sounds: S1 normal heart sound present, S2 normal heart sound present and Murmur heart sound present GI Palpation (GI): Soft to palpation and nontender Auscultation: normal bowel sounds Skin General skin exam: rashes and/or lesions noted Extrem General: Yes edema Assessment & Plan Assessment & Plan (1) Sarcoid: Code(s): D86.9 - Sarcoidosis, unspecified Category: Medical (2) Asthma: Code(s): J45.909 - Unspecified asthma, uncomplicated Category: Medical Qualifiers: Asthma complication type: uncomplicated Asthma persistence: persistent Asthma severity: moderate Qualified Code(s): J45.40 - Moderate persistent asthma, uncomplicated (3) JES (obstructive sleep apnea): Code(s): G47.33 - Obstructive sleep apnea (adult) (pediatric) Category: Medical (4) Cardiomyopathy: Code(s): I42.9 - Cardiomyopathy, unspecified Category: Medical Qualifiers: Cardiomyopathy type: unspecified Qualified Code(s): I42.9 - Cardiomyopathy, unspecified (5) Pulmonary nodules: Code(s): R91.8 - Other nonspecific abnormal finding of lung field Category: Medical Plan REC: continue APAP Cardiac MRI at [facility] - no sarcoid +LVOT continue diuresis as tolerated no remicade, only if +active sarcoid activity continue Breo continue singulair Continue Benzonates as needed ABIGAIL as needed start Lasix 20mg x 3 days, then should weigh herself daily. If >2lbs/24 hours ot 3lb/48 should take [address] chest 07/2025 PFTs F/U 3-4 months Orders: Orders Troponin-I High Sensitivity Today D86.9 - Sarcoidosis, unspecified, I42.9 - Cardiomyopathy, unspecified, I50.9 - Heart failure, unspecified, M79.89 - Other specified soft tissue disorders Complete Blood Count Auto Diff Today D86.9 - Sarcoidosis, unspecified, I42.9 - Cardiomyopathy, unspecified, I50.9 - Heart failure, unspecified, M79.89 - Other specified soft tissue disorders B Type Natriuretic Peptide Today D86.9 - Sarcoidosis, unspecified, I42.9 - Cardiomyopathy, unspecified, I50.9 - Heart failure, unspecified, M79.89 - Other specified soft tissue disorders Basic Metabolic Panel Today D86.9 - Sarcoidosis, unspecified, I42.9 - Cardio myopathy, unspecified, I50.9 - Heart failure, unspecified, M79.89 - Other specified soft tissue disorders Liver Panel Today D86.9 - Sarcoidosis, unspecified, I42.9 - Cardiomyopathy, unspecified, I50.9 - Heart failure, unspecified, M79.89 - Other specified soft tissue disorders Angiotensin Converting Enzyme Today D86.9 - Sarcoidosis, unspecified, I42.9 - Cardiomyopathy, unspecified, I50.9 - Heart failure, unspecified, M79.89 - Other specified soft tissue disorders Erythrocyte Sedimentation Rate Today D86.9 - Sarcoidosis, unspecified, I42.9 - Cardiomyopathy, unspecified, I50.9 - Heart failure, unspecified, M79.89 - Other specified soft tissue disorders PFT pulmonary function test Today D86.9 - Sarcoidosis, unspecified Medications: New melatonin 5 mg PO BEDTIME PRN 30 tabs 6RF sleep 30 days Discontinued hydroxychloroquine Discontinued Reason: Doctor's Order 100 mg PO BID 60 tabs 6RF Coding Level of Care Code Est Pt Level 4 (43624) Complex EM visit Add On G2211 Diagnoses Sarcoid D86.9 Moderate persistent asthma without complication J45.40 Asthma complication type: uncomplicated Asthma persistence: persistent Asthma severity: moderate JES (obstructive sleep apnea) G47.33 Cardiomyopathy, unspecified type I42.9 Cardiomyopathy type: unspecified Pulmonary nodules R91.8 Time Spent (min) 17
--- OUTSIDE RECORDS SUMMARY | 2025-02-02 12:02 | XMS_ITS | Continuity of Care Document ---
Author Organization [facility] [address] [place] [address] Phone [phone] Care Team Providers Care Lung Gun Operator Name Role Phone Stepan Mancia M.D. Care Team Information Re ceiver [phone] Tami Ziegler M.D. Care Team Information Powered Bridge Specialist [phone] Problems Active Problems Provider Date Asthma Stepan Mancia M.D. Onset: 1 Sarcoidosis Stepan Mancia M.D. Onset: 1 Obstructive sleep apnea syndrome Stepan johnson M.D. Onset: 05/04/2022 Essential hypertension Stepan Mancia M.D. O nset: 05/04/2022 Multinodular goiter Stepan Mancia M.D. Onse t: 06/23/2022 Hyperlipidemia Stepan Mancia M.D. Onset: 1 08/27/2022 Social History Type Date Description Comments Sex Female Sex Unknown Tobacco Use Start: Unknown Never Smoked Cigarettes Smoking Status Reviewed: 12/08/24 Never Smoked Cigaret bry ETOH Use Denies alcohol use Allergies and adverse reactions Description No Known Drug Allergies Medications Active Medications SIG Qnty Indications Order ing Provider Date Atorvastatin Gupxxkq26yg Tablets 1 tablet by mouth in the evening 90tabs Stepan Mancia M.D. 12/11/[address] 1 by mouth every day 90tabs Stepan Mancia M.D. 12/05/2022 Hydrocortisone2.5% Cream apply twice a day to affected area as needed 30gm Stepan Mancia M.D. 07/10/2022 Oxybutynin Chloride ER10mg Tablets ER 24HR Take 1 Tablet By Mouth Once Daily as Directed 90tabs Stepan Mancia M.D. 05/04/2022 Allhsljrw90ro Tablets 1 by mouth every day Stepan Mancia M.D. 05/04/2022 Metoprolol Succinate ER25mg Tablets ER 24HR Take 1 Tablet By Mouth Every Day Before Breakfast Unknown Albuterol Sulfate VUI576(90Base) mcg/Act Aerosol Jose MNaldo Vital Signs Date Vital Result Comment 12/08/2024 10:36am BP Systolic 140 mmHg BP Diastolic 80 mmHg Heart Rate 72 /min Height 59 inches 4'11 Weight 148.25 lb BMI (Body Mass Index) 29.9 kg/m2 Results Test Acquired Date Facility Test [...] Comment: TNP Urinalysis, Complete 12/10/2023 [facility] [place] 1.023 1.005-1.03 0 pH 6.0 5.0-7.5 Urine-Color [...] 1.4-7.0 Lymphs (Absolute) 1.5 x10E3/uL 0.7-3.1 Monocytes(Absol huslia) 0.4 x10E3/uL 0.1-0.9 Eos (Absolute) 0.5 x10E3/uL High 0.0-0.4 Baso (Absolute) 0.0 x10E3/uL 0.0-0.2 Immature Granulocytes 0 % Not Estab. Immature Grans (Abs) 0.0 x10E3/uL 0.0-0.1 NRBC TNP Hematology Comments: TNP TSH+Free T4 12/10/2023 [facility] T4,Free(Direct) 1.10 ng/dL 0.82-1.77 TSH 3.420 uIU/mL 0.450-4.50 0 TSH With Reflex To FT4 01/25/2023 [facility] TSH With Reflex To FT4 3.86 uIU/mL (0.4-4.2) Comprehensive Metabolic Panl 12/05/2022 [facility] Glucose 86 mg/dL (70-99) BUN [...] 3M2 2 Complete Abc With Diff 12/05/2022 [facility] WBC 6.2 K/MM3 (4.0-11.0) RBC [...] K/MM3 (1.3-7.0) Lymph # 1.9 K/MM3 (0.8-3.1) Isabella# 0.4 K/MM3 (0.4-0.9) Eo # 0.3 K/MM3 (0.0-0.4) Baso # 0.0 K/MM3 (0.0-0.1) Abs. Imm Gran 0.0 K/MM3 Neut 57.9 % (44-76) Lymph 30.0 % (15-43) Monocyte 6.0 % (4.5-10.5) Eo 5.3 % (0-6) Baso 0.6 % (0-2) Imm Gran 0.2 % Order 12/05/2022 Inhouse EKG <pending> D-Dimer 09/01/2022 [facility] D-Dimer 0.93 mg/LFEU (<1.01) 3 1 Microscopic was mj cated and was performed. 2 Creatinine based est imated glomerular filtration (eGFR) in adults is calculated using the [employer] recommended 2020 CKD-EPI equation. Estimates GFR from serum creatinine, age and sex. 3 The boat captain rec ommends that a d-Dimer value of <0.5 FEU mg/L can be used in conjunction with clinical criteria to help exclude Deep Vein Thrombosis (DVT) and/or Pulmonary Embolism (PE) in patients with a low pretest probability. Procedures Date Code Description Status 12/05/2022 82884 Electrocardiogram Complete C ompleted 12/01/2022 NSHOWOFF No Show Office Visit Complet ed Medical Devices Description No Information Available Encounters Type Date Location Provider Dx Diagnosis Office Visit 01/26/2025 1:18p Main Office Stepan Mancia M.D. J45.909 Unspecified asthma, uncomplicated I10 Essential (primary) hypertension Assessments Date Code Description Provider 01/26/2025 J45.909 Asthma Stepan johnson M.D. 01/26/2025 I10 Essential (primary) hyperten uriah Stepan Mancia M.D. Plan of Treatment Future Appointment(s):* 06/08/2025 10:30 am - Stepan Mancia M.D. at Main Office 12/08/2024 - Stepan Mancia M.D.* R07.9 Chest pain * D86.9 Sarcoidosis * J45.909 Asthma Functional Status Description No Information Available Mental Status Description No Information Available Referrals Refer to Dr Reason for Referral Status Appt [facility] Cardiology (New Patients) SARCOIDOSIS O F THE HEART Closed [address] [place], [place] [id number] [phone] Tami Ziegler M.D. LEFT LOBE THYROID NO DULE . SUSPICIOUS CANCER ON AFIRMA Closed 09/01/[address] [place] [address] (Notes Only) [place], [place] [id number] [phone]
--- OUTSIDE RECORDS SUMMARY | 2025-02-02 12:02 | XMS_ITS | Data Portability ---
Author Organization [facility], [facility] [place] Address [address] [place] [address] Assessment Encounter Date Assessment Date Assessment LastModified [...] by me and is located in the patient s chart. Examination: The patient is well [...] side only. Strength and sensation intact otherwise. Re exes normal. No ankle clonus. CT scan reveals multilevel degenerative findings with moderate central stenosis at L3-4 and severe foraminal stenosis at L4-5 and L5-S1 on the right correlating with right leg symptoms. Impression/Plan: increased low back pain due to muscle strain recently about a week ago. Recommend heat, rest and NSAIDs as nneeded. Leg pain improved. Continue home exercise program. Follow-up if needed. [employer] speech recognition ecosystem ecology professor software was used to create portions of this document. An attempt at proofreading has been made to minimize errors. Please call for corrections. [email or web address] Not available 10/15/2023 13:13:44 10/27/2024 10/27/2024 I am seeing the patient today under the supervision of Dr. Cleaning who was available but who did not see the patient. HPI: Patient presents for follow-up regarding low back pain. Symptoms are the same. The patient states she recently re-developed increased low back pain when bending to do something about a week ago. Seems to be improving steadily. Denies radiating leg pain. Still having difficulty with the right knee but holding off on surgery for now.. Denies bowel or bladder dysfunction. TREATMENTS: Bed rest, activity modification, home exercise core strengthening lumbar stabilization program, bracing, heat/ice and OTC Tylenol/NSAIDs. Lidocaine patches help Past family, medical, social history and review of systems has been reviewed, updated and signed by me and is located in the patient s chart. Examination: The patient is well [...] side only. Strength and sensation intact otherwise. Re exes normal. No ankle clonus. CT scan reveals multilevel degenerative findings with moderate central stenosis at L3-4 and severe foraminal stenosis at L4-5 and L5-S1 on the right correlating with right leg symptoms. Impression/Plan: ILumbar radiculitis. She doesn't want surgery. Recommend PT lumbar program. L:idocaine patches prescribed. Risks and benefits reviewed. Follow up arranged [facility] speech recognition ecosystem ecology professor software was used to create portions of this document. An attempt at proofreading has been made to minimize errors. Please call for corrections. [email or web address] Not available 10/27/2024 15:03:09 Plan of Treatment Reminders Order Date Submit Date Provider Last Modified By Organization Details Last Modified Time Details Appointments None recorded. Lab None recorded. Referral physical therapist referral - Evaluate & Rx Lumbar Stabiliza tion Program 2024 025 [email or web address] Not available 5 07:19:55 Procedures None recorded. Surgeries None recorded. Imaging XR, wrist, 2 view - 2v lt tmj, f/u, rm 117 2024 025 [email or web address] [facility], [address], [place], [address], 5 08:26:14 XR, hip + pelvis, bilateral , 2 view - new pt 2 views bilateral hip rm 120 2023 024 [email or web address] [facility], [address], [address], [place], [address], 4 15:59:47 Medication Orders lidocaine 5 % topical patch 2024 025 [email or web address] [facility] [address] [place], [address], 5 07:19:55 meloxicam 15 mg tablet 2023 024 [facility], [address] [place], [address], 4 16:46:06 Patient TargetsNo targets recorded. Patient InstructionsNo instructions recorded. Reason for Referral Physical Therapist Referral for Low back pain Evaluate & RxLumbar Stabilization Program Referring Physician: Andria Pizarro, Orthopedic Surgery, Encounter Date: 10/27/2024 Results Created Date Observation Date Name Description Value Unit Range Abnormal Flag Note LastModifiedBy Organization Detail LastModifiedTime 03/22/20 24 04/27/2020 imagi ng/di agnos tic [...] a4ajBk vP9nXo QUaueC m3YtLR FvZlgJ JJ8mAn HZtai3 0g6912 AC0Kqa n%2BAU 6KhKiQ trMwF INTERFACE [facility] [address], [place], [address], 04/01/2024 16:29:01 04/01/20 24 04/01/2024 XR, hip + pelvi s, bilat eral, 2 view [email or web address] ?Encry pted=s hAaTro YD8dLq bEUv6g %2BXZw aYqtaq 0bqfl% 2Fg9IQ a4ajBk vP9nXo QUaueC m3YtLR FvZlgJ JJ8mAn HZtai3 6g6704 AC0Kqa n%2BAU 6KhKiQ trMwF INTERFACE [facility] [address], [place], [address], 04/01/2024 16:29:03 10/14/19 25 10/13/2024 XR, wrist , 2 view [email or web address]:/ [email or web address] ?Encry pted=s hAaTro YD8dLq bEUv6g %2BXZw aYqtaq 0bqfl% 2Fg9IQ a4ajBk vP9nXo QUaueC m3YtLR FvZlgJ JJ8mAn HZtai3 1l8984 AC0KqY nuFU6a jKiQtr MwF INTERFACE [facility] [address] [facility] [address], [place], [address], 10/13/2024 09:36:41 10/14/19 25 10/13/2024 XR, wrist , 2 view [email or web address]:/ [email or web address] ?Encry pted=s Pan YD8dLq bEUv6g %2BXZw aYqtaq 0bqfl% 2Fg9IQ a4ajBk vP9nXo QUaueC m3YtLR FvZlgJ JJ8mAn HZtai3 2d1955 AC0KqY nuFU6a jKiQtr MwF INTERFACE [facility] [address] [address], [place], [address], 10/13/2024 09:36:43 Result Notes Documentation Provider Name and Address Organization Details Recorded Time Xr, Hip + Pelvis, Bilateral, 2 View : [email or web address] Encrypted=keEeKmsBT0qTivV Uv6g%9BSDeyDvdil5blrn%2Fg 1ZWb9zbCukO3gUhJZuodUq7Co CYQtOkkNHY4wYuGVlil72l552 7AM9Qidt%1KCH0UyIaImvFuA Not Available [facility] 04/01/2024 16:2 9:02 Xr, Hip + Pelvis, Bilateral, 2 View : [email or web address] Encrypted=vfLkZqsMC8gZowN Uv6g%8ZKXhjWksxy2falg%2Fg 8KXt9csHiyT9oWeZZnifTl2Cx KWCyUcaYBT3sXnWHsnq63e563 3JY7Lyju%9LYY0DcMjNorBpC Not Available [facility] 04/01/2024 16:2 9:04 Xr, Wrist, 2 View : [email or web address] Encrypted=ohCqCuuUP3jIkqT Uv6g%0SKYkwKkzoh7wqqg%2Fg 3NRh8gsCnbI1sFrSYfmcLn9By CRKcQxfYPG3iFsDSnpf24a773 5TI3SmVhfNY2wfAuWjxEkH Not Available [facility] 10/13/2024 09:36: 41 Xr, Wrist, 2 View : [email or web address] Encrypted=pzIsDlaEJ2vIltZ Uv6g%1GWFxvHowgu4kihs%2Fg 9UBk4ddEpaK7cQyRHusyFe4At VJKvFgnLNI8uKlVPohq95i105 1RX1UoPixNP8uaUiDtoRkE Not Available [facility] 10/13/2024 09:36: 44 Problems Name Problem SNOMED Code Status Onset Date Resolution Date Notes Provider Name and Address Organization Details Recorded Time Low back pain 220780661 Active 2020 Status : 'A'; Not Available [facility] 4 11:58:04 Osteoarthr itis of right knee joint 3330509576348 00 Active 2020 Status : 'A'; Not Available [facility] 4 11:58:04 Problem Notes None recorded. Medical Equipment None Reported. Allergies Allergen ID Allergen Name Allergen Category Reaction Reaction Severity Criticality Documentation Date Start Date Code Code System Note Provider Name and Address Organization Details Recorded Time 159137 Adhesive Bandages medicatio n Not available Not available Not available 09/24/20232021 82706 UNK Not Available [facility] 16:24:33 850063 latex gloves medicatio n Not available Not available Not available 09/24/20232014 03606 UNK Not Available [facility] 16:24:33 Medications Name Sig Start Date Stop [...] active Not Available Not Available Not Available ibuprofen 800 mg tablet TAKE 1 TABLET BY MOUTH EVERY 8 HOURS. active Not Available Not Available No t Available metoprolol succinate ER 50 mg tablet,exte nded release 24 hr TAKE 2 TABLETS BY MOUTH EVERY DAY active Not Available Not Available No t Available meloxicam 15 mg tablet TAKE 1 TABLET BY MOUTH EVERY DAY DIRECTED active Not Available Not Available No t Available lidocaine 5 % topical patch APPLY 1 PATCH BY TOPICAL ROUTE ONCE DAILY (MAY WEAR UP TO 12HOURS.) 2024 active Not Available Not Available Not Avai lable hydrocortis one 2.5 % topical cream active [...] ued'; Not Available Not Available Not Available hydroxychlo roquine 100 mg tablet TAKE 1 TABLET BY MOUTH TWO TIMES A DAY active Not Available Not Available No t Available Vitals Date Recorded Body height Body mass index (BMI) Body weight Provider Name and Address Organization Details Last Updated DateTime 10/13/2024 149.86 cm 30.3 kg/m2 71208.86 g ARIADNE FELDER [place] - [facility] 10/13/2024 09:11:28 Date Recorded Body height Body mass index (BMI) Body weight Provider Name and Address Organization Details Last Updated DateTime 10/15/2023 149.86 cm 30.7 kg/m2 99694.04 g Kaity salazarwm [facility] 10/15/2023 11:50:04 Date Recorded Body height Body mass index (BMI) Body weight Provider Name and Address Organization Details Last Updated DateTime 10/27/2024 149.86 cm 30.3 kg/m2 23983.86 g Sandi nid [facility] 10/27/2024 10:08:36 Date Recorded Body height Body mass index (BMI) Body weight Provider Name and Address Organization Details Last Updated DateTime 04/01/2024 149.86 cm 30.3 kg/m2 88355.86 g Staciekerry Ordaz [facility] 04/01/2024 16:21:29 Social History Question Answer Notes LastModified by Organizat ion Details LastModified Time Tobacco Smoking Status Never Smoker Sandi juarez [facility] 10/27/2024 10:08:26 What Is Your Relationship Status? Single [email or web address] Information not available 10/27/2024 Sex: Unknown Functional Status Question Answer Note LastModified by Organizat ion Details LastModified Time Do you use any illicit or recreational drugs? No [email or web address] Information not available 10/27/2024 Do you or have you ever used any other forms of tobacco or nicotine? No [email or web address] Information not available 10/27/2024 Do you or have you ever used e-cigarettes or vape? Never used electronic cigarettes [email or web address] Information not available 10/27/2024 Mental Status None recorded. Family History Nothing Reported. Medical History No medical history recorded. Gynecological HistoryNo gynecological history recorded. Obstetrics History GPAL:G 0 P 0 0 0 0 Past Encounters Encounter ID Performer Location Encounter Start Date Encounter Closed Date Diagnosis/Indication Diagnosis SNOMED-CT Code Diagnosis ICD10 Code Diagnosis Note [id number] [facility] [address] [place] [address] 10/15/2023 10:55:35 11/03/2023 16:17:28 Low back pain 957450056 M54.50 [id number] Ezra Mehta PA-C [facility] [address] [place] [address] 04/01/2024 16:13:03 04/22/2024 15:59:47 Pain of bilateral hip joints 5407762776 4569349 M25.551 M25.552 Trochanter ic bursitis of left hip 3718833907 07383 M70.62 Trochanter ic bursitis of right hip 1316036278 25110 M70.61 [id number] MD ELLIOTT Altman [facility] [address] [place] [address] 10/13/2024 09:00:48 10/31/2024 09:54:31 Pain of left wrist 0707296531 32115 M25.532 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 24525148 M18.12 [id number] [facility] - [facility] [address] [place] [address] 10/27/2024 09:50:47 11/13/2024 13:10:39 Low back pain 135470707 M54.50 Health Concerns Section Related Observation LastModified by Organization Detai ls LastModified Time None Recorded Concern Status LastModified by Organization Details LastModified Time None Recorded Advance Directives Directive None Recorded Payers Insurance Date Sequence Insurance Name Policy Number Policy Willis Covered Member ID Willis Member ID Guarantor Name 10/27/2024 1 [place] [employer] [place] [id number] Sharon Woods 10/15/[address] [facility] Sharon Woods [id number] Sharon Woods 11/13/2024 2 [facility] [employer] (MEDICARE SUPPLEMENT) [id number] Sharon fulton [id number] Sharon Woods Notes Date Note Type Note Provider [...] reviewed, updated and is located in the patient s chart. Examination:Well appearing 69-year-old female in [...] loosening. Slight heterotopic ossification noted. No fracture. Impression:Bilateral hip trochanteric bursitis Plan:We discussed nature the diagnosis as well as treatment for this including anti-inflammatories medications, physical therapy, cortisone injection. Patient opted for at home PT program which we went over specific exercises to focus on as well as prescription anti-inflammatories medication. Patient given a prescription today for meloxicam which she will utilize once daily in the morning with food. Advised her not utilize any other anti-inflammatories medications while she has taken this. Patient can follow-up with us on an as-needed basis. Can come back for cortisone injections as-needed. At this time all patient questions and concerns were answered today. Ezra Mehta PA-C [address] [facility] [address] [facility] [address], [place], [address], [facility] 04/03/2024 15:40:25 10/13/2024 text/html Diagnosis: 1. 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 Flexor tenosynovitis right middle finger resolved with 100 The patient presents at her request. She is describing severe pain at the base of her left thumb. She has not found corticosteroid injections to be helpful. Past family, medical, social history and review of systems has been reviewed, updated and is located in the patient s chart. Examination: Healthy appearing patient in no apparent distress. Alert and oriented. Decreased range of motion wrist and digits on the left versus the right. Provocative testing the right wrist reveals no instability. Provocative testing left wrist reveals markedly positive first CMC grind and compression test. No atrophy in either upper extremity. Brisk capillary refill in all digits X-rays ordered, obtained, and reviewed today at [facility]: PA and lateral of the left TM joint shows severe joint space narrowing, sclerosis and osteophyte production. Plan: At the patient's request I described the nature of first CMC arthroplasty with tendon transfer and its risks including infection, injury to blood vessels, tendons, nerves, failure of the procedure and stiffness of her thumb. All her questions were answered. She will consider her options and contact me if she has questions or she wishes to proceed with surgery. In the interim I provided her with a Velcro thumb spica splint to be worn at night. She was instructed on its application use. The patient has weakness and instability of their extremity which requires stabilization for this semi-rigid/rigid orthosis to improve their function. Verbal and written instructions for the use and application of this item were given. Patient was instructed that should the brace result in increased pain, decreased sensation, increased swelling or an overall worsening of their medical condition, to please contact our office immediately Price Anne MD [address], [place], [address], [facility] 10/13/2024 12:24:25 OBGyn Episode No OBEpisode recorded.
== END 2025-02-02 11:32 | disposition home or self-care (01) ==
LOC: HO.HPS 11:00
PROVIDERS: PCP Internal Medicine Endocrinology, Diabetes & Metabolism; Visit Provider Hospitalist
DX: D86.9 Sarcoidosis, unspecified (principal); J45.40 Moderate persistent asthma, uncomplicated; G47.33 Obstructive sleep apnea (adult) (pediatric); I42.9 Cardiomyopathy, unspecified; R91.8 Other nonspecific abnormal finding of lung field
CPT/HCPCS: 99214; G2211

== ENCOUNTER 2025-04-17 15:47 | Outpatient (REF) | payer MEDICARE, OTHER, SELFPAY ==
--- NOTE | 2025-04-17 15:55 | PFT_ITS ---
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 Decreased expiratory reserve volume suggests extrathoracic restriction likely secondary to abdominal obesity. Combination of restrictive ventilatory defect diffusion capacity suggests underlying pulmonary parenchymal disease. MTDD
[2025-04-17 16:37] VITALS: PULSE 72; O2SAT 98
== END 2025-04-17 15:48 | disposition home or self-care (01) ==
LOC: HO.RESP 15:47
PROVIDERS: PCP Internal Medicine Endocrinology, Diabetes & Metabolism; Visit Provider Hospitalist
DX: D86.9 Sarcoidosis, unspecified (principal)
CPT/HCPCS: 94010; 94640; 94727; 94729

== ENCOUNTER → 2025-04-17 15:55 | Outpatient (BNV) | payer MEDICARE, OTHER, SELFPAY | PROVIDERS: PCP Internal Medicine Endocrinology, Diabetes & Metabolism; Visit Provider Internal Medicine Pulmonary Disease | DX: J98.4 Other disorders of lung (principal) | CPT/HCPCS: 94060; 94727; 94729 ==

== ENCOUNTER 2025-05-15 10:45 | Outpatient (AMB) | payer MEDICARE, OTHER, SELFPAY ==
[2025-05-15 10:47] VITALS: BP 150/74; PULSE 66; O2SAT 96; BMI 31.1
--- NOTE | 2025-05-15 10:47 | A.OFFVIS_ITS ---
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 During the last visit the patient was having some chest discomfort. Her EKG was abnormal and her cardiac enzymes were elevated. She was admitted to the hospital in transfer to [facility]. There, she did have a cardiac catheterization demonstrated no significant CAD which is reassuring. Ultimately, underwent an MRI of the heart demonstrating no significant infiltrative cardiac disease to suggest cardiac sarcoid. Also, in the past she did have a cardiac PET that was negative for any cardiac sarcoid. 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 Current the patient has been feeling better. Her shortness of breath has improved. no evidence of active cardiac sarcoid at this time. will recheck her Champ level in the next few weeks and have to Champ level is elevated we will talk about repeating her cardiac PET scan. 10/17/2022 the patient is overall doing better. Her cough is better and her breathing is better. She does stop the methotrexate and she did take the prednisone and also the Vantin. She also started the mycophenolate. However, after reading the side effects in the adverse issues potentially with that she decided to stop it altogether. Clinically the patient is feeling better and she opts to avoid any immunosuppressants at this time specially since she is going to need surgery in a couple months. I did agree with her as long she is doing okay. If her symptoms were to worsen we can also readdressed. I do believe that she was having a reaction to the methotrexate at the end. A or if anything indeed a could have been an infectious process. Do a way to know for sure is to repeat the CT scan in several months after her surgery in order to see if there is any progression of the airspace disease and nodular densities. If indeed she becomes symptomatic we can address that earlier. But right now will try to minimize her immune suppression in view of her other ongoing issues. Clinically patient is doing better. She is using respiratory therapy. 02/19/2023 the patient is here for a pulmonary follow-up visit. The patient's breathing seems to be better overall. She stop the methotrexate and has been off the prednisone. She also completed the antibiotics. The patient has been noticing lower extremity edema which is new for her. Moderate in the mouth. The patient did have a Doppler ultrasound the ruled out DVT. She no longer has a street light repairer helper. She was being followed by Cardiology program at [facility] specially with when she was diagnosed with cardiac sarcoidosis. The patient has not had an echo in more than a year. Will go ahead and start her on diuretics because appears to be volume overloaded will request blood work and also request an echocardiogram. The patient needs to be stab which with a new street light repairer helper at this time. Hold off any treatments for sarcoid at this time. Although depending on the results we can talk about potential therapies. She tried immunomodulators without any significant improvement if anything worsening symptoms. I do believe that if she has any evidence of active sarcoidosis we can consider Remicade as a very good option for her. 05/21/2023 the patient is here for a pulmonary follow-up visit. Overall she is feeling better. She continues on the Lasix 20 mg daily. Although she has noticed some increased lower extremity swelling since we last spoke. Should go ahead increase it to 2 tablets for the next few days and then go back down to 20 mg daily. She did have an echocardiogram demonstrating significant asymmetric hypertrophy of the left ventricle. She will be following up with Cardiology soon. She is also going to have a pacemaker check as well. We did review her blood work which is reassuring. The inflammatory markers have subsided significantly. At this point the patient does not need any therapy for the sarcoid as appears to be dormant. She continues use respiratory therapy as needed. Recently she did have a upper respiratory illness and she was able to clear without any medications prescribed. Clinically the patient is doing better will follow-up in 4-6 months. 08/20/2023 the patient is here for a pulmonary follow-up visit. The patient continues to have difficulties. Complaining of episodes of tachycardia palpitations. In addition to that she is having some lower extremity edema. She is responding well to the Lasix. She was supposed to see Cardiology but since she is already established at [facility] they would not see her here in her situation being so complex. We did again review her echocardiogram demonstrating the significant asymmetric hypertrophy concerning. The patient does have an earth sciences professor at [facility] that prescribes her metoprolol. She is describing episodes of tachycardia and palpitations so therefore since she has taking a small dose I will go up on it to 25 mg. She should be followed up with him soon and if he thinks his reasonable he can continue prescribing the higher dose if he does not then he can bring it down to the previous dose. The patient will have blood work as well in the meantime to make sure that she can not tolerate the additional diuresis. From a pulmonary standpoint she continues to do fairly well though still complaining of some shortness of breath [id number] severity. Her respiratory exam is clear. She is still waiting to have knee surgery and now having issues with surgeries that she is going to further require. Therefore rather not place her on any immunosuppressant therapy for the purpose of postoperative healing. No evidence of any active sarcoid at this time. 11/26/2023 the patient is here for a pulmonary follow-up visit. Patient is concer frank that she is developing worsening she did finally see Cardiology at [facility]. She is scheduled to undergo an MRI of the heart to assess for any cardiac sarcoid. She was told to stop the Lasix. She stopped it after 3 days she noticed significant swelling of her lower extremity and she became very concerned. She started noticing some decrease appetite and early satiety. The patient did restart taking the Lasix. I did recommend she can talk to her street light repairer helper regarding now. Once she gets her MRI of the heart I will go ahead and review to see if there is any active sarcoid. If the patient does have active sarcoidosis then will have to see about starting immunomodulator therapy or biologic therapy. She has been on multiple medications in the past. I do believe that Remicade will be a better option for her moving forward if she has any activity. In the meantime she will take additional diuresis today. 03/12/2024 the patient is here for a pulmonary follow-up visit. Overall the patient has been doing fair. She did have a cardiac MRI. No evidence of any cardiac sarcoid evident on the MRI which is reassuring. Although she does have a left ventricular outflow tract. Because of the significant she was referred to [facility] for further evaluation likely with Cardiothoracic surgery. From a sarcoid standpoint the patient appears to be in remission no evidence of any active disease. The patient does have daytime drowsiness. She does have an invalid [place] score of 06/15. She had 1 episode where she woke up short of breath and she checked her oxygen level was when was in the low 80s. She became concerned. The oxygen did come back up. Will go ahead and request a sleep study this time to further address the question sleep apnea. In the meantime no evidence of any active sarcoid so no need for any systemic therapies at this time. 06/17/2024 the patient is here for a pulmonary follow-up visit. She did have her evaluation [facility]. She was not very impressed. She is not clear exactly what took place. She needs to follow-up with her local street light repairer helper to make signs of her visit and to review the impression from [facility]. For now the patient did have a repeat home sleep study. She does have moderate to severe sleep apnea with significant hypoxia. She needs to use her APAP. She did start using it. Her AHI using her machine is down 2 episodes per hour. Her pressure is adequate and her supplies are good. She will continue to use her CPAP at this time. In the meantime she is still having dyspnea on exertion. [id number]-vk-[id number] severity. It is not clear of her sarcoidosis is active. Will go ahead and request additional blood work and also a CT scan to address her pulmonary nodules into see this any progression of her interstitial lung disease to suggest sarcoid activity. If indeed she has active sarcoid she needs to start treatment. She also needs follow-up Cardiology to figure out what the next step is regarding the hypertrophic cardiac changes. 09/22/2024 the patient is here for pulmonary follow-up visit. She continues to have difficulties in general. She has significant arthralgias primarily of her hands and elbows. We did do blood work including connective tissue disease workup and she had an elevated PHUONG but was mild and everything also pretty negative. She does have evidence of osteoarthritis. The patient has been on meloxicam. She also takes Tylenol. Be reasonable to see if she responds to Plaquenil. Because of debilitation of her hands have gotten to the point that she can not even open the water chamber on her CPAP and therefore she has a hard time using it. So will trial her on the Plaquenil to see if this provides her relief in order for her to be able to do her activities of daily living. The patient has tried other alternative medicines including turmeric and glucosamine with out any significant improvement. As far as her cardiac status apparently she is doing okay. She does not have any further follow-up with Cardiology. And as far as her sarcoid seems to be stable at this time. For CPAP we did talk about alternative therapies including an oral mandibular device. If she continues to struggle with her CPAP then will have to refer her to a dentist in order to see if we can get her mandibular device. The patient does have severe sleep apnea already established on her sleep study. She can not sleep on her side because of her arthritic issues not allowing her and also her pacemaker. She has been sleeping on a recliner for now. We did go for brief walking oximet ry the patient did very well maintaining a pulse ox of 96%. 02/02/2025 the patient is here for pulmonary follow-up visit. Continues have multiple myalgias and arthralgias. The Plaquenil was not helpful. She stopped it. She has been noticing increasing lower extremity edema. She has also gained weight. Has also noticed some elevated blood pressures and feels like her heart is working a little hard. I did confirm that she does have significant volume overload status at this time. Hopefully with some diuresis her blood pressure will come down and her volume status would improve. She is g oing to weigh herself closely. She will follow-up with the street light repairer helper as well. This is not to February. In the meantime she continues use the PAP therapy. The PAP therapy continues to be affecting beneficial. AHI is down to about 1. She does use more than 4 hours a night. She still struggles with sleep. She really does not want to have any prescriptions sleep medications. She will try melatonin though. I will send a script to the pharmacy. As far as laboratory she is going to get blood work now. CT scan her last CT scan was back in July 2024 so therefore does not need any imaging studies right now. Will have her come back in around 3-4 months with PFTs. 05/15/2025 the patient is here for pulmonary follow-up visit. Overall she is doing okay. She is having episodic chest pain. Right now she does not have any. She did follow-up with cardiology and she is scheduled for an echo and also a stress test. In the meantime she also taking Pepcid with good relief as far as if his reflux related. From a breathing standpoint she is doing okay although complains of dyspnea on exertion moderate severity. She also has musculoskeletal pains and swelling of the lower extremities. The patient did undergo pulmonary function studies which I personally reviewed demonstrating a [id number] restriction of her lung capacity. We did review her CT scan that she had back in July 2024 which she has some interstitial changes but fairly minimal. She is scheduled to have a repeat CAT scan in July 2025. She will follow up sometime in next year if she has not issues prior to this she can always call for an earlier assessment. Also to note she is using her CPAP. CPAP therapy has been affecting beneficial and she does try to use it more than 4 hours a night. [facility] Medical History (Updated 03/12/24 @ 10:58 by Naldo Salguero MD) Limb swelling Pneumonia Pulmonary nodules Cardiomyopathy NSTEMI (non-ST elevated myocardial infarction) JES (obstructive sleep apnea) Asthma Sarcoid Family History Other HTN (hypertension) Social History Patient Tobacco Use Status: Never used Tobacco Review of Systems Const Reports daytime sleepiness, Reports fatigue, Denies headache(s), Denies night sweats and Reports weight gain ENT Denies change in voice, Denies headache(s) and Denies lip swelling Card Denies chest pain, Reports leg edema, Denies dyspnea, Reports dyspnea on exertion and Reports orthopnea Resp Denies chest congestion, Reports cough, Denies excessive phlegm production, Denies dyspnea and Reports dyspnea on exertion GI Denies abdominal pain Musc Reports as per HPI, Reports deformity, Reports arthralgias, Reports joint swelling, Reports limited range of motion and Denies tingling Neuro Denies Neuro-related abnormal movements, Denies headache(s) and Denies tingling Psych Denies no additional complaints Endo Reports fatigue Gucci/Lymph Denies easy bleeding and Denies lymphadenopathy Aller/Immun Denies lip swelling Physical Exam Vital Signs: Last Vital Signs Pulse 66 05/15/25 10:47 BP 150/74 H 05/15/25 10:47 Pulse Ox 96 05/15/25 10:47 Oxygen Delivery Method Room Air 05/15/25 10:47 BMI result Body Mass Index 31.1 Const General: alert HEENT Head: Yes normocephalic Neck Neck: Yes normal visual inspection, Yes full ROM and Yes no lymphadenopathy Chest Chest palpation & inspection: normal inspection of the chest Resp Effort & Inspection: normal respiratory effort Auscultation: diminished lung sounds Cardio Rate: regular rate Rhythm: regular rhythm Heart sounds: S1 normal heart sound present, S2 normal heart sound present and Murmur heart sound present GI Palpation (GI): Soft to palpation and nontender Auscultation: normal bowel sounds Skin General skin exam: rashes and/or lesions noted Extrem General: Yes edema Office Procedures Flu Questionnaire Does the patient have a severe egg allergy?: No Does the patient have severe life threatening allergies?: No Does the patient have a fever or illness today?: No Has the patient ever had Guillain-[place] Syndrome?: No Has the patient ever had any past reaction to a flu shot?: No Immunizations Fluarix [id number] (PF) 45 mcg (15 mcg x 3)/0.5 mL IM syringe Performing Provider: Naldo Salguero MD Performing Location: [facility] Pul[facility] Administered by: Linda Bhatti LPN on 05/15/25 14:15 Dose Route Admin Location Dispensed Lot Number Expiration Date NDC Buggy Driver 0.5 mL IM Right Deltoid 0.5 mL [id number] 01/19/26 56721-592-87 [employer] [facility] V[facility] Given Date VIS Provided VIS Publication Date 05/15/25 Single Vaccine 24 Eligibility Eligibility Date Funding Source Not [facility] Eligible 05/15/25 Private Administration Comments: Given by Naldo Salguero MD Assessment & Plan Assessment & Plan (1) Sarcoid: Code(s): D86.9 - Sarcoidosis, unspecified Category: Medical (2) Asthma: Code(s): J45.909 - Unspecified asthma, uncomplicated Category: Medical Qualifiers: Asthma complication type: uncomplicated Asthma persistence: persistent Asthma severity: moderate Qualified Code(s): J45.40 - Moderate persistent asthma, uncomplicated (3) JES (obstructive sleep apnea): Code(s): G47.33 - Obstructive sleep apnea (adult) (pediatric) Category: Medical (4) Cardiomyopathy: Code(s): I42.9 - Cardiomyopathy, unspecified Category: Medical Qualifiers: Cardiomyopathy type: unspecified Qualified Code(s): I42.9 - Cardiomyopathy, unspecified (5) Pulmonary nodules: Code(s): R91.8 - Other nonspecific abnormal finding of lung field Category: Medical Plan REC: continue APAP Cardiac MRI at [facility] - no sarcoid +LVOT continue diuresis as tolerated no remicade, only if +active sarcoid activity continue Breo continue singulair Continue Benzonates as needed ABIGAIL as needed diuresis as tolerated [place] CT chest 07/2025 F/U 3-4 months Orders: Orders Influenza [id number] Immunization 05/15/25 J45.40 - Moderate persistent asthma, uncomplicated Coding Level of Care Code Est Pt Level 4 (48120) Complex EM visit Add On G2211 Diagnoses Sarcoid D86.9 Moderate persistent asthma without complication J45.40 Asthma complication type: uncomplicated Asthma persistence: persistent Asthma severity: moderate JES (obstructive sleep apnea) G47.33 Cardiomyopathy, unspecified type I42.9 Cardiomyopathy type: unspecified Pulmonary nodules R91.8 Time Spent (min) 18
--- OUTSIDE RECORDS SUMMARY | 2025-05-15 12:32 | XMS_ITS | Data Portability ---
Author Organization [facility], [facility] [place] Address [address] [place] [address] Assessment Encounter Date Assessment Date Assessment LastModified [...] only. Strength and sensation intact otherwise. Re e xes normal. No ankle clonus. CT [...] Continue home exercise program. Follow-up if needed. [facility] speech recognition informatics pharmacist software was used to create portions of [...] only. Strength and sensation intact otherwise. Re e xes normal. No ankle clonus. CT scan reveals multilevel degenerative findings with moderate central stenosis at L3-4 and severe foraminal stenosis at L4-5 and L5-S1 on the right correlating with right leg symptoms. Impression/Plan: ILumbar radiculitis. She doesn't want surgery. Recommend PT lumbar program. L:idocaine patches prescribed. Risks and benefits reviewed. Follow up arranged [facility] speech recognition informatics pharmacist software was used to create portions of [...] tmj, f/u, rm 117 2024 025 [email or web address] [facility], [address], [place], [address], 5 08:26:14 XR, hip + pelvis, bilateral , 2 view - new pt 2 views bilateral hip rm 120 2023 024 essenger [facility], [address], [address], [place], [address], 4 15:59:47 Medication Orders lidocaine 5 % topical patch 2024 025 [email or web address] [facility] [address], [address] [place] [address], [address], 5 07:19:55 meloxicam 15 mg tablet 2023 024 BRYANT [facility] [address], [address] [place] [address], [address], 4 16:46:06 Patient TargetsNo targets recorded. Patient [...] a4ajBk vP9nXo QUaueC m3YtLR FvZlgJ JJ8mAn HZtai3 8x3020 AC0Kqa n%2BAU 6KhKiQ trMwF INTERFACE [facility] [address], [place], [address], 04/01/2024 16:29:01 04/01/20 24 04/01/2024 XR, hip + pelvi s, bilat eral, 2 view [email or web address]:/ [email or web address] ?Encry pted=s hAaTro YD8dLq bEUv6g %2BXZw aYqtaq 0bqfl% 2Fg9IQ a4ajBk vP9nXo QUaueC m3YtLR FvZlgJ JJ8mAn HZtai3 8q8930 AC0Kqa n%2BAU 6KhKiQ trMwF INTERFACE [facility] [address], [place], [address], 04/01/2024 16:29:03 10/14/19 25 10/13/2024 XR, wrist , 2 view [email or web address]:/ [email or web address] ?Encry pted=s hAaTro YD8dLq bEUv6g %2BXZw aYqtaq 0bqfl% 2Fg9IQ a4ajBk vP9nXo QUaueC m3YtLR FvZlgJ JJ8mAn HZtai3 9b3169 AC0KqY nuFU6a jKiQtr MwF INTERFACE [facility] [address] [facility] [address], [place], [address], 10/13/2024 09:36:41 10/14/19 25 10/13/2024 XR, wrist , 2 view [email or web address]:/ [email or web address] ?Encry pted=s Pan YD8dLq bEUv6g %2BXZw aYqtaq 0bqfl% 2Fg9IQ a4ajBk vP9nXo QUaueC m3YtLR FvZlgJ JJ8mAn HZtai3 8c2463 AC0KqY nuFU6a jKiQtr MwF INTERFACE [facility] [address] [address], [place], [address], 10/13/2024 09:36:43 Result Notes Documentation Provider Name and Address Organization Details Recorded Time Xr, Hip + Pelvis, Bilateral, 2 View : [email or web address] Encrypted=reDrXfwTO4yNbaA Uv6g%3HRHzgQzijt6evzy%2Fg 2YRp0dvQxhT9iPhWBjjbMx6Kq CKLeVjhCJM7sIwCCnyw09d994 4VH5Mciw%9KKN0KvOhVghMfU Not Available [facility] 04/01/2024 16:2 9:02 Xr, Hip + Pelvis, Bilateral, 2 View : [email or web address] Encrypted=kvEhScuYK8jXvlE Uv6g%1IRHoeKdvjy2rwyf%2Fg 6RQy4jnImnK2mXmHZambXo8Mr IMMkPetVCF0wCqZEiee17j728 3FT9Vjay%8COU7DwWmVzxEtF Not Available [facility] 04/01/2024 16:2 9:04 Xr, Wrist, 2 View : [email or web address] Encrypted=kcZlFfbOJ8pVtmC Uv6g%7ZGBuxCylwn9yusj%2Fg 6ZIf7lgBteA6kErOMxgbFv2Yj TAUwAmoRCN0hFhOJypq04r389 0ZF6GvLyyFW2clSfErfKwZ Not Available [facility] 10/13/2024 09:36: 41 Xr, Wrist, 2 View : [email or web address] Encrypted=ngYqRglVW8vCxsX Uv6g%9KDTrwQnktf6djuq%2Fg 1FGh1blWdsG4hMnTXryqYl6Th FTMyRtwCZK5rXxRNmzo03t517 1SX4PxMruLG6ozUjXyzWlP Not Available [facility] 10/13/2024 09:36: 44 Problems Name Problem SNOMED Code Status Onset Date Resolution Date Notes Provider Name and Address Organization Details Recorded Time Low back pain 187354265 Active 2020 Status : 'A'; Not Available [facility] 4 11:58:04 Osteoarthr itis of right knee joint 8343895517516 00 Active 2020 Status : 'A'; Not Available [facility] 4 11:58:04 Problem Notes None recorded. Medical Equipment None Reported. Allergies Allergen ID Allergen Name Allergen Category Reaction Reaction Severity Criticality Documentation Date Start Date Code Code System Note Provider Name and Address Organization Details Recorded Time 246636 Adhesive Bandages medicatio n Not available Not available Not available 09/24/20232021 Not Available [facility] 4 16:24:33 007653 latex gloves medicatio n Not available Not available Not available 09/24/20232014 Not Available [facility] 4 16:24:33 Medications Name Sig Start Date [...] Updated DateTime 10/13/2024 149.86 cm 30.3 kg/m2 49978.86 g ARIADNE FELDER [place] - [facility] 10/13/2024 09:11:28 Date Recorded Body height Body mass index (BMI) Body weight Provider Name and Address Organization Details Last Updated DateTime 10/15/2023 149.86 cm 30.7 kg/m2 35494.04 g Kaity hugginsab [facility] 10/15/2023 11:50:04 Date Recorded Body height Body mass index (BMI) Body weight Provider Name and Address Organization Details Last Updated DateTime 10/27/2024 149.86 cm 30.3 kg/m2 61056.86 g Sandi nid [facility] 10/27/2024 10:08:36 Date Recorded Body height Body mass index (BMI) Body weight Provider Name and Address Organization Details Last Updated DateTime 04/01/2024 149.86 cm 30.3 kg/m2 94404.86 g Stacie Deb [facility] 04/01/2024 16:21:29 Social History Question Answer Notes LastModified by Organizat ion Details LastModified Time Tobacco Smoking Status Never Smoker Sandi juarezmaicol gonzalez [facility] 10/27/2024 10:08:26 What Is Your Relationship Status? Single [email or web address] Information not available 10/27/2024 Sex: Unknown Functional Status Question Answer Note LastModified by Organizat ion Details LastModified Time Do you use any illicit or recreational drugs? No [email or web address] Information not available 10/27/2024 Do you or have you ever used any other forms of tobacco or nicotine? No [email or web address] Information not available 10/27/2024 Do you or have you ever used e-cigarettes or vape? Never used electronic cigarettes [email or web address] Information not available 10/27/2024 Mental Status None recorded. Family History Nothing Reported. Medical History No medical history recorded. Gynecological HistoryNo gynecological history recorded. Obstetrics History GPAL:G 0 P 0 0 0 0 Past Encounters Encounter ID Performer Location Encounter Start Date Encounter Closed Date Diagnosis/Indication Diagnosis SNOMED-CT Code Diagnosis ICD10 Code Diagnosis IMO Codes Diagnosis Note [id number] [facility] [address] [place] [address] 10/15/2023 10:55:35 11/03/2023 16:17:28 Low back pain 305032529 M54.50 [id number] Ezra Mehta PA-C [facility] [address] [place] [address] 04/01/2024 16:13:03 04/22/2024 15:59:47 Pain of bilateral hip joints 1944934983 3293896 M25.551 M25.552 [facility] bursitis of left hip 4728625662 56326 M70.62 [facility] bursitis of right hip 9107018273 74049 M70.61 [id number] MD ELLIOTT Altman [facility] [address] [place] [address] 10/13/2024 09:00:48 10/31/2024 09:54:31 Pain of left wrist 0148363609 57910 M25.532 335687 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 34724002 M18.12 [id number] [facility] [address] [place] [address] 10/27/2024 09:50:47 11/13/2024 13:10:39 Low back pain 359880882 M54.50 Health Concerns Section Related Observation LastModified by Organization Detai ls LastModified Time None Recorded Concern Status LastModified by Organization Details LastModified Time None Recorded Advance Directives Directive None Recorded Payers Insurance Date Sequence Insurance Name Policy Number Policy Willis Covered Member ID Willis Member ID Guarantor Name 10/27/2024 1 [place] [employer] Sharon Woods [id number] Sharon Woods 10/15/2023 1 [facility] Sharno Woods [id number] Sharon Woods 11/13/2024 2 [facility] INDEMNITY PLAN (MEDICARE SUPPLEMENT) [id number] Sharon fulton [id number] Sharon Woods Notes Date Note Type Note Provider Name and Address Organization Details Recorded Time 04/01/2024 text/html ROS as noted in the HPI I am seeing the patient today under [...] patient questions and concerns were answered today. [address], [place], [address], [facility] 04/03/2024 15:40:25 10/13/2024 text/html ROS as noted in the HPI Diagnosis: 1. 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
== END 2025-05-15 11:17 | disposition home or self-care (01) ==
LOC: HO.HPS 10:45
PROVIDERS: PCP Internal Medicine Endocrinology, Diabetes & Metabolism; Visit Provider Hospitalist
DX: J45.40 Moderate persistent asthma, uncomplicated (principal)
CPT/HCPCS: 99214; G2211

== ENCOUNTER → 2025-05-15 10:45 | Outpatient (BNVA) | payer MEDICARE, OTHER, SELFPAY | PROVIDERS: PCP Internal Medicine Endocrinology, Diabetes & Metabolism; Visit Provider Hospitalist | DX: J45.40 Moderate persistent asthma, uncomplicated (principal); I42.9 Cardiomyopathy, unspecified; D86.9 Sarcoidosis, unspecified; R91.8 Other nonspecific abnormal finding of lung field; Z23 Encounter for immunization | CPT/HCPCS: 90471; 90656; 99212 ==